=== PATIENT | female | born 1960 | race Caucasian/White ===

== ENCOUNTER → 2018-07-12 09:12 | Outpatient (CLI) | payer MEDICAID, SELFPAY ==
--- NOTE | 2018-07-12 10:06 | MM_ITS ---
MM Dig screening mamm BI w/CAD CAD Screening COMPARISON: Digital mammograms with CAD 07/06/2012 and 08/02/2013 INDICATION: There is no personal or family history of breast cancer TECHNIQUE: Standard CC and MLO images were obtained. R2 CAD reviewed. FINDINGS: Scattered fibroglandular densities are seen throughout both breasts. There is a stable nodular density with smooth borders 6:00 position right breast which has been shown to be cystic on previous ultrasound exam. There is no new or suspicious lesion in either breast. There is a benign-appearing calcification right breast. There are no suspicious microcalcifications. IMPRESSION: Stable exam no suspicious lesion seen BI-RADS Category: 2 Benign Finding(s) RECOMMENDED FOLLOW-UP: 1YR - 1 YEAR FOLLOW-UP (A letter has been sent to the patient regarding results of the study.)
== END ==
PROVIDERS: PCP Internal Medicine Adolescent Medicine; Visit Provider Nurse Practitioner Family
DX: Z12.31 Encounter for screening mammogram for malignant neoplasm of breast (principal)
CPT/HCPCS: 77067

== ENCOUNTER → 2019-02-21 12:32 | Outpatient (CLI) | payer MEDICAID, SELFPAY ==
--- NOTE | 2019-02-21 12:36 | XR_ITS ---
PROCEDURE: XR CHEST 2V CLINICAL HISTORY: COPD COPD, smoker COMPARISON: CXR CHEST(2 VIEWS-NOT PORTABLE) from 06/21/2012 CXR CHEST(2 VIEWS-NOT PORTABLE) from 10/27/2014 CXR CHEST(2 VIEWS-NOT PORTABLE) from 02/25/2015 FINDINGS: The cardiomediastinal silhouette and pulmonary vascularity are within normal limits. The lungs are clear without infiltrates, suspicious nodules, or pleural effusions. No acute bony abnormalities. IMPRESSION: No acute findings. Dictated by: Bryce Rodríguez MD 02/21/2019 17:12 Electronically signed by Bryce Rodríguez MD in [place] 02/21/2019 17:12
== END ==
PROVIDERS: PCP Internal Medicine Adolescent Medicine; Visit Provider Nurse Practitioner
DX: J44.9 Chronic obstructive pulmonary disease, unspecified (principal)
CPT/HCPCS: 71046

== ENCOUNTER 2019-02-25 16:25 | Observation (INO) ==
--- NOTE | 2019-02-25 17:03 | Emergency Department Note ---
ED Disposition Clinical Impression: Abdominal pain Disposition: Still a Patient Condition on Discharge: Table stool patient Instructions: DI for Acute Abdomen Referrals: Jluis Marie MD [Primary Care Provider] - - Critical Care Critical Care Time: No Attestation: On 02/25/19, the high probability of a clinically significant, sudden or life threatening deterioration of the following system(s) required my full and direct attention, intervention and personal management. The time I documented below is in addition to time spent performing reported procedures but includes the following listed in this critical care notation. Comment: Care patient turned over to Dr. Curiel. Medical Decision Making - Medical Records Medical records reviewed: Yes: I reviewed the patient's medical records. - Rubio Inquiry Pt receiving controlled substance: No Vital Signs: 02/25/19 16:44 Temperature 97.8 F Temperature Source Oral Pulse Rate [Radial] 84 Respiratory Rate 16 Blood Pressure [Right Arm] 172/93 H Blood Pressure Mean [Right Arm] 119 Blood Pressure Source [Right Arm] Automatic Cuff Blood Pressure Position [Right Arm] Sitting 02 Sat by Pulse Oximetry 98 Oxygen Delivery Method Room Air Orders (Tests/Meds): ED MEDICATIONS Discontinued Medications Generic Name Dose Route Start Last Admin Trade Name Freq PRN Reason Stop Dose Admin Diatrizoate Meglum/Diatrizoate Sod 30 ml 02/25/19 17:07 02/25/19 17:12 Gastrografin 66%-10% 30ml PO 02/25/19 17:08 30 ml ONCE ONE Administration ORDERS Category Date Time Status CT abdomen pelvis w con Stat Cat Scan 02/25/19 17:02 Ordered CBC [Complete Blood Count Auto Diff] Stat Lab 02/25/19 17:10 Received CMP [Comprehensive Metabolic Panel] Stat Lab 02/25/19 17:10 Received Lipase Stat Lab 02/25/19 17:10 Received PTT [Activated Partial Thrombo Time] Stat Lab 02/25/19 17:10 Received Prothrombin Time INR Stat Lab 02/25/19 17:10 Received Urinalysis and Microscopic Stat Lab 02/25/19 17:10 Received Abdominal Pain HPI - General Chief Complaint: Abdominal Pain Stated Complaint: Back,Right side.l Should, black stools Time Seen by Provider: 02/25/19 16:46 Mode of Arrival: Ambulatory Limitations: No Limitations Description of Symptoms (Recalled from ER Triage Doc. by RN): PATIENT COMPLAINS OF RIGHT SIDED BACK PAIN FOR 3-4 DAYS THAT RADIATES AROUND RIGHT LOWER ABDOMEN AND UP INTO LEFT SHOULDER. PATIENT COMPLAINS OF BLACK STOOLS. - History of Present Illness MD complaint: abdominal pain, flank pain Onset (ago): day(s) (3) Consistency: constant Location: RLQ Severity: severe Quality: aching Radiation: R flank Migration to: no migration Relieving factors: nothing Exacerbating factors: nothing - Related Data Home Medications Medication Instructions Recorded Confirmed atorvastatin 80 mg tablet PO 30 Days #30 tab 08/16/18 08/16/18 citalopram 40 mg tablet PO 30 Days #30 tab 08/16/18 08/16/18 fluticasone furoate 100 INHALATION 30 Days #60 each 08/16/18 08/16/18 mcg-vilanterol 25 mcg/dose inhalation powder lisinopril 20 PO 30 Days #30 tab 08/16/18 08/16/18 mg-hydrochlorothiazide 25 mg tablet metoprolol succinate ER 100 mg PO 30 Days #30 tab 08/16/18 08/16/18 tablet,extended release 24 hr omeprazole 40 mg capsule,delayed PO 30 Days #30 cap 08/16/18 08/16/18 release Previous Rx's Medication Instructions Recorded Benzonatate [Tessalon Perle 100mg 100 mg PO TID PRN #30 cap 10/15/17 Cap] Fluticasone Propionate [Flonase 2 spr NS DAILY #1 bottle 10/15/17 50mcg nasal spray 16gm] Allergies Allergy/AdvReac Type Severity Reaction Status Date / Time No Known Allergies Allergy Verified 08/16/18 08:42 [facility] History - Hepatitis A Screen Drug use history?: No High risk sexual behaviors?: No History of sexually transmitted infection?: No Currently employed?: No Childcare worker?: No Do you have indoor plumbing?: Yes Do you have electricity?: Yes Attestation statement:: This patient has been screened for Hepatitis A risk factors. I have reviewed the patient's past medical history: Yes Medical History: Reports:: Chronic Obstructive Pulmonary Disease (COPD), Hypertension Other Surgeries: Yes: Colonoscopy, Hysterectomy-Total Amputation: No Fractures: No - Social History Educational Level: Completed High School Smoking Status: Current every day smoker Tobacco Type: cigarettes # Packs/Day (cigarettes): 1 Alcohol Intake: never Occupational Status: other Family Hx:: No significant family history ROS Obtained: Yes All systems reviewed & no additional complaints - Constitutional Constitutional: Reports fatigue, Reports malaise - Eyes Eyes: Reports system reviewed and no additional complaints, except as docu - ENT Ears, Nose, Mouth, and Throat: Reports system reviewed and no additional complaints, except as docu - Cardiovascular Cardiovascular: Reports system reviewed and no additional complaints, except as docu - Respiratory Respiratory: Yes system reviewed and no additional complaints, except as docu - Gastrointestinal Gastrointestingal: Reports: abdominal pain, nausea, vomiting - Genitourinary Female Genitourinary: Reports system reviewed and no additional complaints, except as docu - Musculoskeletal Musculoskeletal: Reports system reviewed and no additional complaints, except as docu - Integumentary/Breasts Skin/Breast: Reports system reviewed and no additional complaints, except as docu - Neurologic Neurologic: Reports system reviewed and no additional complaints, except as docu - Endocrine Endocrine: Reports system reviewed and no additional complaints, except as docu - Hematologic/Lymphatic Henatologic/Lymphatic: Reports system reviewed and no additional complaints, except as docu - Allergic/Immunologic Allergic/Immunologic: Reports system reviewed and no additional complaints, except as docu Physical Exam - General General appearance: alert, in no apparent distress - Head Head exam: atraumatic, normocephalic, normal inspection - Eye Eye exam: Present: normal appearance, PERRL, EOMI - ENT ENT exam: Present: normal exam, normal oropharynx, mucous membranes moist, TM's normal bilaterally, normal external ear exam - Neck Neck exam: Present: normal inspection, full ROM, trachea midline. Absent: meningismus, lymphadenopathy - Chest Chest inspection: Present: normal inspection, symmetric chest wall rise. Absent: tenderness - Respiratory Respiratory exam: Present: normal lung sounds bilaterally. Absent: respiratory distress - Cardiovascular Cardiovascular exam: Present: regular rate, normal rhythm, normal heart sounds. Absent: JVD - Abdominal Exam Abdominal exam: Present: soft, tenderness, diminished bowel sounds. Absent: distention, guarding, rebound, rigidity Abdominal tenderness: Present: RUQ, RLQ - Extremities Exam Extremities exam: Present: normal inspection, full ROM, normal capillary refill. Absent: calf tenderness - Back Exam Back exam: Present: normal inspection. Absent: tenderness - Neurological Exam Neurological exam: Present: alert, oriented X3 - Psychiatric Psychiatric exam: Present: normal affect, normal mood - Skin Skin exam: Present: warm, dry, intact, normal color
[2019-02-25 17:15] LABS: Microscopic, Urine URINE MICROSCOPIC (MICROSCOPIC)
[2019-02-25 17:28] LABS: Basophils % 0.4 % (0.1-2.0); Eosinophils # 0.1 K/mm3 (0.0-0.4); Eosinophils % 1.1 % (0.1-12.0); Hematocrit 45.6 % (37.0-47.0); Hemoglobin 14.7 g/dL (12.2-16.2); Lymphocytes # 2.4 K/mm3 (0.7-4.5); Lymphocytes % 33.8 % (10-50); Mean Corpuscular HGB Conc 32.3 g/dL (31.8-35.4); Mean Corpuscular Volume 92.4 fl (81-99); Mean Platelet Volume 8.3 fl (7.4-10.4); Monocytes # 0.5 K/mm3 (0.1-1.0); Monocytes % 7.2 % (1.7-9.3); Neutrophils # 4.1 K/mm3 (1.8-7.8); Neutrophils % 57.4 % (37.0-80.0); Platelet Count 256 K/mm3 (142-424); Red Blood Count 4.93 M/mm3 (4.20-5.40); Red Cell Distribution Width 13.5 % (11.5-17.5); White Blood Count 7.1 K/mm3 (4.8-10.8)
[2019-02-25 17:29] LABS: Appearance,Urine CLEAR (Clear); Bilirubin,Urine Negative (Negative); Blood, Urine TRACE-I (Negative); Color,Urine YELLOW (Yellow); Glucose,Urine (UA) Negative (Negative); Ketones,Urine Negative (Negative); Leukocyte Esterase,Urine Negative (Negative); Protein,Urine Negative (Negative); Urobilinogen,Urine 0.2 EU/dl (0.2)
[2019-02-25 17:33] LABS: Activated Partial Thrombo Time 31.7 seconds (23.6-34.0); INR 1.03 (0.9-1.1); Prothrombin Time 10.7 seconds (9.4-11.8)
[2019-02-25 17:39] LABS: Albumin Level 3.7 gm/dL (3.4-5.0); Albumin/Globulin Ratio 0.9 (1.1-1.8); Bilirubin,Total 0.3 mg/dL (0.2-1.0); Globulin 3.9 gm/dl (1.3-3.2); RBC,Urine Occasional #/hpf (0-3); Total Protein,Serum 7.6 gm/dL (6.4-8.2)
[2019-02-25 17:40] LABS: Bacteria,Urine 1+ /lpf; Mucus,Urine 1+ /lpf; WBC,Urine Occasional #/hpf (0-3)
--- NOTE | 2019-02-25 20:39 | Emergency Department Note ---
ED Disposition Clinical Impression: Abdominal pain, Colitis Disposition: Admitted as Observation Condition on Discharge: Good Instructions: DI for Acute Abdomen Referrals: Jluis Marie MD [Primary Care Provider] - Time of Disposition: 20:40 - Critical Care Critical Care Time: No Attestation: On 02/25/19, the high probability of a clinically significant, sudden or life threatening deterioration of the following system(s) required my full and direct attention, intervention and personal management. The time I documented below is in addition to time spent performing reported procedures but includes the following listed in this critical care notation. Medical Decision Making - Medical Records Medical records reviewed: Yes: I reviewed the patient's medical records. - Rubio Inquiry Pt receiving controlled substance: No Rubio was queried for this patient: No Vital Signs: 02/25/19 16:44 Temperature 97.8 F Temperature Source Oral Pulse Rate [Radial] 84 Respiratory Rate 16 Blood Pressure [Right Arm] 172/93 H Blood Pressure Mean [Right Arm] 119 Blood Pressure Source [Right Arm] Automatic Cuff Blood Pressure Position [Right Arm] Sitting 02 Sat by Pulse Oximetry 98 Oxygen Delivery Method Room Air - Lab Data Lab results reviewed: Yes: I reviewed the patient's lab results. Lab Results 02/25/19 17:10: WBC 7.1, RBC 4.93, Hgb 14.7, Hct 45.6, MCV 92.4, MCH 29.9, MCHC 32.3, RDW 13.5, Plt Count 256, MPV 8.3, Neut % (Auto) 57.4, Lymph % (Auto) 33.8, [place] % (Auto) 7.2, Eos % (Auto) 1.1, Baso % (Auto) 0.4, Neut # (Auto) 4.1, Lymph # (Auto) 2.4, [place] # (Auto) 0.5, Eos # (Auto) 0.1, Baso # (Auto) 0.0 02/25/19 17:10: Sodium 139, Potassium 4.0, Chloride 104, Carbon Dioxide 30, Anion Gap 9.0, BUN 7, Creatinine 0.82, Estimated Creat Clear 79, Estimated GFR 71, Est GFR ( Amer) 86, Glucose 92, Calcium 9.0, Total Bilirubin 0.3, AST 14 L, ALT 19, Alkaline Phosphatase 109, Total Protein 7.6, Albumin 3.7, Globulin 3.9 H, Albumin/Globulin Ratio 0.9 L 02/25/19 17:10: Urine Color Yellow, Urine Appearance Clear, Urine pH 6.0, Ur Specific [place] 1.010, Urine Protein Negative, Urine Glucose (UA) Negative, Urine Ketones Negative, Urine Blood Trace-i, Urine Nitrate Negative, Urine Bilirubin Negative, Urine Urobilinogen 0.2, Ur Leukocyte Esterase Negative, Urine RBC Occasional, Urine WBC Occasional, Ur Squamous Epith Cells 3-5, Urine Bacteria 1+, Urine Mucus 1+ 02/25/19 17:10: PT 10.7, INR 1.03, APTT 31.7 02/25/19 17:10: Lipase 131 Result diagrams: 02/25/19 17:10 02/25/19 17:10 Orders (Tests/Meds): ED MEDICATIONS Generic Name Dose Route Start Last Admin Trade Name Freq PRN Reason Stop Dose Admin Metronidazole 500 mg in 100 mls @ 100 mls/hr 02/25/19 20:15 Flagyl 500mg/100ml Ivpb IV 03/11/19 20:14 Q8H PARISA Protocol Levofloxacin/Dextrose 750 mg in 150 mls @ 100 mls/hr 02/25/19 20:15 02/25/19 20:11 Levofloxacin 750mg/150ml Premix IV 03/11/19 20:14 100 mls/hr Q24H PARISA Administration Protocol Discontinued Medications Generic Name Dose Route Start Last Admin Trade Name Freq PRN Reason Stop Dose Admin Diatrizoate Meglum/Diatrizoate Sod 30 ml 02/25/19 17:07 02/25/19 17:12 Gastrografin 66%-10% 30ml PO 02/25/19 17:08 30 ml ONCE ONE Administration Methylprednisolone Sodium Succinate 125 mg 02/25/19 20:16 Solu-Medrol 125mg/2ml Vial IV 02/25/19 20:17 ONCE ONE ORDERS Category Date Time Status CT abdomen pelvis w con Stat Cat Scan 02/25/19 17:02 Taken Diarrhea 6-11 Panel, Cdiff PCR Stat Lab 02/25/19 19:00 Received - Physician Consults Physician Consulted: guanaco cueva. Reason -: Admission Additional Consult: shannan Time: 20:30 Reason -: Pt condition Abdominal Pain HPI - General Chief Complaint: Abdominal Pain Stated Complaint: Back,Right side.l Should, black stools Time Seen by Provider: 02/25/19 16:46 Mode of Arrival: Ambulatory Limitations: No Limitations Description of Symptoms (Recalled from ER Triage Doc. by RN): PATIENT COMPLAINS OF RIGHT SIDED BACK PAIN FOR 3-4 DAYS THAT RADIATES AROUND RIGHT LOWER ABDOMEN AND UP INTO LEFT SHOULDER. PATIENT COMPLAINS OF BLACK STOOLS. - History of Present Illness MD complaint: abdominal pain, flank pain Location: RLQ Severity: severe Quality: aching Migration to: no migration Relieving factors: nothing Exacerbating factors: nothing - Related Data Home Medications Medication Instructions Recorded Confirmed atorvastatin 80 mg tablet PO 30 Days #30 tab 08/16/18 08/16/18 citalopram 40 mg tablet PO 30 Days #30 tab 08/16/18 08/16/18 fluticasone furoate 100 INHALATION 30 Days #60 each 08/16/18 08/16/18 mcg-vilanterol 25 mcg/dose inhalation powder lisinopril 20 PO 30 Days #30 tab 08/16/18 08/16/18 mg-hydrochlorothiazide 25 mg tablet metoprolol succinate ER 100 mg PO 30 Days #30 tab 08/16/18 08/16/18 tablet,extended release 24 hr omeprazole 40 mg capsule,delayed PO 30 Days #30 cap 08/16/18 08/16/18 release Previous Rx's Medication Instructions Recorded Benzonatate [Tessalon Perle 100mg 100 mg PO TID PRN #30 cap 10/15/17 Cap] Fluticasone Propionate [Flonase 2 spr NS DAILY #1 bottle 10/15/17 50mcg nasal spray 16gm] Allergies Allergy/AdvReac Type Severity Reaction Status Date / Time No Known Allergies Allergy Verified 08/16/18 08:42 [facility] History - Hepatitis A Screen Drug use history?: No High risk sexual behaviors?: No History of sexually transmitted infection?: No Currently employed?: No Childcare worker?: No Do you have indoor plumbing?: Yes Do you have electricity?: Yes Attestation statement:: This patient has been screened for Hepatitis A risk factors. Medical History: Reports:: Chronic Obstructive Pulmonary Disease (COPD), Hypertension Other Surgeries: Yes: Colonoscopy, Hysterectomy-Total Amputation: No Fractures: No - Social History Educational Level: Completed High School Smoking Status: Current every day smoker Tobacco Type: cigarettes # Packs/Day (cigarettes): 1 Alcohol Intake: never Occupational Status: other Family Hx:: No significant family history ROS Obtained: Yes All systems reviewed & no additional complaints - Constitutional Constitutional: Reports system reviewed and no additional complaints, except as docu - Eyes Eyes: Reports system reviewed and no additional complaints, except as docu, Denies change in vision - ENT Ears, Nose, Mouth, and Throat: Reports system reviewed and no additional complaints, except as docu - Cardiovascular Cardiovascular: Reports system reviewed and no additional complaints, except as docu - Respiratory Respiratory: Yes system reviewed and no additional complaints, except as docu - Gastrointestinal Gastrointestingal: Reports: abdominal pain. Denies: belching, bloating - Musculoskeletal Musculoskeletal: Denies joint swelling - Integumentary/Breasts Skin/Breast: Denies rash - Neurologic Neurologic: Denies sensory deficit, Denies syncope, Denies vertigo, Denies weakness - Hematologic/Lymphatic Henatologic/Lymphatic: Denies easy bleeding, Denies easy bruising Physical Exam - General General appearance: alert, in no apparent distress - Head Head exam: atraumatic, normocephalic, normal inspection - Eye Eye exam: Present: normal appearance, PERRL, EOMI - ENT ENT exam: Present: normal exam, normal oropharynx, mucous membranes moist, TM's normal bilaterally, normal external ear exam - Neck Neck exam: Present: normal inspection, full ROM, trachea midline. Absent: meningismus, lymphadenopathy - Chest Chest inspection: Present: normal inspection, symmetric chest wall rise. Absent: tenderness - Respiratory Respiratory exam: Present: normal lung sounds bilaterally. Absent: respiratory distress - Cardiovascular Cardiovascular exam: Present: regular rate, normal rhythm. Absent: JVD - Abdominal Exam Abdominal exam: Present: soft, normal bowel sounds. Absent: distention, tenderness, guarding - Extremities Exam Extremities exam: Present: normal inspection, full ROM, normal capillary refill. Absent: calf tenderness - Back Exam Back exam: Present: normal inspection. Absent: tenderness - Neurological Exam Neurological exam: Present: alert, oriented X3 - Psychiatric Psychiatric exam: Present: normal affect, normal mood - Skin Skin exam: Present: warm, dry, intact, normal color
[2019-02-26 06:48] LABS: Basophils % 0.2 % (0.1-2.0); Eosinophils # 0.1 K/mm3 (0.0-0.4); Eosinophils % 1.7 % (0.1-12.0); Hematocrit 41.6 % (37.0-47.0); Hemoglobin 13.6 g/dL (12.2-16.2); Lymphocytes # 0.6 K/mm3 (0.7-4.5); Lymphocytes % 10.2 % (10-50); Mean Corpuscular HGB Conc 32.6 g/dL (31.8-35.4); Mean Corpuscular Volume 91.1 fl (81-99); Mean Platelet Volume 7.5 fl (7.4-10.4); Monocytes % 0.8 % (1.7-9.3); Neutrophils % 87.1 % (37.0-80.0); Platelet Count 233 K/mm3 (142-424); Red Blood Count 4.56 M/mm3 (4.20-5.40); Red Cell Distribution Width 13.5 % (11.5-17.5); White Blood Count 5.7 K/mm3 (4.8-10.8)
[2019-02-26 06:54] LABS: Anion Gap 13.2 mEq/L (5-15); Calcium 8.8 mg/dL (8.5-10.1)
[2019-02-26 07:00] LABS: Lymphocytes % 5 % (10-50); Neutrophils % 89 % (42-76); Total Cells Counted 100
[2019-02-26 07:01] LABS: RBC Morphology Normal
--- NOTE | 2019-02-26 07:46 | History & Physical Report ---
*Admission Date: 02/25/19 *Chief complaint: Abdominal pain *History of present illness: 58-year-old female presented to the emergency department with 3 days of crampy abdominal pain that was unrelenting and not improving. Patient denies fevers, nausea, vomiting. On the day of admission she had had 3-4 watery black stools. Pain was not made worse by eating or drinking. Patient had been self treating at home with application of ice packs and heating pad to her abdomen without improvement. She has no prior history of similar abdominal pains and is unsure of any family history of gastrointestinal diseases. Work-up in the emergency department was really significant only for abnormal CT scan which showed mild changes in the descending and sigmoid colon consistent with colitis. ER physician spoke with on-call surgeon but it was not felt this was a surgical issue at this time. Decision was made to admit for observation and IV antibiotics. This morning patient reports pain is slightly better. Nursing staff is reported patient made no request for pain medication overnight. [facility] History Medical History: Reports:: Chronic Obstructive Pulmonary Disease (COPD), Hypertension *Have you ever received a pneumonia vaccine?: Yes *Have you received a flu vaccine this season?: No (Wants flu shot) Other Surgeries: Yes: Colonoscopy, Hysterectomy-Total Amputation: No Fractures: No - *Social History Educational Level: Attended Grade School Smoking Status: Current every day smoker Tobacco Type: cigarettes # Packs/Day (cigarettes): 1 Alcohol Intake: never *Occupational Status:: other *Travel in the last 8 weeks: None Family Hx:: No significant family history Review of Systems - Constitutional Denies anorexia, Denies body ache(s), Denies chills, Denies malaise - *Cardiovascular Denies chest pain - *Respiratory Denies change in phlegm color, Denies chest congestion - *Gastrointestinal Reports abdominal pain, Reports bloating, Reports change in bowel habits, Reports change in stools, Reports cramping, Reports loose stools, Denies belching, Denies constipation, Denies heartburn, Denies heartburn, Denies vomiting blood, Denies bright, red blood in stools, Denies nausea, Denies vomiting - *Neurologic Denies sensory deficit, Denies fainting, Denies dizziness, Denies weakness Meds Home Medications Medication Instructions Recorded Confirmed Type atorvastatin 80 mg tablet 80 mg PO DAILY 30 Days #30 tab 08/16/18 02/25/19 History citalopram 40 mg tablet 40 mg pe PO DAILY 30 Days #30 tab 08/16/18 02/25/19 [place] fluticasone furoate 100 100 mcg INHALATION BID PRN 30 Days 08/16/18 02/25/19 History mcg-vilanterol 25 mcg/dose #60 each inhalation powder lisinopril 20 20 - 25 mg PO DAILY 30 Days #30 tab 08/16/18 02/25/19 History mg-hydrochlorothiazide 25 mg tablet metoprolol succinate ER 100 mg 100 mg PO DAILY 30 Days #30 tab 08/16/18 02/25/19 History tablet,extended release 24 hr omeprazole 40 mg capsule,delayed 40 mg PO DAILY 30 Days #30 cap 08/16/18 02/25/19 History release Allergies Allergy/AdvReac Type Severity Reaction Status Date / Time No Known Allergies Allergy Verified 08/16/18 08:42 Exam Vital signs and Labs for Last 24 Hours: Temp Pulse Resp BP Pulse Ox 98.1 F 79 16 158/80 H 93 L 02/26/19 04:00 02/26/19 04:00 02/26/19 04:00 02/26/19 04:00 02/26/19 04:00 Laboratory Results - last 24 hr 02/25/19 17:10: WBC 7.1, RBC 4.93, Hgb 14.7, Hct 45.6, MCV 92.4, MCH 29.9, MCHC 32.3, RDW 13.5, Plt Count 256, MPV 8.3, Neut % (Auto) 57.4, Lymph % (Auto) 33.8, [place] % (Auto) 7.2, Eos % (Auto) 1.1, Baso % (Auto) 0.4, Neut # (Auto) 4.1, Lymph # (Auto) 2.4, [place] # (Auto) 0.5, Eos # (Auto) 0.1, Baso # (Auto) 0.0 02/25/19 17:10: Sodium 139, Potassium 4.0, Chloride 104, Carbon Dioxide 30, Anion Gap 9.0, BUN 7, Creatinine 0.82, Estimated Creat Clear 79, Estimated GFR 71, Est GFR ( Amer) 86, Glucose 92, Calcium 9.0, Total Bilirubin 0.3, AST 14 L, ALT 19, Alkaline Phosphatase 109, Total Protein 7.6, Albumin 3.7, Globulin 3.9 H, Albumin/Globulin Ratio 0.9 L 02/25/19 17:10: Urine Color Yellow, Urine Appearance Clear, Urine pH 6.0, Ur Specific [place] 1.010, Urine Protein Negative, Urine Glucose (UA) Negative, Urine Ketones Negative, Urine Blood Trace-i, Urine Nitrate Negative, Urine Bilirubin Negative, Urine Urobilinogen 0.2, Ur Leukocyte Esterase Negative, Urine RBC Occasional, Urine WBC Occasional, Ur Squamous Epith Cells 3-5, Urine Bacteria 1+, Urine Mucus 1+ 02/25/19 17:10: PT 10.7, INR 1.03, APTT 31.7 02/25/19 17:10: Lipase 131 02/25/19 19:00: Stl Aeromonas (PCR) Not detected, Stl C. cayetanensis PCR Not detected, Stool Rotavirus (PCR) Not detected, Stl Adenov F 40/41 PCR Not detected, Stool Astrovirus (PCR) Not detected, Stool Campylobacter PCR Not detected, Stl C.difficile Tox PCR Not detected, Stool Cryptosporidium PCR Not detected, Stl E.coli Shiga Tox PCR Not detected, Stool E coli O157 PCR Not detected, Stl Enterotoxigenic E PCR Not detected, Stool EPEC (PCR) Not detected, Stool EAEC (PCR) Not detected, Stl E. histolytica PCR Not detected, Stool Giardia Lamblia PCR Not detected, Stool Salmonella PCR Not detected, Stool Sapovirus (PCR) Not detected, Stl P. shigelloides PCR Not detected, Stl Shigella/EIEC PCR Not detected, St Y.enterocolitica PCR Not detected, Stool Vibrio (PCR) Not detected, Stl Vibrio cholerae PCR Not detected, Stl Norovirus GI/GII PCR Not detected 02/25/19 20:37: Stool Occult Blood Negative 02/26/19 06:23: WBC 5.7, RBC 4.56, Hgb 13.6, Hct 41.6, MCV 91.1, MCH 29.7, MCHC 32.6, RDW 13.5, Plt Count 233, MPV 7.5, Neut % (Auto) 87.1 H, Lymph % (Auto) 10.2, [place] % (Auto) 0.8 L, Eos % (Auto) 1.7, Baso % (Auto) 0.2, Neut # (Auto) 5.0, Lymph # (Auto) 0.6 L, [place] # (Auto) 0.0 L, Eos # (Auto) 0.1, Baso # (Auto) 0.0, Total Counted 100, Neutrophils % (Manual) 89 H, Band Neutrophils % 6.0, Lymphocytes % (Manual) 5 L, Platelet Estimate Normal, RBC Morphology Normal 02/26/19 06:23: Sodium 139, Potassium 4.2, Chloride 106, Carbon Dioxide 24, Anion Gap 13.2, BUN 10 D, Creatinine 0.76, Estimated Creat Clear 86, Estimated GFR 78, Est GFR ( Amer) 94, Glucose 149 H D, Calcium 8.8 I & O for Last 24 hours: Intake & Output 02/23/19 02/24/19 02/25/19 02/26/19 11:59 11:59 11:59 11:59 Intake Total 806 / 806 Output Total 150 / 150 Balance 656 / 656 Weight 150 lb 4 oz Narrative: Patient awakens easily this morning. During interview and exam she does appear uncomfortable. Oropharynx is clear. Neck has no lymphadenopathy. Lungs are distant but overall clear without rales, rhonchi, wheezes. Heart has a regular rate and rhythm. Abdomen is soft and mildly distended with minimal tenderness along the left upper and lower quadrant. Bowel sounds are present. Patient has active range of motion in all extremities. No neurologic deficit. Assessment and Plan (1) Colitis Current visit: Yes Status: Acute Category: Medical Code(s): K52.9 - Noninfective gastroenteritis and colitis, unspecified Patient will continue on Levaquin and Flagyl. Advance diet to clear liquids. I have discussed with patient the possibility of going home this afternoon if she is feeling better and is not requiring any significant interventions for pain control.
--- NOTE | 2019-02-26 11:02 | Pharmacy Consult Notes ---
[facility] VTE Monitoring - Patient Demographics Admission date: 02/25/19 Report Date: 02/26/19 Time: 11:02 Allergies/Adverse Reactions: Patient Allergies No Known Allergies Allergy (Verified 08/16/18 08:42) Height: 1.63 m Weight: 68.152 kg Patient Problems: Current Active Problems Abdominal pain (Acute) Colitis (Acute) - VTE Risk Labs: VTE Related Lab Results Hgb 13.6 g/dL (12.2-16.2) 02/26/19 06:23 Hct 41.6 % (37.0-47.0) 02/26/19 06:23 Plt Count 233 K/mm3 (142-424) 02/26/19 06:23 PT 10.7 seconds (9.4-11.8) 02/25/19 17:10 INR 1.03 (0.9-1.1) 02/25/19 17:10 APTT 31.7 seconds (23.6-34.0) 02/25/19 17:10 BUN 10 mg/dL (7-18) D 02/26/19 06:23 Creatinine 0.76 mg/dL (0.55-1.02) 02/26/19 06:23 Estimated Creat Clear 86 mL/min (50-200) 02/26/19 06:23 VTE Score: 1 - Prophylaxis VTE Prophylaxis Ordered?: Yes Types of VTE Prophylaxis: TEDS Knee High Location of Applied Device: Bilateral Lower Extremeties
--- NOTE | 2019-02-26 14:40 | Discharge Summary ---
General - General Admission date:: 02/25/19 Discharge date: 02/26/19 HPI HPI: 58-year-old female presented to the emergency department with 3 days of crampy abdominal pain that was unrelenting and not improving. Patient denies fevers, nausea, vomiting. On the day of admission she had had 3-4 watery black stools. Pain was not made worse by eating or drinking. Patient had been self treating at home with application of ice packs and heating pad to her abdomen without improvement. She has no prior history of similar abdominal pains and is unsure of any family history of gastrointestinal diseases. Work-up in the emergency department was really significant only for abnormal CT scan which showed mild changes in the descending and sigmoid colon consistent with colitis. ER physician spoke with on-call surgeon but it was not felt this was a surgical issue at this time. Decision was made to admit for observation and IV antibiotics. This morning patient reports pain is slightly better. Nursing staff is reported patient made no request for pain medication overnight. Hospital Course Hospital Course: Patient was admitted and observed. Her abdominal pain improved and she did not require additional pain medication for abdominal pain.Her WBC remained normal. Her diet was advanced to full liquids which she tolerated. She did have some loose stools. As she was tolerating her diet and not requiring pain medication she was discharged to home and will follow up with as an outpatient. She was discharged home on oral metronidazole and cipro. Objective Vital signs: Temp Pulse Resp BP Pulse Ox 97.8 F 74 18 158/83 H 94 L 02/26/19 07:43 02/26/19 07:43 02/26/19 07:43 02/26/19 07:43 02/26/19 08:00 Results Labs on day of discharge: Labs from last 24 hours 02/26/19 02/26/19 02/26/19 11:40 06:23 06:23 WBC 5.7 RBC 4.56 Hgb 13.6 Hct 41.6 MCV 91.1 MCH 29.7 MCHC 32.6 RDW 13.5 Plt Count 233 MPV 7.5 Neut % (Auto) 87.1 H Lymph % (Auto) 10.2 [place] % (Auto) 0.8 L Eos % (Auto) 1.7 Baso % (Auto) 0.2 Neut # (Auto) 5.0 Lymph # (Auto) 0.6 L [place] # (Auto) 0.0 L Eos # (Auto) 0.1 Baso # (Auto) 0.0 Total Counted 100 Neutrophils % (Manual) 89 H Band Neutrophils % 6.0 Lymphocytes % (Manual) 5 L Platelet Estimate Normal RBC Morphology Normal PT INR APTT Sodium 139 Potassium 4.2 Chloride 106 Carbon Dioxide 24 Anion Gap 13.2 BUN 10 D Creatinine 0.76 Estimated Creat Clear 86 Estimated GFR 78 Est GFR ( Amer) 94 Glucose 149 H D Calcium 8.8 Total Bilirubin AST ALT Alkaline Phosphatase Total Protein Albumin Globulin Albumin/Globulin Ratio Lipase Urine Color Urine Appearance Urine pH Ur Specific [place] Urine Protein Urine Glucose (UA) Urine Ketones Urine Blood Urine Nitrate Urine Bilirubin Urine Urobilinogen Ur Leukocyte Esterase Urine RBC Urine WBC Ur Squamous Epith Cells Urine Bacteria Urine Mucus Stool Occult Blood Negative Stl Aeromonas (PCR) Stl C. cayetanensis PCR Stool Rotavirus (PCR) Stl Adenov F 40/41 PCR Stool Astrovirus (PCR) Stool Campylobacter PCR Stl C.difficile Tox PCR Stool Cryptosporidium PCR Stl E.coli Shiga Tox PCR Stool E coli O157 PCR Stl Enterotoxigenic E PCR Stool EPEC (PCR) Stool EAEC (PCR) Stl E. histolytica PCR Stool Giardia Lamblia PCR Stool Salmonella PCR Stool Sapovirus (PCR) Stl P. shigelloides PCR Stl Shigella/EIEC PCR St Y.enterocolitica PCR Stool Vibrio (PCR) Stl Vibrio cholerae PCR Stl Norovirus GI/GII PCR 02/25/19 02/25/19 02/25/19 20:37 19:00 17:10 WBC RBC Hgb Hct MCV MCH MCHC RDW Plt Count MPV Neut % (Auto) Lymph % (Auto) [place] % (Auto) Eos % (Auto) Baso % (Auto) Neut # (Auto) Lymph # (Auto) [place] # (Auto) Eos # (Auto) Baso # (Auto) Total Counted Neutrophils % (Manual) Band Neutrophils % Lymphocytes % (Manual) Platelet Estimate RBC Morphology PT INR APTT Sodium Potassium Chloride Carbon Dioxide Anion Gap BUN Creatinine Estimated Creat Clear Estimated GFR Est GFR ( Amer) Glucose Calcium Total Bilirubin AST ALT Alkaline Phosphatase Total Protein Albumin Globulin Albumin/Globulin Ratio Lipase 131 Urine Color Urine Appearance Urine pH Ur Specific [place] Urine Protein Urine Glucose (UA) Urine Ketones Urine Blood Urine Nitrate Urine Bilirubin Urine Urobilinogen Ur Leukocyte Esterase Urine RBC Urine WBC Ur Squamous Epith Cells Urine Bacteria Urine Mucus Stool Occult Blood Negative Stl Aeromonas (PCR) Not detected Stl C. cayetanensis PCR Not detected Stool Rotavirus (PCR) Not detected Stl Adenov F 40/41 PCR Not detected Stool Astrovirus (PCR) Not detected Stool Campylobacter PCR Not detected Stl C.difficile Tox PCR Not detected Stool Cryptosporidium PCR Not detected Stl E.coli Shiga Tox PCR Not detected Stool E coli O157 PCR Not detected Stl Enterotoxigenic E PCR Not detected Stool EPEC (PCR) Not detected Stool EAEC (PCR) Not detected Stl E. histolytica PCR Not detected Stool Giardia Lamblia PCR Not detected Stool Salmonella PCR Not detected Stool Sapovirus (PCR) Not detected Stl P. shigelloides PCR Not detected Stl Shigella/EIEC PCR Not detected St Y.enterocolitica PCR Not detected Stool Vibrio (PCR) Not detected Stl Vibrio cholerae PCR Not detected Stl Norovirus GI/GII PCR Not detected 02/25/19 02/25/19 02/25/19 17:10 17:10 17:10 WBC RBC Hgb Hct MCV MCH MCHC RDW Plt Count MPV Neut % (Auto) Lymph % (Auto) [place] % (Auto) Eos % (Auto) Baso % (Auto) Neut # (Auto) Lymph # (Auto) [place] # (Auto) Eos # (Auto) Baso # (Auto) Total Counted Neutrophils % (Manual) Band Neutrophils % Lymphocytes % (Manual) Platelet Estimate RBC Morphology PT 10.7 INR 1.03 APTT 31.7 Sodium 139 Potassium 4.0 Chloride 104 Carbon Dioxide 30 Anion Gap 9.0 BUN 7 Creatinine 0.82 Estimated Creat Clear 79 Estimated GFR 71 Est GFR ( Amer) 86 Glucose 92 Calcium 9.0 Total Bilirubin 0.3 AST 14 L ALT 19 Alkaline Phosphatase 109 Total Protein 7.6 Albumin 3.7 Globulin 3.9 H Albumin/Globulin Ratio 0.9 L Lipase Urine Color Yellow Urine Appearance Clear Urine pH 6.0 Ur Specific [place] 1.010 Urine Protein Negative Urine Glucose (UA) Negative Urine Ketones Negative Urine Blood Trace-i Urine Nitrate Negative Urine Bilirubin Negative Urine Urobilinogen 0.2 Ur Leukocyte Esterase Negative Urine RBC Occasional Urine WBC Occasional Ur Squamous Epith Cells 3-5 Urine Bacteria 1+ Urine Mucus 1+ Stool Occult Blood Stl Aeromonas (PCR) Stl C. cayetanensis PCR Stool Rotavirus (PCR) Stl Adenov F PCR Stool Astrovirus (PCR) Stool Campylobacter PCR Stl C.difficile Tox PCR Stool Cryptosporidium PCR Stl E.coli Shiga Tox PCR Stool E coli O157 PCR Stl Enterotoxigenic E PCR Stool EPEC (PCR) Stool EAEC (PCR) Stl E. histolytica PCR Stool Giardia Lamblia PCR Stool Salmonella PCR Stool Sapovirus (PCR) Stl P. shigelloides PCR Stl Shigella/EIEC PCR St Y.enterocolitica PCR Stool Vibrio (PCR) Stl Vibrio cholerae PCR Stl Norovirus GI/GII PCR 02/25/19 17:10 WBC 7.1 RBC 4.93 Hgb 14.7 Hct 45.6 MCV 92.4 MCH 29.9 MCHC 32.3 RDW 13.5 Plt Count 256 MPV 8.3 Neut % (Auto) 57.4 Lymph % (Auto) 33.8 [place] % (Auto) 7.2 Eos % (Auto) 1.1 Baso % (Auto) 0.4 Neut # (Auto) 4.1 Lymph # (Auto) 2.4 [place] # (Auto) 0.5 Eos # (Auto) 0.1 Baso # (Auto) 0.0 Total Counted Neutrophils % (Manual) Band Neutrophils % Lymphocytes % (Manual) Platelet Estimate RBC Morphology PT INR APTT Sodium Potassium Chloride Carbon Dioxide Anion Gap BUN Creatinine Estimated Creat Clear Estimated GFR Est GFR ( Amer) Glucose Calcium Total Bilirubin AST ALT Alkaline Phosphatase Total Protein Albumin Globulin Albumin/Globulin Ratio Lipase Urine Color Urine Appearance Urine pH Ur Specific [place] Urine Protein Urine Glucose (UA) Urine Ketones Urine Blood Urine Nitrate Urine Bilirubin Urine Urobilinogen Ur Leukocyte Esterase Urine RBC Urine WBC Ur Squamous Epith Cells Urine Bacteria Urine Mucus Stool Occult Blood Stl Aeromonas (PCR) Stl C. cayetanensis PCR Stool Rotavirus (PCR) Stl Adenov F PCR Stool Astrovirus (PCR) Stool Campylobacter PCR Stl C.difficile Tox PCR Stool Cryptosporidium PCR Stl E.coli Shiga Tox PCR Stool E coli O157 PCR Stl Enterotoxigenic E PCR Stool EPEC (PCR) Stool EAEC (PCR) Stl E. histolytica PCR Stool Giardia Lamblia PCR Stool Salmonella PCR Stool Sapovirus (PCR) Stl P. shigelloides PCR Stl Shigella/EIEC PCR St Y.enterocolitica PCR Stool Vibrio (PCR) Stl Vibrio cholerae PCR Stl Norovirus GI/GII PCR DS: Diagnosis - Discharge Diagnosis (1) Colitis Status: Acute Discharge Plan - Patient Discharge Instructions ACTIVITY: Continue current activity DIET: continue same diet Patient Instructions: DI for Abdominal Pain-Adult, DI for Colitis - Follow up Plan Follow up with: Jluis Marie MD [Primary Care Provider] - 2 days Home Medications: Home Medications Medication Instructions Recorded Confirmed Type atorvastatin 80 mg tablet 80 mg PO HS 30 Days #30 tab 08/16/18 02/26/19 History citalopram 40 mg tablet 40 mg PO HS 30 Days #30 tab 08/16/18 02/26/19 History fluticasone furoate 100 1 puff INHALATION BID PRN 30 Days 08/16/18 02/26/19 History mcg-vilanterol 25 mcg/dose #60 each inhalation powder lisinopril 20 20 - 25 mg PO HS 30 Days #30 tab 08/16/18 02/26/19 History mg-hydrochlorothiazide 25 mg tablet metoprolol succinate ER 100 mg 100 mg PO HS 30 Days #30 tab 08/16/18 02/26/19 History tablet,extended release 24 hr omeprazole 40 mg capsule,delayed 40 mg PO HS 30 Days #30 cap 08/16/18 02/26/19 History release Albuterol Sulfate [Albuterol HFA 2 puffs IH Q4HP PRN 02/26/19 02/26/19 History Inhaler] Cetirizine HCl 10 mg PO HS PRN 02/26/19 02/26/19 History Ciprofloxacin HCl [Cipro 500mg 500 mg PO BID #20 tab 02/26/19 Rx Tab] Fluticasone Propionate 2 spry NOSTRIL-B DAILY PRN 02/26/19 02/26/19 History Levocetirizine Dihydrochloride 5 mg PO HS PRN 02/26/19 02/26/19 History Montelukast Sodium [Montelukast 10 mg PO HS PRN 02/26/19 02/26/19 History 10mg Tab] Sennosides [Vicki-Benita] 2 tab PO HS PRN 02/26/19 02/26/19 History Triamcinolone Acetonide 1 applicatio TP BID 10/27/19 10/27/19 History diphenhydrAMINE HCl [Benadryl 25 mg PO NEEDED PRN 02/26/19 02/26/19 History Allergy] metroNIDAZOLE [metroNIDAZOLE 500mg 500 mg PO TID #30 tab 02/26/19 Rx Tablet] raNITIdine HCl [Ranitidine HCl] 150 mg PO DAILY 02/26/19 02/26/19 History Prescriptions/Medication Reconciliation: New Ciprofloxacin HCl [Cipro 500mg Tab] 500 mg PO BID #20 tab metroNIDAZOLE [metroNIDAZOLE 500mg Tablet] 500 mg PO TID #30 tab Continued lisinopril 20 mg-hydrochlorothiazide 25 mg tablet 20 - 25 mg PO HS 30 Days #30 tab omeprazole 40 mg capsule,delayed release 40 mg PO HS 30 Days #30 cap metoprolol succinate ER 100 mg tablet,extended release 24 hr 100 mg PO HS 30 Days #30 tab atorvastatin 80 mg tablet 80 mg PO HS 30 Days #30 tab fluticasone furoate 100 mcg-vilanterol 25 mcg/dose inhalation powder 1 puff INHALATION BID PRN 30 Days #60 each PRN Reason: BREATHING citalopram 40 mg tablet 40 mg PO HS 30 Days #30 tab Triamcinolone Acetonide 1 applicatio TP BID Levocetirizine Dihydrochloride 5 mg PO HS PRN PRN Reason: ALLERGIES Sennosides [Vicki-Benita] 2 tab PO HS PRN PRN Reason: BOWELS Fluticasone Propionate 2 spry NOSTRIL-B DAILY PRN PRN Reason: ALLERGIES Cetirizine HCl 10 mg PO HS PRN PRN Reason: ALLERGIES Albuterol Sulfate [Albuterol HFA Inhaler] 2 puffs IH Q4HP PRN PRN Reason: Shortness Of Breath Or Wheezing diphenhydrAMINE HCl [Benadryl Allergy] 25 mg PO NEEDED PRN PRN Reason: ALLERGIES raNITIdine HCl [Ranitidine HCl] 150 mg PO DAILY Montelukast Sodium [Montelukast 10mg Tab] 10 mg PO HS PRN PRN Reason: ALLERGIES - Problem Reconciliation Problems Reviewed?: Yes
== END 2019-02-26 16:00 | disposition home or self-care (01) ==
LOC: 2ND 16:25 → ER 16:25 → 2ND 21:01
PROVIDERS: ADMIT Family Medicine; ATTEND Internal Medicine Adolescent Medicine
CPT/HCPCS: 36415; 74177; 80048; 80053; 81001; 82272; 83690; 85007; 85025; 85610; 85730; 87506; 90686; 96365; 99284; G0328; G0378; J1956

== ENCOUNTER → 2019-05-15 14:25 | Outpatient (POV) | payer MEDICAID, SELFPAY | PROVIDERS: Visit Provider Nurse Practitioner Family | DX: Z00.00 Encounter for general adult medical examination without abnormal findings (principal) ==

== ENCOUNTER → 2019-05-23 10:17 | Outpatient (CLI) | payer OTHER, SELFPAY ==
[2019-05-23 10:37] LABS: Basophils % 0.4 % (0.1-2.0); Eosinophils # 0.1 K/mm3 (0.0-0.4); Eosinophils % 2.1 % (0.1-12.0); Hematocrit 43.5 % (37.0-47.0); Hemoglobin 13.8 g/dL (12.2-16.2); Lymphocytes # 2.1 K/mm3 (0.7-4.5); Mean Corpuscular HGB Conc 31.6 g/dL (31.8-35.4); Mean Corpuscular Volume 91.8 fl (81-99); Mean Platelet Volume 7.3 fl (7.4-10.4); Monocytes # 0.4 K/mm3 (0.1-1.0); Monocytes % 5.7 % (1.7-9.3); Neutrophils # 4.3 K/mm3 (1.8-7.8); Neutrophils % 61.8 % (37.0-80.0); Platelet Count 317 K/mm3 (142-424); Red Blood Count 4.74 M/mm3 (4.20-5.40); Red Cell Distribution Width 13.3 % (11.5-17.5); White Blood Count 6.9 K/mm3 (4.8-10.8)
[2019-05-23 11:24] LABS: Alanine Aminotransferase 12 U/L (12-78); Albumin Level 3.4 gm/dL (3.4-5.0); Alkaline Phosphatase 128 U/L (46-116); Anion Gap 16.2 mEq/L (5-15); Aspartate Amino Transferase 9 U/L (15-37); Bilirubin,Total 0.4 mg/dL (0.2-1.0); Blood Urea Nitrogen 9 mg/dL (7-18); Calcium 9.2 mg/dL (8.5-10.1); Carbon Dioxide 28 mmol/L (21.0-32.0); Chloride 102 mmol/L (98-107); Creatinine,Serum 0.85 mg/dL (0.55-1.02); Estimated Glomerular Filt Rate 68 ml/min (>60); GFR (African American) 83 ML/MIN (>60); Globulin 3.4 gm/dl (1.3-3.2); Glucose 88 mg/dL (74-106); Potassium 4.2 mmoL/L (3.5-5.1); Sodium 142 mmol/L (136-145); Total Protein,Serum 6.8 gm/dL (6.4-8.2)
--- NOTE | 2019-05-23 11:30 | CT_ITS ---
PROCEDURE: CT ABDOMEN PELVIS W CON CLINICAL INDICATION: BLOATING,ALTERED BOWEL FUNCTION,CONSTIPATION,ABD PAIN,GERD COMPARISON: CT ABDOMEN PELVIS W CON from 02/25/2019 TECHNIQUE: IV Contrast: 75ML OPTIRAY 350 Oral Contrast 20ml Gastroview Axial images obtained with sagittal and coronal reformats. All CT scans at the facility use one or more dose reduction, viz: automated exposure control, ma/kV adjustment per patient size (including targeted exams where dose is matched to indication, i.e. head), or iterative reconstruction technique. FINDINGS: LOWER THORAX: There is a small hiatal hernia. ABDOMEN & PELVIS: There is mild fatty infiltration of the liver without a focal lesion. The liver, spleen, pancreas, adrenal glands, and kidneys show no acute finding. No intestinal obstruction or free air. No evidence of appendicitis or diverticulitis. No pelvic mass, abnormal fluid collection, or focal inflammatory change of the pelvis. No acute bony anomalies. IMPRESSION: No acute findings. Dictated by: Joselito Vidal 05/23/2019 14:36 Electronically signed by Joselito Vidal in [facility] 05/23/2019 14:36
== END ==
PROVIDERS: Referring Provider Nurse Practitioner Family; Visit Provider Nurse Practitioner Family
DX: R14.0 Abdominal distension (gaseous) (principal); R19.4 Change in bowel habit; K59.00 Constipation, unspecified; R10.32 Left lower quadrant pain; K21.9 Gastro-esophageal reflux disease without esophagitis
CPT/HCPCS: 36415; 74177; 80053; 85025; Q9967

== ENCOUNTER → 2019-09-26 09:16 | Outpatient (CLI) | payer OTHER, SELFPAY ==
--- NOTE | 2019-09-26 09:25 | MM_ITS ---
PROCEDURE: MM DIG SCREENING MAMM BI W/CAD Digital Breast Tomosynthesis Included CLINICAL INDICATION: SCREENING There is no personal or family history of breast cancer. COMPARISON: [id number] DIG MAMM-DX UNIL ADD VIEWS-RT from 07/15/2012 [facility] DIG MAMM-SCREEN ROD from 08/02/2013 [facility] MM Dig screening mamm BI w/CAD from 07/12/2018 TECHNIQUE: Standard CC and MLO images and 3D Tomosynthesis was obtained. R2 CAD reviewed. FINDINGS: The breasts are composed primarily of fat with minimal scattered fibroglandular densities in each breast. There is a stable round benign-appearing nodular density lower right breast 6 o'clock position which has been shown to be cystic on previous ultrasound exams. It is stable and unchanged from previous exams. There are additional tiny benign-appearing nodular densities right breast which are stable. There is no suspicious lesion and no suspicious microcalcifications. IMPRESSION: Fatty type breast parenchyma with no suspicious lesions seen BI-RAD Category: 2 Benign Finding(s) FOLLOW-UP: 1YR 1 Year Follow-up (A letter has been sent to the patient regarding results of the study.) Dictated by: Dr. Rojas Moore MD 09/27/2019 17:[address] Rojas Moore MD in [facility] 09/27/2019 17:15
== END ==
PROVIDERS: PCP Internal Medicine Adolescent Medicine; Visit Provider Internal Medicine Adolescent Medicine
DX: Z12.31 Encounter for screening mammogram for malignant neoplasm of breast (principal)
CPT/HCPCS: 77063; 77067

== ENCOUNTER → 2020-08-14 09:38 | Outpatient (CLI) | payer OTHER, SELFPAY ==
[2020-08-14 10:35] VITALS: PULSE 89; PULSE 92
--- NOTE | 2020-08-14 13:48 | CT_ITS ---
PROCEDURE: CT LUNG SCREENING CLINICAL INDICATION: LDCT Current smoker 90 pack year smoking history Copd, emphysema No prior COMPARISON: MG MM DIG SCREENING MAMM BI W/CAD from 09/26/2019 TECHNIQUE: The exam was performed on a GE Shoot Extreme Speed [address] scanner using 2.90 mGy CTDI. A low dose helical CT CHEST was performed on a multi-detector scanner. All CT scans at the facility use one or more dose reduction, viz: automated exposure control, ma/kV adjustment per patient size (including targeted exams where dose is matched to indication, i.e. head), or iterative reconstruction technique. The LDCT was performed in a facility that meets the criteria for the screening program. Data regarding this exam was submitted to ACR which is an approved registry. The order for this exam indicates that it came as a result of a lung cancer screening counseling shard decision-making visit that included all the elements required of such a visit including smoking cessation. The radiologist interpreting this exam meets the CMS criteria for the LDCT lung cancer screening program. The exam is reported using the Lung-RADS classification scale and reported to the ACR registry. NOTE: This study was performed for the specific purposes of lung cancer screening and is not an alternative to diagnostic chest CT. RADIATION DOSE: CTDI vol(CT dose Index-volume) = 2.90mG DLP (Dose Length Product) = 94.03 mGcm FINDINGS: COPD changes. Mild bronchial thickening. No suspicious nodules identified.. There is minimal focal area protrusion along the aortic arch on the left series 3, image 20-22. Small hiatal hernia.. There is a 8 mm nodule along the inferior aspect of the right breast. This has been described on previous mammogram of 09/26/2019 and had a benign appearance.. Minimal wedge contour of T10 and T6 age indeterminate. IMPRESSION: Lung-RADS Category 1 Negative Follow-up: Continue annual screening with LDCT in 12 months Consider six-month CTA chest to confirm stability of the minimal protrusion of the thoracic aorta Dictated by: Bryce Rodríguez MD 08/26/2020 10:15 Bryce Rodríguez MD in [facility] 08/26/2020 10:15
== END ==
PROVIDERS: PCP Internal Medicine Adolescent Medicine; Visit Provider Internal Medicine Pulmonary Disease
DX: Z87.891 Personal history of nicotine dependence (principal); Z12.2 Encounter for screening for malignant neoplasm of respiratory organs; J44.9 Chronic obstructive pulmonary disease, unspecified
CPT/HCPCS: 71271; 94060; 94618; 94640; 94727; 94729

== ENCOUNTER → 2022-02-19 09:05 | Outpatient (CLI) | payer OTHER, SELFPAY ==
--- NOTE | 2022-02-19 09:13 | MM_ITS ---
PROCEDURE INFORMATION: Exam: MG Bilateral Screening 3D Mammography Exam date and time: 02/19/2022 9:49 AM Age: 61 years old Clinical indication: Screening examination TECHNIQUE: Imaging protocol: Bilateral Screening tomosynthesis and 2D mammography including computer-aided detection (CAD) when performed. COMPARISON: 1. MG MM DIG SCREENING MAMM BI W/CAD 09/26/2019 10:20 AM 2. MG [facility] MM Dig screening mamm BI w/CAD 07/12/2018 11:07 AM FINDINGS: MAMMOGRAPHY: Breast composition: There are scattered areas of fibroglandular density. Mass: 0.6 cm mass in the middle third of the right upper outer quadrant. The finding may represent a benign lymph node Architectural distortion: None. Calcifications: No suspicious calcifications. Asymmetric density: None. Skin thickening: None. Axillary adenopathy: None. IMPRESSION: Patient to be recalled for right breast ultrasound for further evaluation of a right breast mass. ASSESSMENT: BI-RADS Category 0: Incomplete- Need Additional Imaging Evaluation and/or Prior Mammograms for Comparison
== END ==
PROVIDERS: PCP Internal Medicine Adolescent Medicine; Visit Provider Nurse Practitioner Family
DX: Z12.31 Encounter for screening mammogram for malignant neoplasm of breast (principal)
CPT/HCPCS: 77063; 77067

== ENCOUNTER → 2022-03-13 14:33 | Outpatient (CLI) | payer OTHER, SELFPAY ==
--- NOTE | 2022-03-13 14:40 | US_ITS ---
PROCEDURE INFORMATION: Exam: US Right Breast, Complete Exam date and time: 03/13/2022 3:09 PM Age: 61 years old Clinical indication: Recall on the basis of screening mammogram 02/19/2022 for sonographic evaluation of 0.6 cm mass in the middle 3rd of the right upper outer quadrant. TECHNIQUE: Imaging protocol: Complete ultrasound of all four quadrants of the Right breast and the retroareolar regions, including ultrasound of the axilla when performed. COMPARISON: MG MM DIG SCREENING MAMM BI W/CAD 02/19/2022 9:49 AM FINDINGS: Breast: Right sonography, all 4 quadrants, retroareolar and axilla. In the upper outer quadrant, at 10 o'clock 7 cm from the nipple, simple cyst measuring 0.6 x 0.4 x 0.4 cm and at 11 o'clock 5 cm from the nipple, two clusters of cysts measuring 0.4 x 0.3 by 0.4 cm and 0.6 x 0.3 cm - 1 of these likely corresponds to the mammographic mass. At 7 o'clock 3 cm from the nipple, cluster of cysts measuring 0.4 x 0.5 x 0.3 cm. At 6 o'clock 2 cm from the nipple, probable complicated cyst with low-level echoes measuring 0 0.6 x 0.6 x 0.5 cm. Mildly ectatic retroareolar ducts. Sonographically unremarkable right axillary lymph node. IMPRESSION: Probably benign cystic changes, suggest six-month follow-up right diagnostic mammogram and targeted right sonography at 11, 7, and 6 o'clock, unless otherwise clinically indicated. Assessment: BI-RADS Category 3: Probably benign
== END ==
PROVIDERS: PCP Internal Medicine Adolescent Medicine; Visit Provider Nurse Practitioner Family
DX: R92.8 Other abnormal and inconclusive findings on diagnostic imaging of breast (principal)
CPT/HCPCS: 76641

== ENCOUNTER → 2022-07-29 12:59 | Outpatient (CLI) | payer OTHER, SELFPAY ==
--- NOTE | 2022-07-29 13:59 | CT_ITS ---
FINAL REPORT CLINICAL HISTORY: lung cancer screening, smoker for 45 years, smoker 2 packs per day up until 1 year ago and now smokes 1 cig a day COMPARISON: 08/14/2020 FINDINGS: Low-Dose Chest CT Axial images were obtained from the lung apex to the mid abdomen by computed tomography. Low-dose protocol was utilized. CTDI vol (mGy): 2.90 DLP (mGy-cm): 96.30 a There is no axillary adenopathy. There is no hilar or mediastinal adenopathy. The heart is proper size. There is no pericardial or pleural effusion. Lung window images demonstrate granulomatous disease. The lungs are otherwise clear. A small right breast nodule is unchanged. Limited images of the upper abdomen are unremarkable. IMPRESSION: Lung RADS category 1. Recommend 12 month follow-up low-dose chest CT. Reviewed, Interpreted and Dictated by Tiara Francois MD Transcribed by Vida Curtis Authenticated and [facility]
== END ==
PROVIDERS: PCP Internal Medicine Adolescent Medicine; Visit Provider Internal Medicine Pulmonary Disease
DX: Z87.891 Personal history of nicotine dependence (principal); Z12.2 Encounter for screening for malignant neoplasm of respiratory organs; R06.09 Other forms of dyspnea
CPT/HCPCS: 71271; 94060; 94618

== ENCOUNTER → 2022-08-26 14:07 | Outpatient (CLI) | payer OTHER, SELFPAY ==
--- NOTE | 2022-08-26 14:18 | MM_ITS ---
PROCEDURE INFORMATION: Exam: US Right Breast, Complete MG Right Diagnostic Breast Tomosynthesis Exam date and time: 08/26/2022 2:06 PM Age: 62 years old Clinical indication: Short-term radiographic followup; Right breast; probable cystic change TECHNIQUE: Imaging protocol: Complete ultrasound of all four quadrants of the right breast and the retroareolar regions, including ultrasound of the axilla when performed. Right Diagnostic tomosynthesis and 2D mammography including computer-aided detection (CAD) when performed. Unilateral or bilateral exam. COMPARISON: 1. MG MM DIG SCREENING MAMM BI W/CAD 02/19/2022 9:49 AM 2. MG MM DIG SCREENING MAMM BI W/CAD 09/26/2019 10:20 AM FINDINGS: MAMMOGRAPHY: The breast tissue is composed of scattered areas of fibroglandular density. There is no stellate mass, architectural distortion or suspicious microcalcifications to suggest malignancy. No skin thickening or axillary adenopathy. ULTRASOUND: Sonographic images of the right breast demonstrate few scattered subcentimeter benign cysts. No solid masses. No architectural distortion or acoustical shadowing. Specifically, the 0.6 cm mass in the right upper outer quadrant corresponds to benign cystic change sonographically. No axillary adenopathy IMPRESSION: No mammographic or sonographic evidence of malignancy. Annual bilateral mammographic screening is recommended in March 2023 unless otherwise clinically indicated. ASSESSMENT: BI-RADS Category 2: Benign
== END ==
PROVIDERS: PCP Internal Medicine Adolescent Medicine; Visit Provider Nurse Practitioner Family
DX: R92.8 Other abnormal and inconclusive findings on diagnostic imaging of breast (principal)
CPT/HCPCS: 76641; 77061; 77065; G0279

== ENCOUNTER → 2023-03-08 12:30 | Outpatient (CLI) | payer OTHER, SELFPAY ==
--- NOTE | 2023-03-08 12:38 | MM_ITS ---
PROCEDURE INFORMATION: Exam: MG Bilateral Screening 3D Mammography Exam date and time: 03/08/2023 12:51 PM Age: 62 years old Clinical indication: Screening mammogram. No personal or family history of breast cancer TECHNIQUE: Imaging protocol: Bilateral Screening tomosynthesis and 2D mammography including computer-aided detection (CAD) when performed. COMPARISON: 1. MG MM DIG MAMM DX UNILAT RT CAD 08/26/2022 2:06 PM 2. MG MM DIG SCREENING MAMM BI W/CAD 02/19/2022 9:49 AM 3. MG MM DIG SCREENING MAMM BI W/CAD 09/26/2019 10:20 AM 4. MG [facility] MM Dig screening mamm BI w/CAD 07/12/2018 11:07 AM FINDINGS: MAMMOGRAPHY: Breast composition: There are scattered areas of fibroglandular density. Mass: Stable benign-appearing subcentimeter nodules are present in the right breast. No new or morphologically suspicious nodule has developed to suggest malignancy. Architectural distortion: No new or suspicious architectural distortion. Calcifications: No new or suspicious calcifications are present Asymmetric density: No new or suspicious asymmetric density is present Skin thickening: None. Axillary adenopathy: None. IMPRESSION: No mammographic evidence of malignancy. Recommend annual screening mammography unless otherwise clinically indicated. ASSESSMENT: BI-RADS category 2: Benign
== END ==
PROVIDERS: PCP Internal Medicine Adolescent Medicine; Visit Provider Internal Medicine Adolescent Medicine
DX: Z12.31 Encounter for screening mammogram for malignant neoplasm of breast (principal)
CPT/HCPCS: 77063; 77067

== ENCOUNTER 2023-06-14 14:09 | Emergency (ER) | payer OTHER, SELFPAY ==
[2023-06-14 15:20] VITALS: BP 180/92; PULSE 109; RESP 25; TEMP 36.6; O2SAT 94; BMI 20.2
--- NOTE | 2023-06-14 16:06 | ED_ITS ---
Discharge Plan Disposition Patient Disposition: Home, Self-Care Condition: Good Prescriptions Prescriptions: New azithromycin [Zithromax Z-Brian] 250 mg tablet See Rx Instructions .ROUTE .COMPLEX 5 Days Qty: 6 0RF Rx Instructions: For 250 mg dose pack: take 500 mg today (day 1), then 250 mg for 4 days (days 2-5) prednisone [prednisone] 20 mg tablet 20 mg PO BID 5 Days Qty: 10 0RF guaifenesin [Mucinex] 600 mg tablet extended release 12hr 600 mg PO BID PRN (Reason: cough) Qty: 20 0RF No Action lisinopril-hydrochlorothiazide 20-25 mg tablet 20 - 25 mg PO HS 30 Days Qty: 30 citalopram 40 mg tablet 40 mg PO HS 30 Days Qty: 30 metoprolol succinate 100 mg tablet extended release 24 hr 100 mg PO HS 30 Days Qty: 30 atorvastatin 80 mg tablet 80 mg PO HS 30 Days Qty: 30 umeclidinium 62.5 mcg/actuation blister with device INHALATION pantoprazole 40 mg tablet,delayed release (DR/EC) PO albuterol sulfate 90 mcg/actuation HFA aerosol inhaler 1 inh INHALATION QID PRN (Reason: shortness of breath or wheezing) Qty: 8.5 12RF Spiriva with HandiHaler 18 mcg capsule, w/inhalation device 1 cap inhalation DAILY 90 Days Qty: 90 3RF Rx Instructions: puncture 1 cap using device; one dose = 2 inhalations albuterol sulfate 90 mcg/actuation HFA aerosol inhaler See Rx Instructions .ROUTE .COMPLEX Qty: 8.5 0RF Dose Instruction: INHALE 2 PUFFS BY MOUTH FOUR TIMES A DAY NEEDED FOR SHORTNESS OF BREATH OR WHEEZING Rx Instructions: INHALE 2 PUFFS BY MOUTH FOUR TIMES A DAY NEEDED FOR SHORTNESS OF BREATH OR WHEEZING fluticasone furoate-vilanterol [Breo Ellipta] 100-25 mcg/dose blister with device See Rx Instructions .ROUTE .COMPLEX Qty: 60 0RF Dose Instruction: INHALE 1 PUFF BY MOUTH ONCE ADAY Rx Instructions: INHALE 1 PUFF BY MOUTH ONCE ADAY diphenhydramine HCl 25 MG tablet 25 mg PO NEEDED PRN (Reason: ALLERGIES) montelukast 10 MG tablet 10 mg PO HS PRN (Reason: ALLERGIES) fluticasone propionate 50 spray,suspension 2 spry NOSTRIL-B DAILY PRN (Reason: ALLERGIES) levocetirizine 5 MG tablet 5 mg PO HS PRN (Reason: ALLERGIES) Referrals Follow up/Referrals: Jluis Marie MD [Primary Care Provider] - See instructions Activity Restrictions/Add. Instructions Additional Instructions/Restrictions: * Start antibiotic today. Be sure to complete entire prescription even if feeling better * Monitor temp. Tylenol every 4 hours as needed and / or ibuprofen every 6 hours as needed ( As long as your primary care physician has told you that it ok to take both. For fever/aches/pains ER if no less than 101 despite Tylenol or Motrin * Humidifier/vaporizer or hot steamy shower * Inhaler every 4-6 hours as needed like we discussed. If unsure how to use it, ask pharmacist to demonstrate how. Should help open airways and improve cough, wheezing, and shortness of breath * Mucinex for your cough Be sure to drink lots of water. *Start steroid today. Helps with inflammation therefore, cough and wheezing. Follow directions on the package. Reviewed side effects. Patient reports taking them before. Follow up IMMEDIATELY for new or worsening of symptoms OR no noticeable improvement over the next 48-72 hours. 911 immediately for any life threatening symptoms such as chest pain or difficulty breathing Clinical Impressions Clinical Impression: Bronchitis Sinusitis Qualifiers: Sinusitis location: unspecified location Chronicity: unspecified Qualified Code(s): J32.9 - Chronic sinusitis, unspecified Instructions Patient Instructions: DI for Sinusitis, Sinusitis, Acute Bronchitis Discharge ED Provider: Vero Shoemaker [facility] General Stated complaint: cough congestion Mode of Arrival: Ambulatory Source of Information: Patient Limitations: No Limitations Time Seen by Provider: 06/14/23 16:06 Description of Symptoms (Recalled from Triage Doc. by RN): PATIENT C/O COUGH, CONGESTION, AND VOMITING THAT STARTED A WEEK AGO HEENT Symptoms (Recalled from RN notes): No Resp Symptoms (Recalled from RN notes): Yes Skin Symptoms (Recalled from RN notes): No MS Symptoms (Recalled from RN notes): No Functional Status (Recalled from RN notes): WNL History of Present Illness Provider Complaint: Patient states that for over a week she has been having sinu s congestion, pressure and drainage along with cough and at times she will cough so hard she vomits States that today she was not feeling any better and blew some bloody mucous from her nose so she came in to get checked States that she has a hx of COPD Related Data Home Medications Medication Instructions Recorded Confirmed atorvastatin 80 mg tablet 80 mg PO HS Cholesterol 30 days 08/16/18 03/10/23 #30 tabs citalopram 40 mg tablet 40 mg PO HS Anxiety 30 days #30 08/16/18 03/10/23 tabs lisinopril 20 20 - 25 mg PO HS High blood 08/16/18 03/10/23 mg-hydrochlorothiazide 25 mg tablet pressure 30 days #30 tabs metoprolol succinate 100 mg 100 mg PO HS High blood pressure 08/16/18 03/10/23 tablet,extended release 24 hr 30 days #30 tabs diphenhydramine HCl 25 mg tablet 25 mg PO NEEDED PRN ALLERGIES 02/26/19 03/10/23 fluticasone propionate 50 2 spry NOSTRIL-B DAILY PRN 02/26/19 03/10/23 mcg/actuation nasal ALLERGIES spray,suspension levocetirizine 5 mg tablet 5 mg PO HS PRN ALLERGIES 02/26/19 03/10/23 montelukast 10 mg tablet 10 mg PO HS PRN ALLERGIES 02/26/19 03/10/23 pantoprazole 40 mg tablet,delayed mg PO 06/26/20 03/10/23 release umeclidinium 62.5 mcg/actuation inhalation 06/26/20 03/10/23 blister powder for inhalation Previous Rx's Medication Instructions Recorded albuterol sulfate 90 mcg/actuation 1 inh inhalation QID PRN shortness 08/26/20 aerosol inhaler of breath or wheezing #8.5 grams tiotropium bromide 18 mcg capsule 1 cap inhalation DAILY 90 days #90 09/03/22 with inhalation device (Spiriva puffs with HandiHaler) albuterol sulfate 90 mcg/actuation See Rx Instructions .Route 04/29/23 aerosol inhaler .COMPLEX #8.5 grams fluticasone furoate 100 See Rx Instructions .Route 05/31/23 mcg-vilanterol 25 mcg/dose .COMPLEX #60 blisters inhalation powder (Breo Ellipta) azithromycin 250 mg tablet See Rx Instructions PO .COMPLEX 5 06/14/23 (Zithromax Z-Brian) days #6 tabs guaifenesin 600 mg tablet, 600 mg PO BID PRN cough #20 tabs 06/14/23 extended release 12 hr (Mucinex) prednisone 20 mg tablet 20 mg PO BID 5 days #10 tabs 06/14/23 Allergies Allergy/AdvReac Type Severity Reaction Status Date / Time No Known Allergies Allergy Verified 03/10/23 14:45 Worker's Comp Is this a Worker's Comp case?: No [facility] Disclaimer: The information contained in this section may have been updated after the patient was seen, as this information can be updated by other users. Medical History (Updated 06/14/23 @ 16:17 by Vero Shoemaker APRN) COPD (chronic obstructive pulmonary disease) Dyspnea on exertion Dyspnea on exertion Screening for lung cancer Smoking greater than 30 pack years Tobacco abuse counseling Tobacco abuse disorder Surgical History History of colonoscopy History of total hysterectomy Family History Other No significant family history Social History Smoking Status: Current every day smoker tobacco type: cigarettes packs per day: 1 alcohol intake: never current occupational status: other Travel in the last 8 weeks: None ROS Obtained: Yes All systems reviewed & no additional complaints except as documented and Yes Systems reviewed as appropriate & no additional complaints except as documented Constitutional Constitutional: Reports system reviewed and no additional complaints, except as documented and Reports as per HPI ENT Ears, Nose, Mouth, and Throat: Reports system reviewed and no additional complaints, except as documented, Reports as per HPI, Reports sinus pain and Reports sinus pressure Cardiovascular Cardiovascular: Reports system reviewed and no additional complaints, except as documented and Reports as per HPI Respiratory Respiratory: Reports system reviewed and no additional complaints, except as documented, Reports as per HPI, Denies shortness of breath and Reports cough Gastrointestinal Gastrointestingal: Reports system reviewed and no additional complaints, except as documented, as per HPI, nausea and vomiting Genitourinary Female Genitourinary: Reports system reviewed and no additional complaints, except as documented and Reports as per HPI Physical Exam General General appearance: alert and in no apparent distress ENT ENT exam: Present mucous membranes moist Expanded ENT Exam Nose exam: Present sinus tenderness Throat exam: Present other (Pharyngeal erythema noted with PND) Respiratory Respiratory exam: Present normal lung sounds bilaterally; Absent respiratory distress or wheezes Cardiovascular Cardiovascular exam: Present regular rate, normal rhythm and tachycardia Neurological Exam Neurological exam: Present alert, oriented X3 and normal gait Medical Decision Making Rubio Inquiry Pt receiving controlled substance: No Rubio was queried for this patient: No Vital Signs: 06/14/23 15:20 Temperature 97.8 F Temperature Source Temporal Artery Scan Pulse Rate [Right Brachial] 109 H Respiratory Rate 25 H Blood Pressure [Right Arm] 180/92 H Blood Pressure Mean [Right Arm] 121 Blood Pressure Source [Right Arm] Automatic Cuff Blood Pressure Position [Right Arm] Sitting 02 Sat by Pulse Oximetry 94 L Oxygen Delivery Method Room Air Lab Data Lab results reviewed: Yes I reviewed the patient's lab results. Medical Decision Narrative: Spoke with patient about CXR and transfer to the ED and she declined willing to try azithromycin and prednisone since she has taken it in the past without complications or reactions Medication discussed with pharmacy
[2023-06-14 16:10] LABS: UTC Influenza A Antigen Negative (Negative); UTC Influenza B Antigen Negative (Negative)
[2023-06-14 16:18] VITALS: BP 180/92; PULSE 109; RESP 20; TEMP 36.6; O2SAT 94
== END 2023-06-14 16:30 | disposition home or self-care (01) ==
PROVIDERS: Emergency Provider Nurse Practitioner; PCP Internal Medicine Adolescent Medicine
DX: J20.9 Acute bronchitis, unspecified (principal); J01.90 Acute sinusitis, unspecified; R05.8 Other specified cough; R09.81 Nasal congestion; R09.82 Postnasal drip; F17.210 Nicotine dependence, cigarettes, uncomplicated; J44.9 Chronic obstructive pulmonary disease, unspecified
CPT/HCPCS: 87804; 99204; 99212; G0463

== ENCOUNTER 2023-06-20 11:48 | Emergency (ER) | payer OTHER, SELFPAY ==
[2023-06-20 11:49] VITALS: BP 165/108; PULSE 116; RESP 15; TEMP 36.7; O2SAT 97; BMI 21.4
[2023-06-20 12:08] LABS: Coronavirus 19, PCR Not Detected (NotDetected); Influenza A, PCR Not Detected (NotDetected); Influenza B, PCR Not Detected (NotDetected)
--- NOTE | 2023-06-20 12:10 | ED_ITS ---
Discharge Plan Disposition Patient Disposition: Home, Self-Care Prescriptions Prescriptions: New ondansetron 4 mg tablet,disintegrating 4 mg PO Q8H PRN (Reason: nausea and vomiting) 4 Days Qty: 12 0RF nystatin 100,000 unit/mL suspension 5 ml PO QID 10 Days Qty: 200 0RF Rx Instructions: swish and swallow No Action lisinopril-hydrochlorothiazide 20-25 mg tablet 20 - 25 mg PO HS 30 Days Qty: 30 citalopram 40 mg tablet 40 mg PO HS 30 Days Qty: 30 metoprolol succinate 100 mg tablet extended release 24 hr 100 mg PO HS 30 Days Qty: 30 atorvastatin 80 mg tablet 80 mg PO HS 30 Days Qty: 30 umeclidinium 62.5 mcg/actuation blister with device INHALATION pantoprazole 40 mg tablet,delayed release (DR/EC) PO albuterol sulfate 90 mcg/actuation HFA aerosol inhaler 1 inh INHALATION QID PRN (Reason: shortness of breath or wheezing) Qty: 8.5 12RF Spiriva with HandiHaler 18 mcg capsule, w/inhalation device 1 cap inhalation DAILY 90 Days Qty: 90 3RF Rx Instructions: puncture 1 cap using device; one dose = 2 inhalations albuterol sulfate 90 mcg/actuation HFA aerosol inhaler See Rx Instructions .ROUTE .COMPLEX Qty: 8.5 0RF Dose Instruction: INHALE 2 PUFFS BY MOUTH FOUR TIMES A DAY NEEDED FOR SHORTNESS OF BREATH OR WHEEZING Rx Instructions: INHALE 2 PUFFS BY MOUTH FOUR TIMES A DAY NEEDED FOR SHORTNESS OF BREATH OR WHEEZING fluticasone furoate-vilanterol [Breo Ellipta] 100-25 mcg/dose blister with device See Rx Instructions .ROUTE .COMPLEX Qty: 60 0RF Dose Instruction: INHALE 1 PUFF BY MOUTH ONCE ADAY Rx Instructions: INHALE 1 PUFF BY MOUTH ONCE ADAY diphenhydramine HCl 25 MG tablet 25 mg PO NEEDED PRN (Reason: ALLERGIES) montelukast 10 MG tablet 10 mg PO HS PRN (Reason: ALLERGIES) fluticasone propionate 50 spray,suspension 2 spry NOSTRIL-B DAILY PRN (Reason: ALLERGIES) levocetirizine 5 MG tablet 5 mg PO HS PRN (Reason: ALLERGIES) azithromycin [Zithromax Z-Brian] 250 mg tablet See Rx Instructions .ROUTE .COMPLEX 5 Days Qty: 6 0RF Rx Instructions: For 250 mg dose pack: take 500 mg today (day 1), then 250 mg for 4 days (days 2-5) prednisone [prednisone] 20 mg tablet 20 mg PO BID 5 Days Qty: 10 0RF guaifenesin [Mucinex] 600 mg tablet extended release 12hr 600 mg PO BID PRN (Reason: cough) Qty: 20 0RF Referrals Follow up/Referrals: Jlius Marie MD [Primary Care Provider] - See instructions Activity Restrictions/Add. Instructions Additional Instructions/Restrictions: At this time it was felt you are safe to be discharged home. If new or worsening symptoms please do not hesitate to return the emergency department. If symptoms persist please follow-up with your family doctor as you are able. Please take your medications as prescribed and try and drink is much as you are able. For pain please take Tylenol and ibuprofen every 6 hours over the next week as needed. When you use your steroid inhaler please brush your teeth and tongue after this resolves. Clinical Impressions Clinical Impression: Oral pharyngeal candidiasis Discharge ED Provider: Seth Honeycutt General Adult HPI General Chief complaint: PAIN Stated complaint: blisters in mouth, sore throat Time Seen by Provider: 06/20/23 11:50 Mode of Arrival: Ambulatory Source of Information: Patient Limitations: No Limitations Description of Symptoms (Recalled from ER Triage Doc. by RN): pt presents to ED with c/o sore throat and blisters on tongue. symptoms ongoing for 1 week. pt reports she was seen in [facility] and given medications, pt was unable to take them due to nauesa. History of Present Illness HPI narrative: Patient is a 63-year-old female with past medical history of COPD on inhaled corticosteroids who presents emergency department for evaluation of sore throat. Patient was seen in [facility] recently for evaluation of sore throat and was given azithromycin. She has had decreased p.o. intake secondary to pain with swallowing and painful lesions on her tongue causing her to present here for continued evaluation. No other acute complaints at this time. Related Data Home Medications Medication Instructions Recorded Confirmed atorvastatin 80 mg tablet 80 mg PO HS Cholesterol 30 days 08/16/18 03/10/23 #30 tabs citalopram 40 mg tablet 40 mg PO HS Anxiety 30 days #30 08/16/18 03/10/23 tabs lisinopril 20 20 - 25 mg PO HS High blood 08/16/18 03/10/23 mg-hydrochlorothiazide 25 mg tablet pressure 30 days #30 tabs metoprolol succinate 100 mg 100 mg PO HS High blood pressure 08/16/18 03/10/23 tablet,extended release 24 hr 30 days #30 tabs diphenhydramine HCl 25 mg tablet 25 mg PO NEEDED PRN ALLERGIES 02/26/19 03/10/23 fluticasone propionate 50 2 spry NOSTRIL-B DAILY PRN 02/26/19 03/10/23 mcg/actuation nasal ALLERGIES spray,suspension levocetirizine 5 mg tablet 5 mg PO HS PRN ALLERGIES 02/26/19 03/10/23 montelukast 10 mg tablet 10 mg PO HS PRN ALLERGIES 02/26/19 03/10/23 pantoprazole 40 mg tablet,delayed mg PO 06/26/20 03/10/23 release umeclidinium 62.5 mcg/actuation inhalation 06/26/20 03/10/23 blister powder for inhalation Previous Rx's Medication Instructions Recorded albuterol sulfate 90 mcg/actuation 1 inh inhalation QID PRN shortness 08/26/20 aerosol inhaler of breath or wheezing #8.5 grams tiotropium bromide 18 mcg capsule 1 cap inhalation DAILY 90 days #90 09/03/22 with inhalation device (Spiriva puffs with HandiHaler) albuterol sulfate 90 mcg/actuation See Rx Instructions .Route 04/29/23 aerosol inhaler .COMPLEX #8.5 grams fluticasone furoate 100 See Rx Instructions .Route 05/31/23 mcg-vilanterol 25 mcg/dose .COMPLEX #60 blisters inhalation powder (Breo Ellipta) azithromycin 250 mg tablet See Rx Instructions PO .COMPLEX 5 06/14/23 (Zithromax Z-Brian) days #6 tabs guaifenesin 600 mg tablet, 600 mg PO BID PRN cough #20 tabs 06/14/23 extended release 12 hr (Mucinex) prednisone 20 mg tablet 20 mg PO BID 5 days #10 tabs 06/14/23 nystatin 100,000 unit/mL oral 5 ml PO QID Thrush 10 days #200 mL 06/20/23 suspension ondansetron 4 mg disintegrating 4 mg PO Q8H PRN nausea and 06/20/23 tablet vomiting 4 days #12 tabs Allergies Allergy/AdvReac Type Severity Reaction Status Date / Time No Known Allergies Allergy Verified 03/10/23 14:45 [facility] Disclaimer: The information contained in this section may have been updated after the patient was seen, as this information can be updated by other users. Medical History (Updated 06/20/23 @ 13:05 by Seth Honeycutt MD) COPD (chronic obstructive pulmonary disease) Dyspnea on exertion Dyspnea on exertion Screening for lung cancer Smoking greater than 30 pack years Tobacco abuse counseling Tobacco abuse disorder Surgical History History of colonoscopy History of total hysterectomy Family History Other No significant family history Social History Smoking Status: Current every day smoker tobacco type: cigarettes packs per day: 1 alcohol intake: never current occupational status: other Travel in the last 8 weeks: None ROS Obtained: Yes Systems reviewed as appropriate & no additional complaints except as documented Physical Exam General General appearance: alert and in no apparent distress Head Head exam: atraumatic and normocephalic Eye Eye exam: Present PERRL ENT ENT exam: Present other (Scattered white lesions across the tongue that coalesce into plaques, are able to be scraped off. Erythematous posterior oropharynx, uvula midline) Neck Neck exam: Present normal inspection Chest Chest inspection: Present normal inspection and symmetric chest wall rise Respiratory Respiratory exam: Absent respiratory distress Cardiovascular Cardiovascular exam: Present regular rate and normal rhythm Abdominal Exam Abdominal exam: Present soft Extremities Exam Extremities exam: Present normal inspection Neurological Exam Neurological exam: Present alert Psychiatric Psychiatric exam: Present normal affect Skin Skin exam: Present warm and dry Medical Decision Making Rubio Inquiry Pt receiving controlled substance: No Vital Signs: 06/20/23 11:49 Temperature 98.0 F Temperature Source Oral Pulse Rate [Left Radial] 116 H Respiratory Rate 15 Blood Pressure [Right Arm] 165/108 H Blood Pressure Mean [Right Arm] 127 02 Sat by Pulse Oximetry 97 Oxygen Delivery Method Room Air Lab Data Lab Results 06/20/23 11:53: Group A Strep Rapid Negative 06/20/23 11:58: SARS-CoV-2 (PCR) Not detected, Influenza A Untype (PCR) Not detected, Influenza Type B (PCR) Not detected 06/20/23 12:15: WBC 7.8, RBC 4.79, Hgb 13.5, Hct 40.8, MCV 85.1, MCH 28.2, MCHC 33.1, RDW 14.3, Plt Count 284, MPV 7.0 L, Neut % (Auto) 70.4, Lymph % (Auto) 22.8, [place] % (Auto) 4.9, Eos % (Auto) 1.5, Baso % (Auto) 0.4, Neut # (Auto) 5.5, Lymph # (Auto) 1.8, [place] # (Auto) 0.4, Eos # (Auto) 0.1, Baso # (Auto) 0.0, Sodium 136, Potassium 3.4 L, Chloride 98, Carbon Dioxide 33 H, Anion Gap 8.4, BUN 7, Creatinine 0.80, Estimated Creat Clear 51, Estimated GFR 72, Est GFR ( Amer) 87, Glucose 108 H, Calcium 9.3, Total Bilirubin 0.5, AST 33, ALT 22, Alkaline Phosphatase 115, Total Protein 7.1, Albumin 3.8, Globulin 3.3 H, Albumin/Globulin Ratio 1.2 06/20/23 12:15 06/20/23 12:15 Orders (Tests/Meds): ED MEDICATIONS Generic Name Dose Route Start Last Admin Trade Name Freq PRN Reason Stop Dose Admin Lactated Ringer's 1,000 mls @ 999 mls/hr 06/20/23 12:09 06/20/23 12:27 Lactated Ringer's 1000 Ml Bag IV 06/20/23 13:09 999 mls/hr .Q1H1M ONE Administration Discontinued Medications Generic Name Dose Route Start Last Admin Trade Name Freq PRN Reason Stop Dose Admin Belladonna Alkaloids 60 ml 06/20/23 12:09 06/20/23 12:27 Belladonna Alkaloids 60 Ml Ml PO 06/20/23 12:10 60 ml ONCE ONE Administration Nystatin 500,000 unit 06/20/23 12:13 06/20/23 12:27 Nystatin Susp 500,000 Units/5ml Udc PO 06/20/23 12:14 500,000 unit ONCE ONE Administration ORDERS Category Date Time Status CBC w/Auto Diff [Complete Blood Count Auto Diff] Stat Lab 06/20/23 12:15 Completed CMP [Comprehensive Metabolic Panel] Stat Lab 06/20/23 12:15 Completed Rapid PCR Covid and Flu A/B Stat Lab 06/20/23 11:58 Completed Rapid Strep Scrn Group A [Strep Scrn Group A (Rapid)] Lab 06/20/23 11:53 Completed Stat Strep Screen Confirmation Stat Micro 06/20/23 11:53 Received Medical Decision Narrative: In summary patient is a 63-year-old female with past medical history described above who presents emergency department for evaluation of sore throat and odynophagia. Patient is hemodynamically stable nontoxic-appearing upon arrival, tachycardic heart rate 116. History and physical exam consistent with steroid- induced oropharyngeal candidiasis. Screening for COVID and strep pharyngitis will be conducted. Workup will be conducted with hematologic labs given over 1 week of decreased p.o. intake. Initial inventions include GI cocktail, oral nystatin suspension. Workup reviewed by me, hematologic labs are nonactionable. Upon repeat evaluation patient had partial resolution of symptoms, was tolerating p.o. at bedside. Given this patient is appropriate for discharge at this time was given return precautions and will follow-up with her family doctor on outpatient basis. Critical Care Critical Care Time Critical Care Time: No
[2023-06-20 12:15] LABS: Strep Scrn Group A (Rapid) Negative (Negative)
[2023-06-20] MEDS: BELLADONNA ALKALOIDS 60 ML ML PO (12:27)
[2023-06-20] MEDS: NYSTATIN SUSP 500,000 UNITS/5ML UDC 500000 UNIT PO (12:27)
[2023-06-20] MEDS: LACTATED RINGERS 1000ML 1,000 ML 999 ML IV (12:27)
[2023-06-20 12:28] LABS: Basophils % 0.4 % (0.1-2.0); Eosinophils # 0.1 K/mm3 (0.0-0.4); Eosinophils % 1.5 % (0.1-12.0); Hematocrit 40.8 % (37.0-47.0); Hemoglobin 13.5 g/dL (12.2-16.2); Lymphocytes # 1.8 K/mm3 (0.7-4.5); Lymphocytes % 22.8 % (10-50); Mean Corpuscular HGB Conc 33.1 g/dL (31.8-35.4); Mean Corpuscular Hemoglobin 28.2 pg (27.0-31.2); Mean Corpuscular Volume 85.1 fl (81-99); Monocytes # 0.4 K/mm3 (0.1-1.0); Monocytes % 4.9 % (1.7-9.3); Neutrophils # 5.5 K/mm3 (1.8-7.8); Neutrophils % 70.4 % (37.0-80.0); Platelet Count 284 K/mm3 (142-424); Red Blood Count 4.79 M/mm3 (4.20-5.40); Red Cell Distribution Width 14.3 % (11.5-17.5); White Blood Count 7.8 K/mm3 (4.8-10.8)
[2023-06-20 12:30] VITALS: BP 161/82; PULSE 92; O2SAT 96
[2023-06-20 12:43] LABS: Chloride 98 mmol/L (98-107)
[2023-06-20 12:44] LABS: Potassium 3.4 mmoL/L (3.5-5.1); Sodium 136 mmol/L (136-145)
[2023-06-20 12:46] LABS: Alanine Aminotransferase 22 U/L (12-78); Alkaline Phosphatase 115 U/L (38-126); Anion Gap 8.4 mEq/L (5-15); Aspartate Amino Transferase 33 U/L (14-36); Bilirubin,Total 0.5 mg/dl (0.2-1.3); Blood Urea Nitrogen 7 mg/dl (7-17); Carbon Dioxide 33 mmol/L (22.0-30.0); Creatinine Clearance Estimated 51 mL/min (50-200); Estimated Glomerular Filt Rate 72 ml/min (>60); GFR (African American) 87 ML/MIN (>60)
[2023-06-20 12:47] LABS: Albumin Level 3.8 g/dl (3.5-5.0); Albumin/Globulin Ratio 1.2 (1.1-1.8); Calcium 9.3 mg/dl (8.4-10.2); Globulin 3.3 g/dL (1.3-3.2); Glucose 108 mg/dl (74-100); Total Protein,Serum 7.1 g/dl (6.3-8.2)
[2023-06-20 13:00] VITALS: BP 157/72; PULSE 91; O2SAT 94
[2023-06-20 13:16] VITALS: BP 157/82; PULSE 92; RESP 18; TEMP 36.9
== END 2023-06-20 13:21 | disposition home or self-care (01) ==
PROVIDERS: Emergency Provider Emergency Medicine; PCP Internal Medicine Adolescent Medicine
DX: B37.0 Candidal stomatitis (principal); J44.9 Chronic obstructive pulmonary disease, unspecified; F17.210 Nicotine dependence, cigarettes, uncomplicated
CPT/HCPCS: 80053; 85025; 87430; 87636; 96360; 99284

== ENCOUNTER 2023-08-02 10:16 | Outpatient (CLI) | payer OTHER, SELFPAY ==
--- NOTE | 2023-08-02 10:16 | CT_ITS ---
FINAL REPORT TECHNIQUE: Axial CT images of the chest were obtained without contrast. Low-dose protocol was utilized. This study was performed with techniques to keep radiation doses as low as reasonably achievable (ALARA). Individualized dose reduction techniques using automated exposure control or adjustment of mA and/or kV according to the patient's size were employed. CLINICAL HISTORY: lung cancer screening current smoker 1ppd x40 years COMPARISON: 07/29/2022 FINDINGS: CT CHEST WITHOUT, LOW DOSE SCREENING CT Di Vol: 2.90 mGy DLP: 96.38 mGy*cm There is no axillary, mediastinal, or hilar adenopathy. The heart size is normal. There are mild coronary artery calcifications. There is no pleural or pericardial effusion. The lung windows show no suspicious mass or nodule. There is a right middle lobe calcified granuloma. Limited images of the upper abdomen demonstrate no acute findings. IMPRESSION: LR Category 1: 12 month follow-up low-dose chest CT is recommended. Reviewed, Interpreted and Dictated by Dalton Perez III, MD Transcribed by Sue Bates Authenticated and [facility]
== END 2023-08-02 23:59 ==
LOC: RAD 10:16
PROVIDERS: PCP Internal Medicine Adolescent Medicine; Visit Provider Internal Medicine Pulmonary Disease
DX: F17.210 Nicotine dependence, cigarettes, uncomplicated (principal); Z12.2 Encounter for screening for malignant neoplasm of respiratory organs
CPT/HCPCS: 71271

== ENCOUNTER 2023-08-19 12:02 | Emergency (ER) | payer OTHER, SELFPAY ==
[2023-08-19] VITALS (21 sets, daily range): BP systolic 176–253; BP diastolic 82–113; PULSE 76–91; RESP 15–16; TEMP 36.5–36.6; O2SAT 94–98; BMI 22.1
--- NOTE | 2023-08-19 12:21 | ECG_ITS ---
APPROVED REPORT Exam: Resting ECG HR:74 bpm ECG Measurements Heart Rate [address] 179 P 77 QRSd 84 QRS 62 QT 404 T 75 QTc 431 Conclusion SINUS RHYTHM NORMAL ECG Electronically signed by : KELLEN IGLESIAS, 08/19/2023 13:48:01
[2023-08-19 12:23] LABS: Basophils # 0.1 K/mm3 (0-0.2); Basophils % 0.9 % (0.1-2.0); Eosinophils # 0.1 K/mm3 (0.0-0.4); Eosinophils % 1.8 % (0.1-12.0); Hematocrit 41.7 % (37.0-47.0); Hemoglobin 12.7 g/dL (12.2-16.2); Lymphocytes % 28.6 % (10-50); Mean Corpuscular HGB Conc 30.5 g/dL (31.8-35.4); Mean Corpuscular Hemoglobin 27.7 pg (27.0-31.2); Mean Platelet Volume 7.5 fl (7.4-10.4); Monocytes # 0.4 K/mm3 (0.1-1.0); Monocytes % 5.8 % (1.7-9.3); Neutrophils # 4.5 K/mm3 (1.8-7.8); Neutrophils % 62.8 % (37.0-80.0); Platelet Count 255 K/mm3 (142-424); Red Blood Count 4.58 M/mm3 (4.20-5.40); White Blood Count 7.1 K/mm3 (4.8-10.8)
[2023-08-19 12:32] LABS: Alanine Aminotransferase 12 U/L (12-78); Albumin Level 4.2 g/dl (3.5-5.0); Albumin/Globulin Ratio 1.4 (1.1-1.8); Alkaline Phosphatase 116 U/L (38-126); Anion Gap 10.9 mEq/L (5-15); Aspartate Amino Transferase 27 U/L (14-36); Bilirubin,Total 0.4 mg/dl (0.2-1.3); Blood Urea Nitrogen 4 mg/dl (7-17); Calcium 9.3 mg/dl (8.4-10.2); Carbon Dioxide 29 mmol/L (22.0-30.0); Chloride 105 mmol/L (98-107); Creatinine Clearance Estimated 52 mL/min (50-200); Estimated Glomerular Filt Rate 84 ml/min (>60); GFR (African American) 102 ML/MIN (>60); Glucose 96 mg/dl (74-100); Potassium 3.9 mmoL/L (3.5-5.1); Sodium 141 mmol/L (136-145); Total Protein,Serum 7.2 g/dl (6.3-8.2)
--- NOTE | 2023-08-19 12:32 | PC.NURSE ---
Dr Tello asked for a manual BP and it was 220/130 ay approx 1229.
[2023-08-19] MEDS: NITROGLYCERIN 0.4MG SL TABLET 0.400000000000000022 MG SL (12:33)
[2023-08-19 12:44] LABS: Troponin I < 0.01 ng/ml (0.00-0.034)
[2023-08-19 12:47] LABS: Microscopic, Urine URINE MICROSCOPIC (MICROSCOPIC)
[2023-08-19 12:49] LABS: Appearance,Urine CLEAR (Clear); Bilirubin,Urine Negative (Negative); Blood, Urine TRACE-I (Negative); Color,Urine YELLOW (Yellow); Glucose,Urine (UA) Negative (Negative); Ketones,Urine Negative (Negative); Leukocyte Esterase,Urine 1+ (Negative); Nitrate,Urine Negative (Negative); Protein,Urine Negative (Negative); Urobilinogen,Urine 0.2 EU/dl (0.2)
[2023-08-19 12:49] LABS: T4 (Thyroxine) 10.8 ug/dl (5.53-11.0)
[2023-08-19 13:03] LABS: Thyroid Stimulating Hormone 4.42 uIU/mL (0.465-4.68)
--- NOTE | 2023-08-19 13:10 | ED_ITS ---
Discharge Plan Disposition Patient Disposition: Home, Self-Care Condition: Good Prescriptions Prescriptions: No Action metoprolol succinate 100 mg tablet extended release 24 hr 100 mg PO HS 30 Days Qty: 30 atorvastatin 40 mg tablet 40 mg PO HS citalopram 20 mg tablet 20 mg PO DAILY famotidine 20 mg tablet 20 mg PO DAILY amlodipine [Norvasc] 10 mg tablet 10 mg PO DAILY Qty: 30 2RF lisinopril-hydrochlorothiazide 20-25 mg tablet 2 tab PO DAILY Qty: 60 5RF pantoprazole 40 mg tablet,delayed release (DR/EC) PO albuterol sulfate 90 mcg/actuation HFA aerosol inhaler 1 inh INHALATION QID PRN (Reason: shortness of breath or wheezing) Qty: 8.5 12RF Spiriva with HandiHaler 18 mcg capsule, w/inhalation device 1 cap inhalation DAILY 90 Days Qty: 90 3RF Rx Instructions: puncture 1 cap using device; one dose = 2 inhalations albuterol sulfate 90 mcg/actuation HFA aerosol inhaler See Rx Instructions .ROUTE .COMPLEX Qty: 8.5 0RF Dose Instruction: INHALE 2 PUFFS BY MOUTH FOUR TIMES A DAY NEEDED FOR SHORTNESS OF BREATH OR WHEEZING Rx Instructions: INHALE 2 PUFFS BY MOUTH FOUR TIMES A DAY NEEDED FOR SHORTNESS OF BREATH OR WHEEZING fluticasone furoate-vilanterol [Breo Ellipta] 100-25 mcg/dose blister with device See Rx Instructions .ROUTE .COMPLEX Qty: 60 0RF Dose Instruction: INHALE 1 PUFF BY MOUTH ONCE A DAY Rx Instructions: INHALE 1 PUFF BY MOUTH ONCE A DAY azelastine 137 mcg (0.1 %) aerosol,spray 2 spray intranasal .COMPLEX Qty: 30 3RF Rx Instructions: 2 sprays intranasally at bedtime for 90days; administer into each nostril diphenhydramine HCl 25 MG tablet 25 mg PO NEEDED PRN (Reason: ALLERGIES) montelukast 10 MG tablet 10 mg PO HS PRN (Reason: ALLERGIES) fluticasone propionate 50 spray,suspension 2 spry NOSTRIL-B DAILY PRN (Reason: ALLERGIES) levocetirizine 5 MG tablet 5 mg PO HS PRN (Reason: ALLERGIES) prednisone [prednisone] 20 mg tablet 20 mg PO BID 5 Days Qty: 10 0RF ondansetron 4 mg tablet,disintegrating 4 mg PO Q8H PRN (Reason: nausea and vomiting) 4 Days Qty: 12 0RF nystatin 100,000 unit/mL suspension 5 ml PO QID 10 Days Qty: 200 0RF Rx Instructions: swish and swallow Referrals Follow up/Referrals: Jluis Marie MD [Primary Care Provider] - See instructions Activity Restrictions/Add. Instructions Additional Instructions/Restrictions: You were evaluated in the emergency department today. Please corn picker the prescriptions cardiology provided to you. Follow-up with them as instructed. Take your medications at home as prescribed. Do not miss any doses. I recommend taking your blood pressure at least twice a day and keeping a log of blood pressures to see if any medication needs to be adjusted by cardiology. Return to the emergency department for new symptoms, such as headache, vision changes, chest pain, or blood pressure greater than 200 on top despite taking your medications. Clinical Impressions Clinical Impression: Asymptomatic hypertensive urgency Instructions Patient Instructions: DI for High Blood Pressure Discharge ED Provider: Katty Tello General Adult HPI General Chief complaint: Recheck/Abnormal Lab/Rx Stated complaint: hbp, sent by press bucker Time Seen by Provider: 08/19/23 12:13 Mode of Arrival: Ambulatory Source of Information: Patient Limitations: No Limitations Description of Symptoms (Recalled from ER Triage Doc. by RN): Patient sent from cardiology related to high blood pressure. Denies headache, nausea or vomiting. States she has no symptoms. History of Present Illness HPI narrative: This patient is a 63-year-old female with a history of tobacco use disorder, COPD, malignant hypertension, and hyperlipidemia presenting to the emergency department for evaluation with concern for high blood pressure. According to the patient, she was sent over from cardiology clinic with concern that her blood pressure was too high. She denies any concerns or complaints and states that she is feeling fine. She reports compliance with her home blood pressure medications and states that she took all of her medications this morning as prescribed. On medical record review, she takes lisinopril/HCTZ and metoprolol. According to our cardiology clinic note, patient was seen there today with blood pressure noted to be in the 230s over 100s. They plan to start her on Norvasc 10 mg daily as well as increase her lisinopril/HCTZ to 20/25 milligram tablets, 2 tablets daily. They would like for her blood pressure to be improved prior to discharge home. Patient denies any headache, vision changes, chest pain, shortness of breath, abdominal pain, back pain, urinary symptoms, or other concerns. Related Data Home Medications Medication Instructions Recorded Confirmed metoprolol succinate 100 mg 100 mg PO HS High blood pressure 08/16/18 08/19/23 tablet,extended release 24 hr 30 days #30 tabs diphenhydramine HCl 25 mg tablet 25 mg PO NEEDED PRN ALLERGIES 02/26/19 08/19/23 fluticasone propionate 50 2 spry NOSTRIL-B DAILY PRN 02/26/19 08/19/23 mcg/actuation nasal ALLERGIES spray,suspension levocetirizine 5 mg tablet 5 mg PO HS PRN ALLERGIES 02/26/19 08/19/23 montelukast 10 mg tablet 10 mg PO HS PRN ALLERGIES 02/26/19 08/19/23 pantoprazole 40 mg tablet,delayed mg PO 06/26/20 08/19/23 release atorvastatin 40 mg tablet 40 mg PO HS 08/19/23 08/19/23 citalopram 20 mg tablet 20 mg PO DAILY 08/19/23 08/19/23 famotidine 20 mg tablet 20 mg PO DAILY 08/19/23 08/19/23 Previous Rx's Medication Instructions Recorded albuterol sulfate 90 mcg/actuation 1 inh inhalation QID PRN shortness 08/26/20 aerosol inhaler of breath or wheezing #8.5 grams tiotropium bromide 18 mcg capsule 1 cap inhalation DAILY 90 days #90 09/03/22 with inhalation device (Spiriva puffs with HandiHaler) albuterol sulfate 90 mcg/actuation See Rx Instructions .Route 04/29/23 aerosol inhaler .COMPLEX #8.5 grams prednisone 20 mg tablet 20 mg PO BID 5 days #10 tabs 06/14/23 nystatin 100,000 unit/mL oral 5 ml PO QID Thrush 10 days #200 mL 06/20/23 suspension ondansetron 4 mg disintegrating 4 mg PO Q8H PRN nausea and 06/20/23 tablet vomiting 4 days #12 tabs fluticasone furoate 100 See Rx Instructions .Route 07/28/23 mcg-vilanterol 25 mcg/dose .COMPLEX #60 blisters inhalation powder (Breo Ellipta) azelastine 137 mcg (0.1 %) nasal 2 spray intranasal .COMPLEX 08/10/23 spray aerosol Allergic Rhinitis #30 mL amlodipine 10 mg tablet (Norvasc) 10 mg PO DAILY #30 tabs 08/19/23 lisinopril 20 2 tab PO DAILY High blood pressure 08/19/23 mg-hydrochlorothiazide 25 mg tablet #60 tabs Allergies Allergy/AdvReac Type Severity Reaction Status Date / Time No Known Allergies Allergy Verified 08/19/23 11:23 [facility] Disclaimer: The information contained in this section may have been updated after the patient was seen, as this information can be updated by other users. Medical History Hyperlipidemia Hypertension Screening for lung cancer Smoking greater than 30 pack years Dyspnea on exertion Tobacco abuse disorder Tobacco abuse counseling COPD (chronic obstructive pulmonary disease) Dyspnea on exertion Surgical History History of total hysterectomy History of colonoscopy Family History Other No significant family history Social History Smoking Status: Unknown if ever smoked alcohol intake: never substance use type: denies use current occupational status: other Travel in the last 8 weeks: None ROS Obtained: Yes All systems reviewed & no additional complaints except as documented Physical Exam General General appearance: alert and in no apparent distress Head Head exam: atraumatic and normocephalic Eye Eye exam: Present normal appearance, PERRL and EOMI ENT ENT exam: Present normal exam, normal oropharynx, mucous membranes moist and normal external ear exam Neck Neck exam: Present normal inspection, full ROM and trachea midline; Absent tenderness Chest Chest inspection: Present normal inspection and symmetric chest wall rise; Absent tenderness Respiratory Respiratory exam: Present normal lung sounds bilaterally; Absent respiratory distress, wheezes, stridor or accessory muscle use Cardiovascular Cardiovascular exam: Present regular rate and normal rhythm Abdominal Exam Abdominal exam: Present soft; Absent distention, tenderness or guarding Extremities Exam Extremities exam: Present normal inspection, full ROM and normal capillary refill; Absent tenderness or edema Back Exam Back exam: Present normal inspection and full ROM; Absent tenderness Neurological Exam Neurological exam: Present alert, oriented X3, CN II-XII intact and normal gait; Absent motor sensory deficit Psychiatric Psychiatric exam: Present normal affect and normal mood Skin Skin exam: Present warm and dry Medical Decision Making Medical Records Medical records reviewed: Yes I reviewed the patient's medical records. Rubio Inquiry Pt receiving controlled substance: No Vital Signs: 08/19/23 12:04 08/19/23 12:08 08/19/23 12:23 Temperature 97.7 F Temperature Source Oral Pulse Rate 84 91 H Pulse Rate [Radial] 86 Respiratory Rate 16 Blood Pressure 232/98 H 204/113 H Blood Pressure [Right Arm] 253/111 H Blood Pressure Mean Blood Pressure Mean [Right Arm] 158 Blood Pressure Source [Right Arm] Automatic Cuff Blood Pressure Position [Right Arm] Sitting 02 Sat by Pulse Oximetry 96 97 94 L Oxygen Delivery Method Room Air 08/19/23 12:34 08/19/23 12:35 08/19/23 12:45 Temperature Temperature Source Pulse Rate 81 Pulse Rate [Radial] Respiratory Rate Blood Pressure 222/102 H 204/109 H 207/102 H Blood Pressure [Right Arm] Blood Pressure Mean 129 128 127 Blood Pressure Mean [Right Arm] Blood Pressure Source [Right Arm] Blood Pressure Position [Right Arm] 02 Sat by Pulse Oximetry 97 96 97 Oxygen Delivery Method 08/19/23 12:50 08/19/23 12:55 08/19/23 13:00 Temperature Temperature Source Pulse Rate 81 81 81 Pulse Rate [Radial] Respiratory Rate Blood Pressure 203/98 H 217/99 H 193/94 H Blood Pressure [Right Arm] Blood Pressure Mean 119 120 127 Blood Pressure Mean [Right Arm] Blood Pressure Source [Right Arm] Blood Pressure Position [Right Arm] 02 Sat by Pulse Oximetry 97 97 97 Oxygen Delivery Method 08/19/23 13:03 08/19/23 13:05 08/19/23 13:10 Temperature Temperature Source Pulse Rate 80 79 81 Pulse Rate [Radial] Respiratory Rate Blood Pressure 184/88 H 201/93 H 199/93 H Blood Pressure [Right Arm] Blood Pressure Mean 120 129 128 Blood Pressure Mean [Right Arm] Blood Pressure Source [Right Arm] Blood Pressure Position [Right Arm] 02 Sat by Pulse Oximetry 98 97 96 Oxygen Delivery Method Room Air Room Air Room Air 08/19/23 13:15 08/19/23 13:20 08/19/23 13:25 Temperature Temperature Source Pulse Rate 81 82 80 Pulse Rate [Radial] Respiratory Rate Blood Pressure 186/94 H 205/90 H 203/100 H Blood Pressure [Right Arm] Blood Pressure Mean 124 128 120 Blood Pressure Mean [Right Arm] Blood Pressure Source [Right Arm] Blood Pressure Position [Right Arm] 02 Sat by Pulse Oximetry 97 98 96 Oxygen Delivery Method Room Air Room Air Room Air 08/19/23 13:30 08/19/23 13:35 08/19/23 13:40 Temperature Temperature Source Pulse Rate 81 80 Pulse Rate [Radial] Respiratory Rate Blood Pressure 178/95 H 186/92 H 182/92 H Blood Pressure [Right Arm] Blood Pressure Mean 113 109 116 Blood Pressure Mean [Right Arm] Blood Pressure Source [Right Arm] Blood Pressure Position [Right Arm] 02 Sat by Pulse Oximetry 97 96 Oxygen Delivery Method Room Air Room Air 08/19/23 13:45 08/19/23 13:50 Temperature Temperature Source Pulse Rate Pulse Rate [Radial] Respiratory Rate Blood Pressure 182/89 H 179/94 H Blood Pressure [Right Arm] Blood Pressure Mean 120 119 Blood Pressure Mean [Right Arm] Blood Pressure Source [Right Arm] Blood Pressure Position [Right Arm] 02 Sat by Pulse Oximetry Oxygen Delivery Method Lab Data Lab results reviewed: Yes I reviewed the patient's lab results. Lab Results 08/19/23 12:14: WBC 7.1, RBC 4.58, Hgb 12.7, Hct 41.7, MCV 91.0, MCH 27.7, MCHC 30.5 L, RDW 16.0, Plt Count 255, MPV 7.5, Neut % (Auto) 62.8, Lymph % (Auto) 28.6, Wilson % (Auto) 5.8, Eos % (Auto) 1.8, Baso % (Auto) 0.9, Neut # (Auto) 4.5, Lymph # (Auto) 2.0, Wilson # (Auto) 0.4, Eos # (Auto) 0.1, Baso # (Auto) 0.1, Sodium 141, Potassium 3.9, Chloride 105, Carbon Dioxide 29, Anion Gap 10.9, BUN 4 L, Creatinine 0.70, Estimated Creat Clear 52, Estimated GFR 84, Est GFR ( Amer) 102, Glucose 96, Calcium 9.3, Total Bilirubin 0.4, AST 27, ALT 12, Alkaline Phosphatase 116, Troponin I < 0.01, Total Protein 7.2, Albumin 4.2, Globulin 3.0, Albumin/Globulin Ratio 1.4, TSH 4.42, Thyroxine (T4) 10.8 08/19/23 12:40: Urine Color Yellow, Urine Appearance Clear, Urine pH 6.0, Ur Specific [place] 1.010, Urine Protein Negative, Urine Glucose (UA) Negative, Urine Ketones Negative, Urine Blood Trace-i, Urine Nitrate Negative, Urine Bilirubin Negative, Urine Urobilinogen 0.2, Ur Leukocyte Esterase 1+ A, Urine RBC Occasional, Urine WBC 3-5, Ur Squamous Epith Cells 3-5, Urine Bacteria Trace 08/19/23 12:14 08/19/23 12:14 Orders (Tests/Meds): ED MEDICATIONS Generic Name Dose Route Start Last Admin Trade Name Freq PRN Reason Stop Dose Admin Sodium Chloride 10 ml 08/19/23 12:17 Sodium Chloride 0.9% 10ml Flush Syringe IV 09/18/23 12:16 NEEDED PRN Maintain IV Site Discontinued Medications Generic Name Dose Route Start Last Admin Trade Name Freq PRN Reason Stop Dose Admin Amlodipine Besylate 10 mg 08/19/23 13:04 08/19/23 13:17 Amlodipine 10mg Tablet PO 08/19/23 13:05 10 mg ONCE ONE Administration Lisinopril/HCTZ 2 each 08/19/23 13:05 08/19/23 13:17 Lisinopril/Hctz 10-12.5mg Tablet PO 08/19/23 13:06 2 each ONCE ONE Administration Nitroglycerin 0.4 mg 08/19/23 12:28 08/19/23 12:33 Nitroglycerin 0.4mg Sl Tablet SL 08/19/23 12:29 0.4 mg ONCE ONE Administration ORDERS Category Date Time Status Complete Blood Count Auto Diff Stat Lab 08/19/23 12:14 Completed Comprehensive Metabolic Panel Stat Lab 08/19/23 12:14 Completed T4 (Thyroxine) Stat Lab 08/19/23 12:14 Completed Thyroid Stimulating Hormone Stat Lab 08/19/23 12:14 Completed Troponin I Q3H Lab 08/19/23 15:30 Ordered Troponin I Q3H Lab 08/19/23 18:30 Ordered Troponin I Stat Lab 08/19/23 12:14 Completed Urinalysis and Microscopic Stat Lab 08/19/23 12:40 Completed Urine Culture Stat Micro 08/19/23 12:40 Received ECG Data Tracing #1: Normal sinus rhythm with a ventricular rate of 74 bpm. Normal axis and intervals. No acute ST changes concerning for ischemia. ECG initial impression date: 08/19/23 ECG initial impression time: 12:22 Medical Decision Narrative: In summary, this patient is a 63-year-old female presenting to the Emergency Department for evaluation of extremely high blood pressures in cardiology clinic. Differential diagnoses considered include but are not limited to hypertensive urgency, hypertensive emergency, asymptomatic hypertension, ACS. Ruling out the most morbid conditions drove assessment. On exam, the patient is very well-appearing and denies any symptoms or complaints. Cardiopulmonary exam is reassuring. She is entirely asymptomatic. Blood pressure upon arrival was 250s over 110s. After left sitting in the room, on her own she had decreased to the low 200s over 100s. Workup included CBC, CMP, troponin, TSH, T4, and EKG. EKG obtained is reassuring. Given the patient is asymptomatic and exam is otherwise reassuring, doubt urgent pathology, such as stroke or aortic dissection. Patient was given oral sublingual nitroglycerin to assess for improvement. On subsequent reassessment, patient did have improvement in her blood pressure with systolics in the 180s and diastolics in the 90s. She continues to be asymptomatic. Workup is reassuring with normal creatinine, negative troponin, normal thyroid studies, and no other acutely concerning abnormalities. At this time, I considered administering IV medications for hypertension control, however she has already been decreased significantly. Will assess her response to the medications that she is supposed to be started on as an outpatient, including Norvasc and increasing her lisinopril/HCTZ. At 1300, patient was placed in ED observation status pending continued blood pressure monitoring to determine whether or not the patient would be appropriate for discharge versus admission. The patient was provided serial reevaluations and cardiac monitoring while awaiting ultimate disposition. On multiple subsequent reassessments, patient continued to have improvement in her blood pressure with systolics ranging in the 170s to 180s. She remains asymptomatic. I called and had an interactive discussion with cardiology clinic who advised that since patient has had improvement in blood pressure, they do feel that it is okay to discharge her with instructions to take the medications that they prescribed. Strict return precautions were given, and I advised the patient to keep an eye on her blood pressure at home. The patient was discharged after all questions were answered. Total ED observation time was 1 hour. Critical Care Critical Care Time Critical Care Time: No
[2023-08-19] MEDS: LISINOPRIL/HCTZ 10-12.5MG TABLET 2 EACH PO (13:17)
[2023-08-19] MEDS: AMLODIPINE 10MG TABLET 10 MG PO (13:17)
[2023-08-19 13:24] LABS: Bacteria,Urine Trace /lpf; RBC,Urine Occasional #/hpf (0-3)
--- NOTE | 2023-08-19 13:53 | PC.NURSE ---
called cardiology to discuss further pt care. Shira Asher will return call after she is finished with her pt
== END 2023-08-19 14:13 | disposition home or self-care (01) ==
PROVIDERS: Emergency Provider Emergency Medicine; PCP Internal Medicine Adolescent Medicine
DX: I16.0 Hypertensive urgency (principal); B96.89 Other specified bacterial agents as the cause of diseases classified elsewhere; J44.9 Chronic obstructive pulmonary disease, unspecified; I10 Essential (primary) hypertension; E78.5 Hyperlipidemia, unspecified; Z87.891 Personal history of nicotine dependence
CPT/HCPCS: 80053; 81001; 84436; 84443; 84484; 85025; 87086; 93005; 99284

== ENCOUNTER 2023-09-06 06:48 | Outpatient (CLI) | payer OTHER, SELFPAY ==
--- NOTE | 2023-09-06 06:48 | CA_ITS ---
FINAL REPORT TECHNIQUE: Grayscale, color Doppler and duplex Doppler ultrasound of the kidneys, aorta and renal arteries was performed. Multiple velocities were measured. CLINICAL HISTORY: HTN,SMOKER,HLD COMPARISON: None FINDINGS: Aorta velocity: 114 cm/sec Right kidney: 9.8 cm. No evidence of hydronephrosis or mass. Right intrarenal RI: 0.59-0.65 Right renal artery velocity: 206 cm/sec. Right RAR (Renal artery-Aortic Ratio): 1.81 Left Kidney: 9.5 cm. No evidence of hydronephrosis or mass. Left intrarenal RI: 0.58-0.76 Left renal artery velocity: 196 cm/sec. Left RAR (Renal Artery-Aortic Ratio): 1.73 IMPRESSION: Less than 60% stenosis bilateral renal arteries. Recommend correlation with CTA or catheter angiogram Reviewed, Interpreted and Dictated by Dalton Perez III, MD Transcribed by Sue Bates Authenticated and [facility]
--- NOTE | 2023-09-06 06:53 | US_ITS ---
FINAL REPORT CLINICAL HISTORY: R94.31 - Abnormal electrocardiogram ECG EKG hypertension COMPARISON: None FINDINGS: RENAL ULTRASOUND Ultrasound images of the kidneys were obtained. Limited images of the liver parenchyma demonstrates normal echogenicity. The right kidney measures 9.4 cm in length. There is a lobular contour with mild scarring. The left kidney measures 9.3 cm in length. Mild renal cortical thinning. No hydronephrosis bilaterally. IMPRESSION: Lobular contour of the right kidney with mild scarring. Mild renal cortical thinning of the left kidney. No hydronephrosis bilaterally. Reviewed, Interpreted and Dictated by Dalton Perez III, MD Transcribed by Sue Bates Authenticated and [facility]
== END 2023-09-06 23:59 | disposition home or self-care (01) ==
PROVIDERS: PCP Internal Medicine Adolescent Medicine; Visit Provider Nurse Practitioner Family
DX: R94.31 Abnormal electrocardiogram [ECG] [EKG] (principal); I10 Essential (primary) hypertension; R06.09 Other forms of dyspnea; J43.2 Centrilobular emphysema; F17.210 Nicotine dependence, cigarettes, uncomplicated
CPT/HCPCS: 76770; 93976

== ENCOUNTER 2023-09-13 11:12 | Outpatient (CLI) | payer OTHER, SELFPAY ==
--- NOTE | 2023-09-13 | CA_ITS ---
APPROVED REPORT Exam: Pharmacologic Technologist: Mariela Olsen, Ht: 5 ft 4 in Wt: 129 lbs BSA: 1.62 m2 HR: 79 bpm BP: 141/77 mmHg Rhythm: SR, OCCASIONAL PAC Medical History Medical History: HTN, Hyperlipidemia, Smoking Medications: Amlodipine,,,,, Spiriva,,,,, Pantoprazole,,,,, Atorvastatin,,,,, Flonase,,,,, Citalopram,,,,, Albuterol,,,,, Montelukast,,,,, Famotidine,,,,, Prednisone,,,,, Levocetirizine,,,,, AZelastine,,,,, Allergies: No known drug allergies Cardiac Risk Factors: HTN, Hyperlipidemia, Smoking Stress Test Details Test: LEXISCAN HR Resting HR: 80 bpm Max Heart Rate (APMHR): 156 bpm Max HR Achieved: 125 bpm Target HR (85% APMHR): 133 bpm % of APMHR: 80 Recovery HR: 87 bpm BP Resting BP: 141/77 mmHg Max BP: 203/90 mmHg Recovery BP: 150.0/77.0 mmHg ECG Resting ECG: SR, OCCASIONAL PAC Stress ECG: No significant ST changes Arrhythmia: PACs Clinical Exercise duration: 04:01 min Highest Stage Achieved: Stress ECG Conclusion The patient had dyspnea and nausea after Lexiscan administration, resolved shortly thereafter. Ectopy: PACs ST changes: None Conclusion: Markedly elevated BP at baseline in the setting of not taking the morning medications. Unremarkable Lexiscan ECG portion of stress test. Myoview images reported separately. Test Summary REST 02:20 . . 80 . 141/ 77 . . Stage 1 01:00 . . 103 . . . . Stage 2 01:00 . . 113 . 179/ 77 . . Stage 3 01:00 . . 101 . 176/ 75 . . Stage 4 01:00 . . 98 . 195/ 89 . . Stage 4 01:01 . . 100 . 195/ 89 . Stop exercise at 04:01 RECOVERY 01:00 . . 102 . 196/101 . . RECOVERY 02:00 . . 100 . 196/101 . . RECOVERY 03:00 . . 93 . 203/ 90 . . RECOVERY 04:00 . . 92 . 203/ 90 . . RECOVERY 04:50 . . 90 . 150/ 77 . . Electronically signed by : Laura Napier MD 09/14/2023 13:55:58
--- NOTE | 2023-09-13 11:13 | NM_ITS ---
APPROVED REPORT Exam: Nuclear Stress Test Indication: HTN, HYPERLIPIDEMIA, TOB USE, SOB Patient Location: Outpatient Stress Tech: Mariela Olsen NM Tech:Joy Mcdaniel ARRT, RT (R)(N) Ht: 5 ft 4 in Wt: 126 lbs Bra Size: 36C HR: 80 bpm BP: 141/77 mmHg BSA: 1.61 m2 TID: 1.08 BMI: 21.6 History: HTN, HYPERLIPIDEMIA, TOB USE, SOB Procedure: Patient received 0.4 mg of intravenous Lexiscan, resting heart rate 80 bpm, resting blood pressure 141/77 mmHg, with Lexiscan maximum heart rate achieved was 125 bpm which is % of the maximum predicted heart rate and blood pressure was 203/90 mmHg. With Lexiscan, patient denied any complaint of chest pain. Cardiac Stress and Resting SPECT Images: Cardiac Stress and Resting SPECT images were obtained using technetium 99m Myoview 31.2 mCi stress and 10.14 mCi at rest. Resting and stress imaging in supine and prone positions demonstrate a medium sized, moderate, fixed perfusion defect in the basal to mid inferior and inferoseptal LV dunbar. Gated imaging demonstrates mild reduction global LV systolic function. There is moderate hypokinesis of the basal inferior aind inferoseptal LV dunbar. LVEF is calculated at 43%. Conclusion: Medium sized, moderate, fixed perfusion defect in the basal to mid inferior and inferoseptal LV dunbar. Gated imaging demonstrates mild reduction global LV systolic function. There is moderate hypokinesis of the basal inferior aind inferoseptal LV dunbar. LVEF is calculated at 43%. Of note, the patient blood pressure was markedly elevated at baseline on arrival in the setting of not taking her home blood pressure medications in the morning. Electronically signed by : Laura Napier MD 09/14/2023 13:58:22
--- NOTE | 2023-09-13 11:19 | CA_ITS ---
APPROVED REPORT EXAM: Comprehensive 2D, Doppler, and color-flow Echocardiogram Senior Information Security Consultant: Marianne Hughes CRT Ht: 5 ft 4 in Wt: 129lbs BSA: 1.62 BP: 230/102 mmHg Indications: Abnormal ECG, COPD, Hyperlipidemia 2D Dimensions LA Volume 46.60 mL LA Volume Index 28.10 mL/m2 (M/F) 16-34 M-Mode Dimensions RVDd 3.22 cm (0.9-2.6) LA Diam 3.40 cm (1.9-4.0) LVDd 3.75 cm (3.5-5.7) LVDs 2.68 cm (3.5-5.7) IVSd 1.36 cm (0.6-1.1) PWd 0.61 cm (0.6-1.1) EF (Teich) 55.80% FS 28.50% EDV (Teich) 60.00 mL TAPSE 1.64 (<1.7) ESV (Teich) 26.50 mL LV Diastology MED A' 7.10 cm/s LAT A' 7.80 cm/s Aortic Valve AI PHT 493.00 ms AO Peak GR. 4.90 mmHg Pulmonary Valve PV Peak Velocity 103.0 (50-150 cm/s) Tricuspid Valve TR P. Velocity 154.00 cm/s RAP Estimate 10.00 mmHg RVSP 19.50 mmHg Left Ventricle The left ventricle is normal size. The left ventricular systolic function is normal. The left ventricular ejection fraction is within the normal range. There is increased LV wall thickness. There is normal LV segmental wall motion. Transmitral Doppler flow pattern suggests impaired LV relaxation. LVEF is 60%. Right Ventricle The right ventricle is normal size. The right ventricular systolic function is normal. Atria The left atrium size is normal. The right atrium size is normal. There is no Doppler evidence of interatrial shunt. Aortic Valve The aortic valve is mildly thickened. Mild aortic regurgitation. There is no aortic valvular stenosis. Mitral Valve The mitral valve is normal in structure. No evidence of mitral valve stenosis. There is no mitral valve regurgitation noted. Tricuspid Valve The tricuspid valve leaflets are thin and pliable. Trace tricuspid regurgitation. There is insufficient TR jet to estimate RVSP. Pulmonic Valve The pulmonary valve is normal in structure. Trace pulmonic regurgitation. Great Vessels The aortic root is normal in size. The ascending aorta is normal in size. IVC is normal in size and collapses >50% with inspiration. Pericardium There is no pericardial effusion. Other Information Study Quality: Fair Conclusion Normal biventricular systolic function. Mild AI. Electronically signed by : Laura Napier MD 09/15/2023 10:33:21
[2023-09-13] MEDS: ISOTOPE MYOVIEW (PER STUDY) 1 DOSE IV (13:23)
[2023-09-13] MEDS: SODIUM CHLORIDE 0.9% 10ML SYR (RAD ONLY) 10 ML IV ×2 (13:23)
[2023-09-13] MEDS: REGADENOSON 0.4MG/5ML SYRINGE 0.400000000000000022 MG IV (13:23)
== END 2023-09-13 23:59 | disposition home or self-care (01) ==
LOC: RAD 11:13
PROVIDERS: PCP Internal Medicine Adolescent Medicine; Visit Provider Nurse Practitioner Family
DX: R06.09 Other forms of dyspnea (principal); R94.31 Abnormal electrocardiogram [ECG] [EKG]; I10 Essential (primary) hypertension; J43.2 Centrilobular emphysema; F17.210 Nicotine dependence, cigarettes, uncomplicated
CPT/HCPCS: 78452; 93017; 93018; 93306; A9502; J2785

== ENCOUNTER 2023-09-29 07:32 | Outpatient (CLI) | payer OTHER, SELFPAY ==
--- NOTE | 2023-09-29 07:32 | CT_ITS ---
APPROVED REPORT Manager Pricing: CLINICAL INDICATION Chest Pain TECHNIQUE Image Acquisition: A 128 slice MDCT scanner (Deja View Concept[employer] View) was used for data acquisition. A noncontrast coronary calcium scan was performed. A CT attenuation threshold of 130 Hounsfield units (HU) was used for the detection of calcium in contiguous voxels of 1 sq mm in area to be counted as individual lesions. Bolus tracking in the ascending aorta with a threshold of 180 HU was performed. Immediately afterwards, ECG synchronized cardiac CT was then performed from the cardiac base to apex using retrospective gating with ECG tube current modulation. A total of 85 mL of Isovue 370 mg/mL contrast medium was administered at 5 mL/sec followed by a saline flush using a biphasic injection protocol. A tube voltage of 120 KVp was used. The patient received the following medications prior to the cardiac CT. 75 mg of oral metoprolol 15 mg of oral ivabradine 0.8 mg of sublingual nitroglycerin The average heart rate at the time of acquisition was 48 bpm and regular. Image Reconstruction Transaxial images were reconstructed at 0.67 mm slide thickness. Data was reviewed interactively on an advanced workstation capable of 2 and 3-dimensional displays in all conventional reconstruction formats, including multiplanar reformations, maximum intensity projections, curved multiplanar reformations, and volume rendered reconstructions. When applicable, selected routine images describing the relevant coronary anatomy and pathology were saved and sent to PACS. Complications None Technical Quality Overall image quality was good. Coronary artery opacification was adequate. Total DLP (Dose-Length Product) is 1511.7 mGy-cm. The reported value represents the total of one or more individual components during the CT acquisition of this date and at this time, and as such, the same value may appear in more than one CT report depending on the interpreting/reporting physicians. COMPARISON None FINDINGS CT Coronary Calcium Scoring LMA (Left Main Artery) = 9 LAD (Left Anterior Descending) = 72 LCX (Left Coronary Circumflex) = 143 RCA (Right Coronary Artery) = 3 Total Calcium Score = 226 using the AJ-130 method. The observed calcium score of 226 is at 91st percentile for subjects of the same age, sex, and race/ethnicity. The interpretation of the calcium heart score is based on the following continuum*: 0 = no calcified plaque detected (risk of coronary artery disease is very low ??? less than 5%) 1-10 = calcium detected in extremely minimal levels (risk of coronary diseases is still low ??? less than 10%) 11-100 = mild levels of plaque detected with certainty (mild or minimal narrowing of heart arteries is likely) 101-400 = definite,at least moderate levels of plaque detected (relatively high risk of a heart attack within 3-5 years) >401-999 = extensive levels of plaque detected (high risk of heart attack, high levels of vascular disease are present, high likelihood of at least one significant coronary narrowing) *The calcium heart score quantifies the burden of coronary calcification/plaque in the coronary arteries. The calcium heart score is not able to evaluate the presence or burden of non-calcified (i.e. soft) plaque. There is also identifiable calcification in the ascending and descending thoracic aorta, as well as the mitral annulus. Coronary CT Angiography The coronary arterial system is right dominant. Quantitative Stenosis Grading: Left Main (LM): The left main originates normally from the left sinus of Valsalva. The LM trifurcates into the left anterior descending artery, ramus intermedius, and left circumflex artery. There is calcified plaque present in the LM, but with no luminal stenosis. Left Anterior Descending (LAD) and Diagonal Branches: The LAD gives off 2 diagonal branch(es). There is mixed calcified/noncalcified plaque in the proximal and mid LAD segments, as well as the first diagonal branch, with up to 50-70% luminal stenosis. There is no evidence of LAD-myocardial bridge. Ramus-intermedius (RI): The RI is patent. Left Circumflex (LCX) and Obtuse Marginals (OM): The LCX gives off 2 Obtuse Marginal (OM) branch(es). There is mixed calcified/noncalcified plaque in the proximal LCx, with up to 50-70% luminal stenosis. Right Coronary Artery (RCA): The RCA originates normally from the right sinus of Valsalva. The RCA gives off a posterior descending artery (PDA) and posterolateral (PL) branches. There is lack of opacification present in the proximal RCA, concerning for total/subtotal occlusion. Non-Coronary Cardiac Findings: Analysis of the left ventricular (LV) structure and function was performed after 3-D reconstruction of the LV from axial images, with user-corrected automatic contouring for assessment of LV volumes and user-defined reconstruction from oblique planes for measurement of 3-D cardiac structure and function. -The left ventricle systolic function is normal. -There is no left atrial appendage filling defect. Two right pulmonary veins and two left pulmonary veins drain normally into the left atrium. -No pericardial thickening or calcification. -Central and branch pulmonary arteries in the [id number] are unremarkable. -Thoracic aorta within the visualized thoracic aortic-branches in the [id number] is unremarkable. Extracardiac Structures No significant extra-cardiac findings. Note, however, that this study is focused on the cardiac findings. IMPRESSION -Presence of coronary calcification with an Agatston score = 226 using the AJ-130 method. -The observed calcium score of 226 is at 91st percentile for subjects of the same age, sex, and race/ethnicity. -Possible evidence of significant flow-limiting atherosclerosis of the proximal/mid-LAD segments, the proximal LCX, and near-complete absence of opacification distally after the proximal RCA segments, suggestive of possible total/subtotal occlusion of the RCA. -CAD-RADS 5. Management recommendations per ACC/AHA guidelines*, as clinically appropriate. *Recommendations: CAD RADS 0: Reassurance. Consider non-atherosclerotic causes of chest pain. CAD RADS 1: Consider non-atherosclerotic causes of chest pain. Consider preventive therapy and risk factor modification. CAD RADS 2: Consider non-atherosclerotic causes of chest pain. Consider preventive therapy and risk factor modification, particularly for patients with nonobstructive plaque in multiple segments. CAD RADS 3: Consider further functional testing. Consider symptom-guided anti-ischemic and preventive pharmacotherapy as well as risk factor modification per published guideline statements. CAD RADS 4A: Consider further functional testing or invasive coronary angiography with revascularization per published guideline statements. Consider symptom-guided anti-ischemic and preventive pharmacotherapy as well as risk factor modification per published guideline statements. CAD RADS 4B: Invasive coronary angiography recommended with revascularization per published guideline statements. Consider symptom-guided anti-ischemic and preventive pharmacotherapy as well as risk factor modification per published guideline statements. CAD RADS 5: Consider invasive angiography and/or viability assessment with revascularization per published guideline statements. Consider symptom-guided anti-ischemic and preventive pharmacotherapy as well as risk factor modification per published guideline statements. CRITICAL RESULT None COMMUNICATION Per this written report The coronary and cardiac findings of this CCTA were reviewed, reported, and signed by Yan Napier MD (Switch Repairer) Conclusion Electronically signed by : Laura Napier MD 09/30/2023 12:38:45
[2023-09-29 07:44] VITALS: BMI 21.9
[2023-09-29 07:58] VITALS: BP 142/72; PULSE 81; RESP 18; TEMP 36.2; O2SAT 96; BMI 21.8
[2023-09-29] MEDS: METOPROLOL TARTRATE 25MG TABLET 25 MG (08:02)
[2023-09-29] MEDS: IVABRADINE HCL 7.5MG TABLET PO (08:02)
[2023-09-29] MEDS: METOPROLOL TARTRATE 50MG TABLET PO (08:02)
[2023-09-29 08:25] LABS: Anion Gap 12.6 mEq/L (5-15); Blood Urea Nitrogen 7 mg/dl (7-17); Calcium 9.5 mg/dl (8.4-10.2); Carbon Dioxide 31 mmol/L (22.0-30.0); Chloride 100 mmol/L (98-107); Creatinine Clearance Estimated 52 mL/min (50-200); Estimated Glomerular Filt Rate 72 ml/min (>60); GFR (African American) 87 ML/MIN (>60); Glucose 98 mg/dl (74-100); Potassium 3.6 mmoL/L (3.5-5.1); Sodium 140 mmol/L (136-145)
[2023-09-29 08:43] VITALS: BP 149/62; PULSE 63; RESP 16; O2SAT 98
[2023-09-29] MEDS: NITROGLYCERIN 0.4MG SL TABLET SL (08:43)
[2023-09-29 08:48] VITALS: BP 146/72; PULSE 58; RESP 16; O2SAT 98
[2023-09-29 08:52] VITALS: BP 92/48; PULSE 59; RESP 16; O2SAT 96
[2023-09-29] MEDS: SODIUM CHLORIDE 0.9% 10ML SYR (RAD ONLY) 10 ML IV (08:55)
[2023-09-29] MEDS: IOPAMIDOL-370 (76%);100ML BOTTLE 85 ML IV (08:55)
[2023-09-29] MEDS: 0.9 % SODIUM CHLORIDE 50 ML VIAL IV (08:55)
[2023-09-29 09:03] VITALS: BP 138/66; PULSE 64; RESP 16; O2SAT 96
== END 2023-09-29 09:05 | disposition home or self-care (01) ==
PROVIDERS: PCP Internal Medicine Adolescent Medicine; Visit Provider Nurse Practitioner Family
DX: R93.1 Abnormal findings on diagnostic imaging of heart and coronary circulation (principal); R06.09 Other forms of dyspnea
CPT/HCPCS: 75574; 80048; Q9967

== ENCOUNTER 2023-10-12 08:58 | Day surgery (SDC) | payer OTHER, SELFPAY ==
[2023-10-12] VITALS (13 sets, daily range): BP systolic 143–195; BP diastolic 74–119; PULSE 67–90; RESP 16–20; TEMP 36.9; O2SAT 93–100; BMI 22.1
--- NOTE | 2023-10-12 07:09 | IR_ITS ---
APPROVED REPORT Patient Location: Outpatient PROCEDURES Left heart catheterization Left ventriculogram Selective coronary angiogram Bilateral selective renal angiogram Drug-eluting stent deployment to the proximal circumflex artery with additional stenting extending into the first obtuse marginal artery INDICATION Coronary artery disease, Angina pectoris, Abnormal noninvasive cardiac testing, Hypertension suspect renovascular hypertension, Informed consent was obtained prior to the procedure. COMPLICATIONS NONE Estimated Blood Loss: LESS THAN 10 ML TECHNIQUE One percent lidocaine used to anesthetize the right anterior aspect of the wrist. The right radial artery was accessed via the Seldinger technique. A 6 Hungarian sheath was placed in the right radial artery. 2.5 mg of Verapamil, 800 mcg of nitroglycerin, 1mg Lidocaine and 5000 U Heparin were given through the arterial sheath. The papa catheter was also used to perform left heart catheterization, left ventriculogram and selective coronary angiogram. At the end the diagnostic angiogram therapeutic heparin was administered giving a therapeutic ACT and the guide catheter was placed in left main artery followed by Choice PT extra-support wire placed down the circumflex artery. 3.5 x 18 mm [place] frontier stent was deployed at 16 wil reducing the stenosis. There was a residual calcification which required additional reduction therefore 3.5 x 8 mm noncompliant balloon was deployed at 24 wil to further post dilate. Additional stenoses were identified in the first obtuse marginal artery therefore 3 mm x 26 mm [place] frontier stent was placed distal to the for stent yet still overlapping and deployed at 14 wil. The balloon was brought back and deployed at 24 wil to mesh the 2 stents. JACKSON-3 flow was present before and after the procedure. At the end the procedure the apparatus was removed from the coronary arteries and bilateral selective renal angiography was performed. Following this the apparatus was removed the sheath was removed and hemostasis was achieved using TR banding patient was transferred to the postop putting in stable condition ANGIOGRAPHIC RESULTS The left main artery Normal The left anterior descending artery Has proximal 30% stenosis with additional 30 to 40% stenoses The circumflex artery Large with a proximal concentric calcified stenosis with additional 30 and 40% stenoses in the first obtuse marginal artery The right coronary artery Proximally occluded with the distal vessel filling via [id number] collaterals The RODRIGUES ventriculogram reveals Not performed The left ventricular end-diastolic pressure 15 mmHg Right renal artery singular normal Left renal artery singular normal IMPRESSION Coronary disease as described above Successful stenting of a severely diseased circumflex artery which provides [id number] collaterals to a chronically occluded right coronary. Severe disease reduced to less than 10% with 2 drug-eluting stents with additional stenting extending into the first obtuse marginal artery Normal LVEDP Normal renal arteries bilaterally PLAN 1. Dual antiplatelet therapy 2. Cardiac rehabilitation 3. Tighter control of hypertension 4. LDL less than 55 to be achieved high intensity statin 5. Avoidance of tobacco products Electronically signed by : Silvio Call MD 10/13/2023 13:17:08
[2023-10-12 10:03] LABS: Basophils # 0.1 K/mm3 (0-0.2); Basophils % 1.1 % (0.1-2.0); Eosinophils # 0.1 K/mm3 (0.0-0.4); Eosinophils % 1.2 % (0.1-12.0); Hematocrit 44.5 % (37.0-47.0); Hemoglobin 14.1 g/dL (12.2-16.2); Lymphocytes # 1.9 K/mm3 (0.7-4.5); Lymphocytes % 29.8 % (10-50); Mean Corpuscular HGB Conc 31.7 g/dL (31.8-35.4); Mean Corpuscular Hemoglobin 28.7 pg (27.0-31.2); Mean Corpuscular Volume 90.6 fl (81-99); Mean Platelet Volume 7.3 fl (7.4-10.4); Monocytes # 0.5 K/mm3 (0.1-1.0); Neutrophils # 3.8 K/mm3 (1.8-7.8); Neutrophils % 59.9 % (37.0-80.0); Platelet Count 281 K/mm3 (142-424); Red Blood Count 4.91 M/mm3 (4.20-5.40); Red Cell Distribution Width 14.7 % (11.5-17.5); White Blood Count 6.4 K/mm3 (4.8-10.8)
[2023-10-12 10:05] LABS: Chloride 102 mmol/L (98-107); Potassium 4.3 mmoL/L (3.5-5.1); Sodium 138 mmol/L (136-145)
[2023-10-12 10:08] LABS: Anion Gap 10.3 mEq/L (5-15); Blood Urea Nitrogen 11 mg/dl (7-17); Carbon Dioxide 30 mmol/L (22.0-30.0); Creatinine Clearance Estimated 52 mL/min (50-200); Estimated Glomerular Filt Rate 63 ml/min (>60); GFR (African American) 76 ML/MIN (>60)
[2023-10-12 10:09] LABS: Calcium 9.5 mg/dl (8.4-10.2); Glucose 99 mg/dl (74-100)
[2023-10-12] MEDS: 0.9 % SODIUM CHLORIDE 500 ML 25 ML IV (11:11)
[2023-10-12] MEDS: LIDOCAINE 1% 10ML MDV 20 ML IJ (11:11)
[2023-10-12] MEDS: HEPARIN 1,000 UNITS/ML 10ML VIAL (CATH LAB) 10000 UNIT IV ×2 (11:11→11:42)
[2023-10-12] MEDS: HEPARIN 1,000 UNITS/500ML NS (CATH LAB) 3000 UNIT IV (11:11)
[2023-10-12] MEDS: NITROGLYCERIN 800MCG/8ML SYR (CATH LAB) 800 MCG IA ×2 (11:12→11:52)
[2023-10-12] MEDS: diphenhydrAMINE 50MG/ML VIAL 50 MG IV (11:12)
[2023-10-12] MEDS: VERAPAMIL 2.5MG/ML 2ML VIAL 2.5 MG IV (11:12)
[2023-10-12] MEDS: MIDAZOLAM HCL 1MG/1ML 5ML VIAL 1 MG IV (11:56)
[2023-10-12] MEDS: FENTANYL 100MCG/2ML VIAL 50 MCG IV (11:56)
[2023-10-12] MEDS: CLOPIDOGREL 300MG TABLET 600 MG PO (12:03)
[2023-10-12] MEDS: IOPAMIDOL-370 (76%);100ML BOTTLE 90 ML IV (12:12)
[2023-10-12 12:13] LABS: CATHL Activated Clotting Time 353 SEC (74-125)
== END 2023-10-12 15:25 | disposition home or self-care (01) ==
PROVIDERS: PCP Internal Medicine Adolescent Medicine; Visit Provider Internal Medicine
DX: I25.118 Atherosclerotic heart disease of native coronary artery with other forms of angina pectoris (principal); I70.1 Atherosclerosis of renal artery; R06.02 Shortness of breath; R93.1 Abnormal findings on diagnostic imaging of heart and coronary circulation; R94.31 Abnormal electrocardiogram [ECG] [EKG]; E78.2 Mixed hyperlipidemia; I10 Essential (primary) hypertension; F17.210 Nicotine dependence, cigarettes, uncomplicated; Z79.899 Other long term (current) drug therapy; J44.9 Chronic obstructive pulmonary disease, unspecified
CPT/HCPCS: 36252; 80048; 85025; 85347; 92928; 93458; 99152; C1725; C1769; C1874; C9600; J1644; J2250; J3010; Q9967

== ENCOUNTER 2024-01-28 21:02 | Emergency (ER) | payer OTHER, SELFPAY ==
--- NOTE | 2024-01-28 21:10 | ED_ITS ---
Discharge Plan Disposition Patient Disposition: Xfer Other Prescriptions Prescriptions: No Action atorvastatin 40 mg tablet 80 mg PO DAILY famotidine 20 mg tablet 20 mg PO HS aspirin 81 mg tablet,chewable 1 tab PO DAILY pantoprazole 40 mg tablet,delayed release (DR/EC) 40 mg PO DAILY metoprolol succinate 100 mg tablet extended release 24 hr 150 mg PO HS 90 Days Qty: 135 3RF azelastine 137 mcg (0.1 %) aerosol,spray 2 spray intranasal .COMPLEX Qty: 30 3RF Rx Instructions: 2 sprays intranasally at bedtime for 90days; administer into each nostril tiotropium bromide [Spiriva with HandiHaler] 18 mcg capsule, w/inhalation device 1 cap inhalation DAILY 90 Days Qty: 90 3RF Rx Instructions: puncture 1 cap using device; one dose = 2 inhalations amlodipine [Norvasc] 10 mg tablet 10 mg PO DAILY Qty: 90 2RF fluticasone furoate-vilanterol [Breo Ellipta] 100-25 mcg/dose blister with device See Rx Instructions .ROUTE .COMPLEX Qty: 60 0RF Dose Instruction: INHALE 1 PUFF BY MOUTH ONCE A DAY Rx Instructions: INHALE 1 PUFF BY MOUTH ONCE A DAY albuterol sulfate 90 mcg/actuation HFA aerosol inhaler See Rx Instructions .ROUTE .COMPLEX Qty: 8.5 0RF Dose Instruction: INHALE 2 PUFFS BY MOUTH FOUR TIMES A DAY NEEDED FOR SHORTNESS OF BREATH OR WHEEZING Rx Instructions: INHALE 2 PUFFS BY MOUTH FOUR TIMES A DAY NEEDED FOR SHORTNESS OF BREATH OR WHEEZING clopidogrel [Plavix] 75 mg Tablet 75 mg PO DAILY Qty: 90 4RF diphenhydramine HCl 25 MG tablet 25 mg PO NEEDED PRN (Reason: ALLERGIES) montelukast 10 MG tablet 10 mg PO HS PRN (Reason: ALLERGIES) fluticasone propionate [Flonase Allergy Relief] 50 spray,suspension 2 spry NOSTRIL-B DAILY PRN (Reason: ALLERGIES) levocetirizine 5 MG tablet 5 mg PO HS PRN (Reason: ALLERGIES) ondansetron 4 mg tablet,disintegrating 4 mg PO Q8H PRN (Reason: nausea and vomiting) 4 Days Qty: 12 0RF nystatin 100,000 unit/mL suspension 5 ml PO QID 10 Days Qty: 200 0RF Rx Instructions: swish and swallow citalopram [Celexa] 40 mg Tablet 40 mg PO DAILY cetirizine 10 mg Tablet 10 mg PO DAILY hydroxyzine pamoate [Vistaril] 25 mg Capsule 25 mg PO TID PRN (Reason: ANXIETY ) lisinopril-hydrochlorothiazide 20-25 mg tablet 1 tab PO DAILY Referrals Follow up/Referrals: Jluis Marie MD [Primary Care Provider] - See instructions Clinical Impressions Clinical Impression: Stroke-like symptoms Symptomatic vertebral artery stenosis without infarction Qualifiers: Laterality: bilateral Qualified Code(s): I65.03 - Occlusion and stenosis of bilateral vertebral arteries Stand Alone Forms Stand Alone Forms: Transfer Record - ED Print Language Print Language: Mosotho Discharge ED Provider: Svetlana Martinez General Adult HPI General Chief complaint: Neuro Symptoms/Deficit Stated complaint: high bp, weakness, slurred speech Time Seen by Provider: 01/28/24 21:10 History of Present Illness HPI narrative: Amy Loredo is a 63 y/o female presenting with stroke like symptoms. Patient presents with family secondary to concerns of stroke. Patient is experiencing difficulty speaking as well as right-sided weakness. Per family at bedside, patient's significant other had noted right arm numbness at 4 PM. Family took patient's blood pressure after her right arm became numb and was found to have significant hypertension with systolics in the 200s. Family decided to observe the patient, however patient's symptoms continued to worsen and progressed to include difficulty with speech, facial asymmetry, right upper and lower extremity weakness. Patient has history of CAD with cardiac stents. Patient takes aspirin and statin. Patient denies history of CVA. Related Data Home Medications ?Medication ?Instructions ?Recorded ?Confirmed diphenhydramine HCl 25 mg tablet 25 mg PO NEEDED PRN ALLERGIES 02/26/19 10/26/23 fluticasone propionate 50 2 spry NOSTRIL-B DAILY PRN 02/26/19 10/26/23 mcg/actuation nasal ALLERGIES spray,suspension (Flonase Allergy Relief) levocetirizine 5 mg tablet 5 mg PO HS PRN ALLERGIES 02/26/19 10/26/23 montelukast 10 mg tablet 10 mg PO HS PRN ALLERGIES 02/26/19 10/26/23 pantoprazole 40 mg tablet,delayed 40 mg PO DAILY 06/26/20 10/26/23 release atorvastatin 40 mg tablet 80 mg PO DAILY 08/19/23 10/26/23 famotidine 20 mg tablet 20 mg PO HS 08/19/23 10/26/23 aspirin 81 mg chewable tablet 1 tab PO DAILY 09/21/23 10/26/23 cetirizine 10 mg tablet 10 mg PO DAILY 09/29/23 10/26/23 citalopram 40 mg tablet (Celexa) 40 mg PO DAILY 09/29/23 10/26/23 hydroxyzine pamoate 25 mg capsule 25 mg PO TID PRN ANXIETY 09/29/23 10/26/23 (Vistaril) lisinopril 20 1 tab PO DAILY High blood pressure 09/29/23 10/26/23 mg-hydrochlorothiazide 25 mg tablet Previous Rx's ?Medication ?Instructions ?Recorded nystatin 100,000 unit/mL oral 5 ml PO QID Thrush 10 days #200 mL 06/20/23 suspension ondansetron 4 mg disintegrating 4 mg PO Q8H PRN nausea and 06/20/23 tablet vomiting 4 days #12 tabs azelastine 137 mcg (0.1 %) nasal 2 spray intranasal .COMPLEX 08/10/23 spray Allergic Rhinitis #30 mL tiotropium bromide 18 mcg capsule 1 cap inhalation DAILY 90 days #90 08/26/23 with inhalation device (Spiriva puffs with HandiHaler) clopidogrel 75 mg tablet (Plavix) 75 mg PO DAILY #90 tabs 10/12/23 metoprolol succinate 100 mg 150 mg (1.5 x 100 mg) PO HS High 10/26/23 tablet,extended release 24 hr blood pressure 90 days #135 tabs amlodipine 10 mg tablet (Norvasc) 10 mg PO DAILY #90 tabs 11/17/23 albuterol sulfate 90 mcg/actuation See Rx Instructions .Route 01/20/24 aerosol inhaler .COMPLEX #8.5 grams fluticasone furoate 100 See Rx Instructions .Route 01/20/24 mcg-vilanterol 25 mcg/dose .COMPLEX #60 blisters inhalation powder (Breo Ellipta) Allergies Allergy/AdvReac Type Severity Reaction Status Date / Time No Known Allergies Allergy Verified 10/26/23 08:48 PFSH [facility] Disclaimer: The information contained in this section may have been updated after the patient was seen, as this information can be updated by other users. Medical History (Updated 01/28/24 @ 23:13 by Svetlana Martinez MD) Renal artery stenosis Abnormal findings on diagnostic imaging of heart and coronary circulation Hyperlipidemia Hypertension Screening for lung cancer Smoking greater than 30 pack years Dyspnea on exertion Tobacco abuse disorder Tobacco abuse counseling COPD (chronic obstructive pulmonary disease) Dyspnea on exertion Surgical History (Updated 10/26/23 @ 08:48 by Juana Selby) S/P cardiac cath History of total hysterectomy History of colonoscopy Family History Other No significant family history Social History Smoking Status: Current every day smoker tobacco type: cigarettes packs per day: 1 alcohol intake: never substance use type: denies use current occupational status: disabled Travel in the last 8 weeks: None ROS Obtained: Yes All systems reviewed & no additional complaints except as documented Physical Exam General General appearance: alert and in no apparent distress Head Head exam: atraumatic Eye Eye exam: Present PERRL and EOMI; Absent scleral icterus ENT ENT exam: Present normal exam Respiratory Respiratory exam: Present normal lung sounds bilaterally Cardiovascular Cardiovascular exam: Present regular rate and normal rhythm Abdominal Exam Abdominal exam: Present soft; Absent distention or tenderness Extremities Exam Extremities exam: Present full ROM; Absent tenderness or edema Neurological Exam Neurological exam: Present alert and oriented X3 Expanded Neurological Exam Speech: Present expressive aphasia Cranial nerves: Abnormal Right: facial palsy (VII) Cerebellar function: ataxic gait Motor strength - LUE: 5/5 Motor strength - RUE: 3/5 Motor strength - LLE: 5/5 Motor strength - RLE: 3/5 Skin Skin exam: Present warm and dry Medical Decision Making Medical Records Screening: Per USPSTF and CDC recommendations, given the prevalence of disease in our region, it is our hospital?s policy to screen for HIV and viral Hepatitis for all patients aged 18 and over and those with ongoing risk factors. Rubio Inquiry Pt receiving controlled substance: No Vital Signs: 01/28/24 21:13 01/28/24 21:31 01/28/24 22:01 Temperature 97.6 F Temperature Source Oral Pulse Rate 82 Pulse Rate [Right Radial] 110 H Respiratory Rate 16 22 Blood Pressure 141/64 H 120/88 Blood Pressure [Right Arm] 161/108 H Blood Pressure Mean Blood Pressure Mean [Right Arm] 125 Blood Pressure Source [Right Arm] Automatic Cuff Blood Pressure Position [Right Arm] Supine 02 Sat by Pulse Oximetry 97 96 Oxygen Delivery Method 01/28/24 22:30 01/28/24 23:00 01/28/24 23:30 Temperature Temperature Source Pulse Rate 73 Pulse Rate [Right Radial] Respiratory Rate 17 14 16 Blood Pressure 164/79 H 168/107 H 185/82 H Blood Pressure [Right Arm] Blood Pressure Mean 100 Blood Pressure Mean [Right Arm] Blood Pressure Source [Right Arm] Blood Pressure Position [Right Arm] 02 Sat by Pulse Oximetry 95 Oxygen Delivery Method Room Air Lab Data Lab Results 01/28/24 21:31: WBC 5.9, RBC 4.18 L, Hgb 12.1 L, Hct 38.6, MCV 92.3, MCH 29.0, M CHC 31.4 L, RDW 14.7, Plt Count 239, MPV 6.5 L, Neut % (Auto) 67.0, Lymph % (Auto) 25.7, [place] % (Auto) 5.3, Eos % (Auto) 1.5, Baso % (Auto) 0.4, Neut # (Auto) 4.0, Lymph # (Auto) 1.5, [place] # (Auto) 0.3, Eos # (Auto) 0.1, Baso # (Auto) 0.0, PT 11.3, INR 1.01, APTT 32.9 H, Sodium 133 L, Potassium 3.7, Chloride 104, Carbon Dioxide 26, Anion Gap 6.7, BUN 9, Creatinine 0.70, Estimated Creat Clear 53, Estimated GFR 84, Est GFR ( Amer) 102, Glucose 121 H, Calcium 8.5, Total Bilirubin 0.4, AST 20, ALT 14, Alkaline Phosphatase 83, Troponin I < 0.01, Total Protein 6.3, Albumin 3.6, Globulin 2.7, Albumin/Globulin Ratio 1.3, Triglycerides 129, Cholesterol 227 H, LDL Cholesterol Direct 150.11 H, VLDL Cholesterol 26, HDL Cholesterol 32 L, C holesterol/HDL Ratio 7.1 H, Plasma/Serum Alcohol < 10 01/28/24 21:52: Urine Color Yellow, Urine Appearance Clear, Urine pH 7.5, Ur Specific [place] <= 1.005, Urine Protein Negative, Urine Glucose (UA) Negative, Urine Ketones Negative, Urine Blood Negative, Urine Nitrate Negative, Urine Bilirubin Negative, Urine Urobilinogen 0.2, Ur Leukocyte Esterase Negative, Ur Squamous Epith Cells Occasional, Urine Opiates Screen Negative, Urine Methadone Screen Negative, Ur Barbituates Screen Negative, Ur Phencyclidine Scrn Negative, Ur Amphetamines Screen Negative, U Benzodiazepines Scrn Negative, Urine Cocaine Screen Negative, U Marijuana (THC) Screen Negative 01/28/24 21:31 01/28/24 21:31 Orders (Tests/Meds): ED MEDICATIONS Generic Name Dose Route Start Last Admin Trade Name Freq PRN Reason Stop Dose Admin Sodium Chloride 10 ml 01/28/24 21:11 Sodium Chloride 0.9% 10ml Flush Syringe IV 02/27/24 21:10 NEEDED PRN Maintain IV Site Sodium Chloride 10 ml 01/28/24 21:24 01/28/24 21:25 Sodium Chloride 0.9% 10ml Syr (Rad Only) IV 02/27/24 21:23 10 ml NEEDED PRN Administration Maintain IV Site Discontinued Medications Generic Name Dose Route Start Last Admin Trade Name Freq PRN Reason Stop Dose Admin Clopidogrel Bisulfate 600 mg 01/28/24 23:11 01/28/24 23:16 Clopidogrel 300mg Tablet PO 01/28/24 23:12 600 mg ONCE ONE Administration Iopamidol 80 ml 01/28/24 21:24 01/28/24 21:25 Iopamidol-370 (76%);100ml Bottle IV 01/28/24 21:25 80 ml ONCE ONE Administration Sodium Chloride 50 ml 01/28/24 21:24 01/28/24 21:25 0.9 % Sodium Chloride 50 Ml Vial IV 01/28/24 21:25 50 ml ONCE ONE Administration ORDERS Category Date Time Status CT angio head Stat Cat Scan 01/28/24 21:[address] angio neck Stat Cat Scan 01/28/24 21:[address] head/brain wo con Stat Cat Scan 01/28/24 21:11 Completed Activated Partial Thrombo Time Stat Lab 01/28/24 21:31 Completed Complete Blood Count Auto Diff Stat Lab 01/28/24 21:31 Completed Comprehensive Metabolic Panel Stat Lab 01/28/24 21:31 Completed Drug Screen,Urine Stat Lab 01/28/24 21:52 Completed Ethyl Alcohol Stat Lab 01/28/24 21:31 Completed HIV (1&2) Antibody Rapid Stat Lab 01/28/24 21:31 Received Hep C Ab with Reflex to RNA Stat Lab 01/28/24 21:31 Received Lipid Panel Stat Lab 01/28/24 21:31 Completed Prothrombin Time INR Stat Lab 01/28/24 21:31 Completed Troponin I Q3H Lab 01/29/24 00:15 Ordered Troponin I Q3H Lab 01/29/24 03:15 Ordered Troponin I Stat Lab 01/28/24 21:31 Completed Urinalysis and Microscopic Stat Lab 01/28/24 21:52 Completed ECG Data Tracing #1: Sinus rhythm with a rate of 82. No QTc prolongation, no significant ST elevation/depression or evidence of acute ischemia or arrhythmia. ECG initial impression date: 01/28/24 ECG initial impression time: 21:32 Medical Decision Narrative: Patient is a 63-year-old female presenting with stroke-like symptoms. Differential diagnosis includes but is not limited to ischemic stroke, embolic stroke, intracranial hemorrhage, vascular stenosis, migraine, among others. Labs and imaging performed to adequately assess the differential diagnoses listed above. It should be noted that the patient's comorbidities include COPD not requiring home oxygen, hypertension, as well as CAD with cardiac stents on aspirin and statin without additional blood thinners. These comorbidities increased risk for patient mortality and exacerbate symptoms. As soon as patient was placed in exam room, nursing notified me of patient's presenting complaint and I promptly evaluated her. Given the fact that the patient's symptoms started at 1600 this afternoon, patient presented outside of the TNK window. Patient was still in the thrombectomy window so she was made a stroke alert. IV access was obtained and patient emergently taken to the CT scanner. Initial NIH on my exam was 8. Laboratory evaluation personally reviewed by me and significant for slight anemia with hemoglobin of 12.1, no leukocytosis, no thrombocytopenia. CMP unremarkable. Cholesterol elevated at 227 and LDL elevated at 150. Urinalysis negative for acute cystitis. CT imaging personally reviewed by me and did not demonstrate acute infarct or hemorrhage on the CT head without contrast. I had an interactive discussion with radiology who confirmed severe stenosis of bilateral vertebral arteries as well as significant occlusion in the left ICA. On reevaluation of the patient, her symptoms persisted. Patient and family were given the results of her imaging and advised that transfer to a center that had inpatient neurology was recommended. Patient and family agreeable to transfer. I initially contacted [facility] for transfer, however their service was only excepting interventional candidate at this time. I then contacted for transfer and they remain on divert except for specific procedural and trauma patients. After being denied by [facility] and , I contacted [facility] in [place] and had an interactive discussion with Dr. Liao who agreed to accept the patient to the hospitalist service. He also recommended giving the patient a Plavix load of 600 mg which was ordered and given prior to transfer. I then had an interactive discussion with the hospitalist, Dr. Petit who accepted the patient. BLS transport arranged. Svetlana Martinez MD PGY-3, Emergency Medicine Critical Care Critical Care Time Critical Care Time: No
--- NOTE | 2024-01-28 21:11 | CT_ITS ---
PROCEDURE INFORMATION: Exam: CTA Head With Contrast, Arteriography Exam date and time: 01/28/2024 9:24 PM Age: 63 years old Clinical indication: Stroke-like symptoms; Altered mental status/memory loss and speech disturbance; Additional info: Possible stroke TECHNIQUE: Imaging protocol: Computed tomographic angiography of the head with contrast. Exam focused on the arteries. 3D rendering (Not supervised by radiologist): MIP and/or 3D reconstructed images were created by the technologist. Radiation optimization: All CT scans at this facility use at least one of these dose optimization techniques: automated exposure control; mA and/or kV adjustment per patient size (includes targeted exams where dose is matched to clinical indication); or iterative reconstruction. Contrast material: ISOVUE; Contrast volume: 80 ml; Contrast route: INTRAVENOUS (IV); COMPARISON: CT HEAD/BRAIN WO CON 01/28/2024 9:20 PM FINDINGS: ANTERIOR CIRCULATION: Right internal carotid artery: Mild calcification involving the right carotid siphon without significant stenosis. Right middle cerebral artery: No occlusion or significant stenosis. No aneurysm. Right anterior cerebral artery: No occlusion or significant stenosis. No aneurysm. Left internal carotid artery: Calcification involving the left carotid siphon without significant stenosis. Left middle cerebral artery: No occlusion or significant stenosis. No aneurysm. Left anterior cerebral artery: No occlusion or significant stenosis. No aneurysm. POSTERIOR CIRCULATION: Right vertebral artery: No occlusion or significant stenosis. No aneurysm. Left vertebral artery: No occlusion or significant stenosis. No aneurysm. Basilar artery: No occlusion or significant stenosis. No aneurysm. Right posterior cerebral artery: No occlusion or significant stenosis. No aneurysm. Left posterior cerebral artery: See Left posterior communicating artery finding. Left posterior communicating artery: Patent left posterior communicating artery with hypoplastic left P1 segment. IMPRESSION: No hemodynamically significant stenosis or large vessel occlusion.
--- NOTE | 2024-01-28 21:11 | CT_ITS ---
PROCEDURE INFORMATION: Exam: CTA Neck With Contrast Exam date and time: 01/28/2024 9:24 PM Age: 63 years old Clinical indication: Stroke-like symptoms; Altered mental status/memory loss and speech disturbance; Additional info: Possible stroke TECHNIQUE: Imaging protocol: Computed tomographic angiography of the neck with contrast. Exam focused on the cervical segments of the vasculature. 3D rendering (Not supervised by radiologist): MIP and/or 3D reconstructed images were created by the technologist. Radiation optimization: All CT scans at this facility use at least one of these dose optimization techniques: automated exposure control; mA and/or kV adjustment per patient size (includes targeted exams where dose is matched to clinical indication); or iterative reconstruction. Contrast material: ISOVUE; Contrast volume: 80 ml; Contrast route: INTRAVENOUS (IV); COMPARISON: CT ANGIO NECK 01/28/2024 9:24 PM FINDINGS: Right common carotid artery: Calcification and atheromatous irregularity involving the right common carotid artery. No significant stenosis. Right internal carotid artery: Calcification at the proximal right internal carotid artery. No significant stenosis. Right external carotid artery: No occlusion or stenosis of the origin. Left common carotid artery: Calcification and atheromatous irregularity involving the left common carotid artery. Stenosis measures less than 50%. Left internal carotid artery: Atheromatous plaquing of the proximal left internal carotid artery. Stenosis measures 75%. Left external carotid artery: No occlusion or stenosis of the origin. Right vertebral artery: Severe stenosis of the proximal right vertebral artery. [id number] right vertebral artery V2 stenosis. Left vertebral artery: Left vertebral artery is dominant. Severe stenosis at the origin of the left vertebral artery. Aorta: Aortic calcification. Soft tissues: Normal. No significant soft tissue swelling. Bones/joints: Degenerative change involving the spine. IMPRESSION: 1. 75% stenosis at the origin of the left ICA. 2. Severe stenosis at the origin of the left vertebral artery. 3. Severe stenosis of the proximal right vertebral artery. 4. Additional findings as above. REFERENCES: NASCET CRITERIA. The degree of stenosis in the cervical segment of the internal carotid artery is based on NASCET criteria. Normal is no stenosis. Mild is less than 50% stenosis. Moderate is 50-69% stenosis. Severe is 70% to 99% stenosis. Total occlusion is no detectable patent lumen.
--- NOTE | 2024-01-28 21:11 | CT_ITS ---
PROCEDURE INFORMATION: Exam: CT Head Without Contrast Exam date and time: 01/28/2024 9:20 PM Age: 63 years old Clinical indication: Stroke-like symptoms; Altered mental status/memory loss and speech disturbance; Additional info: Possible stroke TECHNIQUE: Imaging protocol: Computed tomography of the head without contrast. Radiation optimization: All CT scans at this facility use at least one of these dose optimization techniques: automated exposure control; mA and/or kV adjustment per patient size (includes targeted exams where dose is matched to clinical indication); or iterative reconstruction. Other technique: STROKE PROTOCOL was implemented. COMPARISON: No relevant prior studies available. FINDINGS: Brain: Chronic lacunar infarcts at the bilateral basal ganglia. No acute intracranial hemorrhage. No midline shift or significant intracranial mass effect. No cerebral edema. Cerebral ventricles: No hydrocephalus. Paranasal sinuses: Mild sphenoid sinus disease. Mastoid air cells: Visualized mastoid air cells are well aerated. Bones: Unremarkable. No acute fracture. Soft tissues: Unremarkable. IMPRESSION: No acute intracranial abnormality. ASSESSMENT: ASPECTS (Lauren Stroke Program Early CT Score) is 10.
[2024-01-28 21:13] VITALS: BP 161/108; PULSE 110; RESP 16; TEMP 36.4; O2SAT 97; BMI 22.3
[2024-01-28] MEDS: IOPAMIDOL-370 (76%);100ML BOTTLE 80 ML IV (21:25)
[2024-01-28] MEDS: 0.9 % SODIUM CHLORIDE 50 ML VIAL IV (21:25)
[2024-01-28] MEDS: SODIUM CHLORIDE 0.9% 10ML SYR (RAD ONLY) 10 ML IV (21:25)
[2024-01-28 21:31] VITALS: BP 141/64; PULSE 82; O2SAT 96
--- NOTE | 2024-01-28 21:31 | ECG_ITS ---
APPROVED REPORT Exam: Resting ECG HR:82 bpm ECG Measurements Heart Rate 82 AXES LA 190 P 67 QRSd 89 QRS 71 QT 381 T 81 QTc 419 Conclusion SINUS RHYTHM MINIMAL ST DEPRESSION [0.025+ mV ST DEPRESSION] BORDERLINE ECG Electronically signed by : LEONOR PALMER, 01/29/2024 21:11:08
[2024-01-28 21:40] LABS: Basophils % 0.4 % (0.1-2.0); Eosinophils # 0.1 K/mm3 (0.0-0.4); Eosinophils % 1.5 % (0.1-12.0); Hematocrit 38.6 % (37.0-47.0); Hemoglobin 12.1 g/dL (12.2-16.2); Lymphocytes # 1.5 K/mm3 (0.7-4.5); Lymphocytes % 25.7 % (10-50); Mean Corpuscular HGB Conc 31.4 g/dL (31.8-35.4); Mean Corpuscular Volume 92.3 fl (81-99); Mean Platelet Volume 6.5 fl (7.4-10.4); Monocytes # 0.3 K/mm3 (0.1-1.0); Monocytes % 5.3 % (1.7-9.3); Platelet Count 239 K/mm3 (142-424); Red Blood Count 4.18 M/mm3 (4.20-5.40); Red Cell Distribution Width 14.7 % (11.5-17.5); White Blood Count 5.9 K/mm3 (4.8-10.8)
[2024-01-28 21:46] LABS: Albumin Level 3.6 g/dl (3.5-5.0); Chloride 104 mmol/L (98-107); Sodium 133 mmol/L (136-145)
[2024-01-28 21:47] LABS: Potassium 3.7 mmoL/L (3.5-5.1)
[2024-01-28 21:49] LABS: Alanine Aminotransferase 14 U/L (12-78); Albumin/Globulin Ratio 1.3 (1.1-1.8); Anion Gap 6.7 mEq/L (5-15); Aspartate Amino Transferase 20 U/L (14-36); Blood Urea Nitrogen 9 mg/dl (7-17); Carbon Dioxide 26 mmol/L (22.0-30.0); Creatinine Clearance Estimated 53 mL/min (50-200); Estimated Glomerular Filt Rate 84 ml/min (>60); GFR (African American) 102 ML/MIN (>60); Globulin 2.7 g/dL (1.3-3.2); Total Protein,Serum 6.3 g/dl (6.3-8.2)
[2024-01-28 21:50] LABS: Alkaline Phosphatase 83 U/L (38-126); Bilirubin,Total 0.4 mg/dl (0.2-1.3); Calcium 8.5 mg/dl (8.4-10.2); Chol/HDL Ratio 7.1 (1-3.5); Cholesterol 227 mg/dl (140-200); Glucose 121 mg/dl (74-100); HDL Cholesterol 32 mg/dl (40-60); Triglycerides 129 mg/dl (30-150); VLDL Cholesterol 26 mg/dL (0-40)
[2024-01-28 21:52] LABS: Activated Partial Thrombo Time 32.9 seconds (22.8-30.6); INR 1.01 (0.9-1.1); Prothrombin Time 11.3 seconds (10.1-12.5)
[2024-01-28 21:58] LABS: Microscopic, Urine URINE MICROSCOPIC (MICROSCOPIC)
[2024-01-28 22:00] LABS: Appearance,Urine CLEAR (Clear); Bilirubin,Urine Negative (Negative); Blood, Urine Negative (Negative); Color,Urine YELLOW (Yellow); Glucose,Urine (UA) Negative (Negative); Ketones,Urine Negative (Negative); Leukocyte Esterase,Urine Negative (Negative); Nitrate,Urine Negative (Negative); PH,Urine 7.5 (5.0-8.5); Protein,Urine Negative (Negative); Specific Gravity, Urine <= 1.005 (1.005-1.030); Urobilinogen,Urine 0.2 EU/dl (0.2)
[2024-01-28 22:01] VITALS: BP 120/88; RESP 22
[2024-01-28 22:01] LABS: Direct LDL Cholesterol 150.11 mg/dL (100-129)
[2024-01-28 22:03] LABS: Ethyl Alcohol < 10 mg/dl (0-10)
[2024-01-28 22:05] LABS: Troponin I < 0.01 ng/ml (0.00-0.034)
[2024-01-28 22:05] LABS: Squamous Epithelial Cell,Urine Occasional #/hpf (0-5)
[2024-01-28 22:14] LABS: Barbiturates Screen,Urine Negative ng/ml (<200)
[2024-01-28 22:15] LABS: Amphetamine/Metha Screen,Urine Negative ng/ml (<1000); Benzodiazepines Screen,Urine Negative ng/ml (<200)
[2024-01-28 22:16] LABS: Cannabinoid Screen,Urine Negative ng/ml (<50)
[2024-01-28 22:17] LABS: Cocaine Screen,Urine Negative ng/ml (<300); Methadone Screen,Urine Negative ng/ml (<300)
[2024-01-28 22:18] LABS: Opiate Screen,Urine Negative ng/ml (<300)
[2024-01-28 22:19] LABS: Phencyclidine Screen,Urine Negative ng/ml (<25)
[2024-01-28 22:30] VITALS: BP 164/79; PULSE 73; RESP 17; O2SAT 95
--- NOTE | 2024-01-28 22:32 | PC.NURSE ---
[facility] unable to accept. Dr Martinez speaking to [facility] at this time
--- NOTE | 2024-01-28 22:37 | PC.NURSE ---
[facility] declined. Calling [facility] now
--- NOTE | 2024-01-28 22:47 | PC.NURSE ---
Radhaheet sent to [facility] and awaiting their call back
[2024-01-28 23:00] VITALS: BP 168/107; RESP 14
--- NOTE | 2024-01-28 23:02 | PC.NURSE ---
[facility] called back requesting the face sheet. I refaxed again with another confirmation. They stated they will need the facesheet before the providers can speak
[2024-01-28] MEDS: CLOPIDOGREL 300MG TABLET 600 MG PO (23:16)
--- NOTE | 2024-01-28 23:16 | PC.NURSE ---
verified meds with [facility]
--- NOTE | 2024-01-28 23:22 | PC.NURSE ---
Provider speaking to Dr. Marshall at [facility]
--- NOTE | 2024-01-28 23:25 | PC.NURSE ---
Accepted by Dr. Petit at [facility]
[2024-01-28 23:30] VITALS: BP 185/82; RESP 16
--- NOTE | 2024-01-28 23:39 | PC.NURSE ---
Report given to Kenzie on 5A at [facility]
[2024-01-29] VITALS: BP 183/84; RESP 20
[2024-01-29 00:31] VITALS: BP 161/112; RESP 22
[2024-01-29 01:00] VITALS: BP 154/63; RESP 21
[2024-01-29 01:30] VITALS: BP 172/84; PULSE 74; RESP 16; TEMP 36.6; O2SAT 98
[2024-01-29 08:06] LABS: HIV (1&2) Antibody Rapid NONREACTIVE (NONREACTIVE)
[2024-01-30 08:11] LABS: HCV Ab Non Reactive (Non Reactive)
== END 2024-01-29 01:30 | disposition other institution (70) ==
PROVIDERS: Emergency Provider Student in an Organized Health Care Education/Training Program; PCP Internal Medicine Adolescent Medicine
DX: R47.89 Other speech disturbances (principal); R29.810 Facial weakness; R29.818 Other symptoms and signs involving the nervous system; I65.03 Occlusion and stenosis of bilateral vertebral arteries; I10 Essential (primary) hypertension; E78.5 Hyperlipidemia, unspecified; Z95.5 Presence of coronary angioplasty implant and graft; F17.210 Nicotine dependence, cigarettes, uncomplicated; J44.9 Chronic obstructive pulmonary disease, unspecified
CPT/HCPCS: 70450; 70496; 70498; 80053; 80061; 80307; 80320; 81001; 84484; 85025; 85610; 85730; 86803; 87389; 93005; 99285; G0480; Q9967

== ENCOUNTER 2024-04-13 15:00 | Outpatient (RCR) | payer OTHER, SELFPAY ==
--- NOTE | 2024-02-24 06:55 | HMH.PTOPEV ---
PT Outpatient Evaluation Rehab PT Outpatient Evaluation Start: 02/23/24 09:59 Freq: Status: Active Protocol: Document 02/23/24 09:59 RIVER (Rec: 02/23/24 13:47 RIVER [id number]) E-signed By Joy Reeder, PT Outpatient Therapy Subjective History Subjective History This is an initial PT evaluation for 63 y/o, Amy Loredo, who presents with referral for weakness from CVA on 01/29. Pt reports she has R -sided weakness. Pt was sitting and watching TV when pt noticed tingling and numbness in her R arm. Pt went to [facility] ER and was transferred to [place]. Pt was in [facility] for 6 days and d/c'd home. Pt reports since d/c she has noticed improvements in her sensation and strength but still notes some R-sided weakness. Denies any falls in past 30 days. R arm weakness > R LE weakness per pt report. Pt denies performing any specific exercises since CVA but does report she has been trying to walk more. Pt's goal for PT is to gain her strength back. PMH: hypertension, high cholesterol Onset date: 01/30/24 New diagnosis of cancer in past 12 No months? Chief Complaint Weakness Prior Functional Limitations None Current Functional Limitations Housework,Recreation Activity, Walking Shoulder/Elbow Eval Shoulder Objective Measurements Shoulder MMT Right Shoulder Abduction Strength Grade 4 Good Shoulder Extension Strength Grade 4 Good Shoulder Flexion Strength Grade 4- Good- Shoulder Horizontal Abduction Strength 4 Good Grade Shoulder Horizontal Adduction Strength 4 Good Grade Shoulder External Rotation Strength 4 Good Grade Shoulder Internal Rotation Strength 4- Good- Grade Left Shoulder Abduction Strength Grade 4 Good Shoulder Flexion Strength Grade 4 Good Shoulder Horizontal Abduction Strength 4 Good Grade Shoulder Horizontal Adduction Strength 4 Good Grade Shoulder External Rotation Strength 4 Good Grade Shoulder Internal Rotation Strength 4 Good Grade Elbow Objective Measurements Hip/Knee Eval Gait Observation General Gait Pattern Observation No Deviations/Normal Assistive Device Assistive Devices None / NA MMT right Hip Flexion Strength Grade 4- Good- Hip Abduction Strength Grade 4- Good- Hip Adduction Strength Grade 4 Good Hip Extension Strength Grade 4 Good left Hip Flexion Strength Grade 4- Good- Hip Abduction Strength Grade 4 Good Hip Adduction Strength Grade 4 Good Hip Extension Strength Grade 4 Good Dynamic Gait Index Test Protocol Gait Level Surface Mild Impairment Query Text: Instructions: Walk at your normal speed from here to the next lucas (20'). Grading: Lucas the lowest category that applies. Change in Gait Speed Mild Impairment Query Text: Instructions: Begin walking at your normal pace (for 5'), when I tell you go , walk as fast as you can (for 5'). When I tell you slow , walk as slowly as you can (for 5'). Grading: Lucas the lowest category that applies. Gait with Horizontal Head Turns Mild Impairment Query Text: Instructions: Begin walking at your normal pace. When I tell you to look right , keep walking straight, but turn you head to the right. Keep looking to the right unit I tell you look left , then keep walking straight and turn your head to the left. Keep your head to the left until I tell you look straight , then keep walking straight, but return you head to the center. Grading: Lucas the lowest category that applies. Gait with Vertical Head Turns Mild Impairment Query Text: Instructions: Begin walking at your normal pace. When I tell you to look up , keep walking staight, but tip your head up. Keep looking up until I tell you to look down , then keep walking straight and tip your head down. Keep your head down until I tell you look straight , then keep walking straight, but return your head to the center. Grading: Lucas the lowest category that applies. Gait and Pivot Turn Normal Query Text: Instructions: Begin walking at your normal pace. When I tell you turn and stop , turn as quickly as you can to face the opposite direction and stop. Grading: Lucas the lowest category that applies. Step Over Obstacle Mild Impairment Query Text: Instructions: Begin walking at your normal speed. When you come to the shoebox, step over it, not around it and keep walking. Grading: Lucas the lowest category that applies. Step Around Obstacles Normal Query Text: Instructions: Begin walking at normal speed. When you come to the first cone (about 6' away), walk around the right side of it. When you come to the second cone (6' past first cone), walk around it to the left. Grading: Lucas the lowest category that applies. Steps Mild Impairment Query Text: Instructions: Walk up these stairs as you would at home. At the top, turn around and walk down. Grading: Lucas the lowest category that applies. Scoring Dynamic Gait Index Score 18 Miscellaneous Dx PT Eval Objective Objective 5 x STS test: 20 with UE use TUG test: 13 seconds without AD Rhomberg: PASS all sections. DGI: Human Resources Operations Manager strength (pt is right- handed): L = 20kg, R = 18kg Miscellaneous Goals Short Term Goals In 4 weeks, pt will: 1) Improve R sided marine engine mechanic strength to 20 pounds. 2) Improve B hip strength to 4 /5 3) Improve TUG test score to 11 seconds 4) Verbalize IND with HEP [facility] Goals In 8 weeks, pt will: 1) Improve BUE and BLE strength to 5/5 to return to PLOF 2) Improve DGI score to 3) Improve 5xSTS score to 12 seconds 4) Verbalize IND with HEP to improve strength Outpatient Therapy Assessment Impairments Problems/Impairmments Impaired Strength,Impaired Endurance,Impaired Transfers, Impaired Gait Pattern,Impaired Walking,Impaired Household Care,Impaired Stair Climbing, Impaired Stepping on Uneven Surface,Impaired Recreational Activities,Impaired Balance, Impaired TUG Time Prognosis Rehab Potential Good Comment Pt presents with generalized weakness (R UE/LE slightly weaker than L in some areas) and mildly impaired gait/ balance (per DGI). Pt would benefit from skilled OP PT to address deficits. Clinical Impression Consistent with Diagnosis Yes Consistent with Weakness from CVA Outpatient Therapy Plan of Care Treatment Plan May Include Therapeutic Exercise Including Home Yes Exercise Program Manual Therapy Techniques Yes Neuromuscular Re-education Yes Therapeutic Activities to Return to Yes Previous Functional/Work Level Gait Training Yes ADL/Self Care Education Yes Eval/Re-Eval Yes Frequency Times per week 2-3 times Duration Number of Weeks 6-8 weeks Addendums This patient is a candidate for social No or vocational rehab? Patient/Guardian verbally acknowledges Yes understanding of treatment program and consents to further treatment? Patient/Guardian verbally acknowledges Yes understanding of diagnosis, prognosis and goals for treatment? Eval Complexity PT Charges 29217 - Moderate Complexity PHYSICIAN CERTIFICATION: I certify the specified therapy services for Amy Loredo are required, authorized, and reviewed every 30 days.
--- NOTE | 2024-03-23 15:48 | HMH.RHREAS ---
Rehab Reassessment Rehab OP Re-assessment Start: 02/23/24 09:59 Freq: Status: Active Protocol: Document 03/23/24 14:45 RIVER (Rec: 03/23/24 15:47 RIVER [id number]) E-signed By Joy Reeder PT Dynamic Gait Index Test Protocol Gait Level Surface Normal Query Text: Instructions: Walk at your normal speed from here to the next lucas (20'). Grading: Lucas the lowest category that applies. Change in Gait Speed Mild Impairment Query Text: Instructions: Begin walking at your normal pace (for 5'), when I tell you go , walk as fast as you can (for 5'). When I tell you slow , walk as slowly as you can (for 5'). Grading: Lucas the lowest category that applies. Gait with Horizontal Head Turns Mild Impairment Query Text: Instructions: Begin walking at your normal pace. When I tell you to look right , keep walking straight, but turn you head to the right. Keep looking to the right unit I tell you look left , then keep walking straight and turn your head to the left. Keep your head to the left until I tell you look straight , then keep walking straight, but return you head to the center. Grading: Lucas the lowest category that applies. Gait with Vertical Head Turns Mild Impairment Query Text: Instructions: Begin walking at your normal pace. When I tell you to look up , keep walking staight, but tip your head up. Keep looking up until I tell you to look down , then keep walking straight and tip your head down. Keep your head down until I tell you look straight , then keep walking straight, but return your head to the center. Grading: Lucas the lowest category that applies. Gait and Pivot Turn Normal Query Text: Instructions: Begin walking at your normal pace. When I tell you turn and stop , turn as quickly as you can to face the opposite direction and stop. Grading: Lucas the lowest category that applies. Step Over Obstacle Mild Impairment Query Text: Instructions: Begin walking at your normal speed. When you come to the shoebox, step over it, not around it and keep walking. Grading: Lucas the lowest category that applies. Step Around Obstacles Normal Query Text: Instructions: Begin walking at normal speed. When you come to the first cone (about 6' away), walk around the right side of it. When you come to the second cone (6' past first cone), walk around it to the left. Grading: Lucas the lowest category that applies. Steps Mild Impairment Query Text: Instructions: Walk up these stairs as you would at home. At the top, turn around and walk down. Grading: Lucas the lowest category that applies. Scoring Dynamic Gait Index Score 19 Rehab Re-assessment Subjective Subjective Pt reports she is doing well. Pt agreeable to continue PT if some goals have not been met. Objective Objective Notes 5 x STS test: 17 with UE use TUG test: 11 seconds without AD DGI: Unbundler strength (pt is right- handed): L = 28kg, R = 24kg BLE MMTs: - Hip FLEX = 5/5 - Hip ABD = 4/5 - Hip ADD = 4/5 - Knee FLEX = 4+/5 - Knee EXT = 5/5 RUE strength: - Shoulder ABD: 4/5 - Shoulder flexion: 4/5 - BUE elbow flexion: 4/5 Assessment Progress Assessment Progressing as Expected Assessment Notes This is a reassessment for Amy Loredo who presents to PT for c/o weakness. Since IE, pt has been seen for 9 treatment visits that have consisted of education, theract, and therapeutic exercises focusing on strength . Pt with good attendance to scheduled PT visits and reports adherence to HEP. Since IE, pt with improvements in BLE and BUE strength, balance, well shooter strength, endurance, and gait. Pt still presents with impaired generalized endurance, minor gait deviations, and decreased UE strength. Pt would continue to benefit from skilled outpatient physical therapy to address remaining deficits and achieve LTGs. Patient goals met In 4 weeks, pt will: 1) Improve R sided well shooter strength to 20 pounds: MET 2) Improve B hip strength to 4 /5: MET 3) Improve TUG test score to 11 seconds: MET 4) Verbalize IND with HEP: MET In 8 weeks, pt will: 1) Improve BUE and BLE strength to 5/5 to return to PLOF: Not Met 2) Improve DGI score to 20/24: Not Met 3) Improve 5xSTS score to 12 seconds: Not Met 4) Verbalize IND with HEP to improve strength: MET Plan Plan Continue POC Frequency of Therapy 2-3 times weekly Duration of therapy 2-3 weeks Time and Billing Re-Eval Time 10 Re-Eval Billing Units 0 Charge for PT reassessment? No PHYSICIAN CERTIFICATION: I certify the specified therapy services for Amy Mondragon Glass are required, authorized, and reviewed every 30 days.
== END 2024-04-13 23:59 | disposition home or self-care (01) ==
LOC: PT 15:00
PROVIDERS: Visit Provider Nurse Practitioner Family
DX: R53.1 Weakness (principal); Z86.73 Personal history of transient ischemic attack (TIA), and cerebral infarction without residual deficits
CPT/HCPCS: 97110; 97163; 97530

== ENCOUNTER 2025-02-06 09:27 | Outpatient (CLI) | payer OTHER, SELFPAY ==
--- OUTSIDE RECORDS SUMMARY | 2025-02-06 09:29 | XMS_ITS | Clinical Summary ---
Author Organization [employer] ([place], [place], [place], [place]) Address [address] [place] [address] Care Team Providers Care Sky Diver Name Role Phone Sjh, Provider Not In The System MD Primary Care Provider Unavailable Allergies No known active allergies Medications azelastine (ASTELIN) 137 mcg (0.1 %) nasal spray 1 spray by each nostril route 2 (two) times daily as needed for rhinitis. Active citalopram (CeleXA) 20 MG tablet Take 1 tablet (20 mg total) by mouth daily. Active famotidine (PEPCID) 20 MG tablet Take 1 tablet (20 mg total) by mouth nightly. Active fluticasone furoate-vilante roL (Breo Ellipta) 100-25 mcg/dose dsdv Inhale 1 puff by mouth via inhaler daily. Active lisinopril-hydr oCHLOROthiazide (PRINZIDE,ZESTO RETIC) 20-25 mg per tablet Take 1 tablet by mouth 2 (two) times daily. Active pantoprazole (PROTONIX) 40 MG tablet Take 1 tablet (40 mg total) by mouth daily. Active tiotropium (SPIRIVA) 18 mcg inhalation capsule Inhale 1 capsule (18 mcg total) by mouth via inhaler daily. Active lisinopriL (ZESTRIL) 20 MG tablet Take 1 tablet (20 mg total) by mouth daily. 30 tablet 02/07/2024 02/07/20 25 Active hydroCHLOROthia zide (HYDRODIURIL) 25 MG tablet Take 1 tablet (25 mg total) by mouth daily. 30 tablet 02/07/2024 02/07/20 25 Active atorvastatin (LIPITOR) 80 MG tablet Take 1 tablet (80 mg total) by mouth daily. 30 tablet 02/06/2024 02/06/20 25 Active Problems Problem Noted Date Diagnosed Date Smoker 02/01/2024 Chronic obstructive pulmonary disease 02/01/2024 HTN (hypertension) 02/01/2024 CAD (coronary artery disease) 02/01/2024 Stented coronary artery 02/01/2024 Ischemic stroke 01/29/2024 Immunizations Immunization Administration Dates Next Due INFLUENZA(FLULAVAL,FLUZONE,F LUARIX)_0.5mL(6MOS+)TRI(IMM 129) 01/31/2024 Social History Tobacco Use Types Packs/Day Years Used Date Smoking Tobacco: Never Smokeless Tobacco: Never Tobacco Cessation:Counseling Given: Not Answered Alcohol Use Standard Drinks/Week Comments Never 0 (1 standard drink = 0.6 oz pur e alcohol) Utilities Answer Date Recorded In the past 12 months, has t he electric, gas, oil, or water company threatened to shut off services in your home? No 01/29/2024 Interpersonal Safety Answer Date Record ed How often does anyone, arturo cruz family and friends, physically hurt you? Never 01/29/2024 How often does anyone, arturo cruz family and friends, insult or talk down to you? Never 01/29/2024 How often does anyone, arturo cruz family and friends, threaten you with harm? Never 01/29/2024 How often does anyone, arturo cruz family and friends, scream or curse at you? Never 01/29/2024 Housing Stability Answer Date Recorded What is your living situation today? I have a [facility] place to live 01/29/[address] you li ve. Do you have problems with any of the following? None of the above 01/29/2024 Food Insecurity Answer Date Recorded Within the past 12 months, y ou worried that your food would run out before you got money to buy more. Never true 01/29/2024 Within the past 12 months, t he food you bought just didn't last and you didn't have money to get more. Never true 01/29/2024 Transportation Needs Answer Date Record ed In the past 12 months, has l ack of reliable transportation kept you from medical appointments, meetings, work or from getting things needed for daily living? No 01/29/2024 Financial Resource Strain Answer Date R ecorded How hard is it for you to pa y for the very basics like food, housing, medical care, and heating? Would you say it is: Not hard at all 01/29/2024 Employment Answer Date Recorded Do you want help finding or keeping work or a job? I do not need or want help 01/29/2024 Family and Community Support Answer Bi e Recorded If for any reason you need h elp with day-to-day activities such as bathing, preparing meals, shopping, managing finances, etc., do you get the help you need? I get all the help I need 01/29/2024 Feeling Lonely or Isolated 0 01/28 Educational Attainment Answer Date Serge rded Do you speak a language other than [place] at [facility]? No 01/29/2024 Do you want help with school or training? For example, starting or completing job training or getting a high school diploma, GED or equivalent. No 01/29/2024 Physical Activity Answer Date Recorded Number of minutes of exercise per week 0 01/29/2024 Self Management Answer Date Recorded Because of a physical, menta l, or emotional condition, do you have serious difficulty concentrating, remembering, or making decisions? (5 years or older) No 01/29/2024 Because of a physical, menta l, or emotional condition, do you have difficulty doing errands alone such as visiting a doctor's office or shopping? (15 years or older) No 01/29/2024 Substance Use Answer Date Recorded How many times in the past y ear have you used prescription drugs for non-medical reasons? Never 01/29/2024 How many times in the past year have you used il legal drugs? Never 01/29/2024 Mental Health Answer Date Recorded Calculation of above two rows 0 Comments No Sex and Gender Information Value Date Recorded Sex Assigned at Not on file Legal Sex Female 3:35 PM CDT Gender Identity Not on file Sexual Orientation Not on file Last Filed Vital Signs Vital Sign Reading Time Taken Comments Blood Pressure 142/69 02/06/2024 4:50 PM EDT Pulse 67 02/06/2024 12:35 PM EDT Temperature 36.5 C (97.7 F) 02/06/2024 4:50 PM EDT Respiratory Rate 15 02/06/2024 9:39 AM EDT Oxygen Saturation 98% 02/06/2024 12:35 PM EDT Inhaled Oxygen Concentration - - Weight 59 kg (130 lb) 01/29/2024 4:28 AM EDT Height 162.6 cm (5' 4 ) 01/29/2024 4:28 AM EDT Body Mass Index 22.31 01/29/2024 4:28 AM EDT Plan of Treatment Health Maintenance Due Date Last Done Comments CT Colonography 1959 Colonoscopy 1959 Colorectal Cancer Screening 1959 DXA SCAN 1959 FOBT/FIT 1959 Fit-DNA (Cologuard) 1959 Sigmoidoscopy 1959 Depression Screening (12+) 1971 HIV Screening 1974 Hepatitis C Screening 1977 Pap Smear 1980 Breast Cancer Screening 1999 Pneumococcal 50+ years (2 of 2 - PCV) 01/06/201810/2016 Respiratory Syncytial Virus (RSV) Adult or (1 - Risk 60-74 years 1-dose series) 2019 DTAP/TDAP/TD VACCINES (2 - Td or Tdap) 06/23/2020 Shingles Vaccine (Zoster) (2 of 2) 07/15/20202020 Falls Risk Screening 05/03/2024 COVID-19 VACCINE (3 - season) 2025, 08/07/2020 Influenza Vaccine (#1) 2025 01/31/2024, 2021 Tobacco Cessation Counseling and Screening (12+) 02/04/2025 02/05/2024 Lipid Panel 02/05/2027 02/06/2024, 01/29/2024 Medical Devices Implanted Type Area Gi Asst Device Identifier Shelf Expiration Date Model / Serial / Lot Stnt Trnscrtd Enroute [id number] [id number]-0940-[id number] - [id number] Implanted:Qt y: 1 on 02/02/2024 by Abhijeet Desir DO at [facility] IMPLANTS Left: Carotid Artery [facility] [id number] 01/30/2026 [id number] S / / [id number] Procedures Procedure Name Priority Date/Time Associated Diagnosis Comments LIPID PANEL Add-On 02/06/2024 6:58 AM EDT from Last 3 Months or Most Recently Relevant to Health Maintenance Results * Lipid panel (02/06/2024 6:58 AM EDT) Triglycerides 82 0 - 249 mg/dL 02/06/2024 5:34 PM EDT [facility] Cholesterol 131 0 - 199 mg/dL 02/06/2024 5:34 PM EDT [facility] Comment: 200 to 239 mg/dL = Moderate (borderline) >239 mg/dL = High HDL Cholesterol 48 >=40 mg/dL 5:34 PM EDT [facility] Comment: >=60 mg/dL = Desirable <40 mg/dL = Increased Risk All other components are listed individually or are calculations VLDL Cholesterol 16.4 5 - 40 mg/dL 02/06/2024 5:34 PM EDT [facility] Cholesterol/HDL ratio 2.7 0.0 - 3.2 02/06/2024 5:34 PM EDT [facility] LDl/HDL Ratio 1 0 - 4 02/06/2024 5:34 PM EDT [facility] RISK COMP 3 02/06/2024 5:34 PM EDT [facility] LDL Cholesterol, Calculated 67 0 - 99 mg/dL 02/06/2024 5:34 PM EDT [facility] Blood Venipuncture / Unknown 02/06/2024 6:58 AM EDT 02/06/2024 7:16 AM EDT us Dominique Frank DO LAB BLOOD ORDERABLES Final Resu lt [facility] [address] [phone] from Last 3 Months or Most Recently Relevant to Health Maintenance Insurance [address] [place] [id number] [employer] [place] Advance Directives For more information, please contact: [phone] * Full Code (Latest Code Status on File) Date Activated Date Inactivated Comments 01/29/2024 1:56 AM 02/06/2024 8:28 PM Care Teams Sky Diver Relationship Specialty Start Date End Date [facility], Provider Not In The System, [place] [address] PCP - General 01/29/24
--- OUTSIDE RECORDS SUMMARY | 2025-02-06 09:29 | XMS_ITS | Clinical Summary ---
Author Organization Healthcare Address [address] [place] [address] Care Team Providers Care Demand Generation Manager Name Role Phone Jluis Marie MD Primary Care Provider Family History Medical History Relation Name Comments Cardiac disorder Brother 1 Hypertension Brother 2 Alcohol abuse Father Diabetes Father Diabetes Mother Stroke Mother Hypertension Sister Relation Name Status Comments Brother 1 Brother 2 Father Mother Sister Social History Tobacco Use Types Packs/Day Years Used Date Smoking Tobacco: Every Day Alcohol Use Standard Drinks/Week Comments Yes 0 (1 standard drink = 0.6 oz pure alcohol) Alcoholic Drinks/day: Minimum alcohol consumption Comments Unknown Sex and Gender Information Value Date Recorded Sex Assigned at Not on file Legal Sex Female 6:16 PM EDT Gender Identity Not on file Sexual Orientation Not on file Last Filed Vital Signs Vital Sign Reading Time Taken Comments Blood Pressure - - Pulse - - Temperature - - Respiratory Rate - - Oxygen Saturation - - Inhaled Oxygen Concentration - - Weight 73 kg (161 lb) 06/26/2015 10:06 AM EST Height 162.6 cm (5' 4 ) 06/26/2015 10:06 AM EST Body Mass Index 27.64 06/26/2015 10:06 AM EST Plan of Treatment Not on file Care Teams Demand Generation Manager Relationship Specialty Start Date End Date Jluis Marie MD [address] [place] [address] [place] [id number] PCP - General 09/13/20
--- OUTSIDE RECORDS SUMMARY | 2025-02-06 09:29 | XMS_ITS | Referral Summary ---
Author Organization [employer] ([place], [place], [place], [place]) Address [address] [place] [address] Care Team Providers Care Soft Drink Powder Mixer Name Role Phone Sjh, Provider Not In [...] your living situation today? I have a [facility] place to live 01/29/2024 Think [...] Do you speak a language other than Korean at [facility]? No 01/29/2024 Do you want help with [...] Mass Index 22.31 01/29/2024 4:28 AM EDT Functional Status * Are you deaf or do you have serious difficulty hearing? Answer Date of Assessment Author No 02/06/2024 6:16 PM CDT Isa Zaidi RN * Are you blind or do you have serious difficulty seeing, even when wearing glasses? Answer Date of Assessment Author No 02/06/2024 6:16 PM Isa Casillas RN * Do you have serious difficulty walking or climbing stairs? Answer Date of Assessment Author Yes 02/06/2024 6:16 PM Isa Casillas RN * Do you have serious difficulty dressing or bathing? Answer Date of Assessment Author Yes 02/06/2024 6:16 PM Ias Casillas RN * Because of a physical, mental, or emotional condition, do you have serious difficulty doing errandsalone such as visiting the doctor? Answer Date of Assessment Author Yes 02/06/2024 6:16 PM Isa Casillas RN Mental Status * Because of a physical, mental, or emotional condition, do you have serious difficulty concentrating, remembering, or making decisions? (5 years old or older) Answer Entry Date Author Yes 02/06/2024 6:16 PM Isa Casillas RN Plan of Treatment Not on file Medical Devices Implanted Type Area Workday Manager Device Identifier Shelf Expiration Date Model / Serial / Lot Stnt Trnscrtd Enroute 9x40 Sr-0940-Cs - [id number] Implanted:Qt y: 1 on 02/02/2024 by Abhijeet Desir DO at [facility] IMPLANTS Left: Carotid Artery [facility] [id number] 01/30/2026 SR-0940-C S / / [id number] Procedures Procedure Name Priority Date/Time Associated Diagnosis Comments LIPID PANEL Add-On 02/06/2024 6:58 AM EDT from Last 3 Months or Most Recently Relevant to Health Maintenance Results * Lipid panel (02/06/2024 6:58 AM EDT) Triglycerides 82 0 - 249 mg/dL 02/06/2024 5:34 PM EDT [facility] Cholesterol 131 0 - 199 mg/dL 02/06/2024 5:34 PM EDT [facility] Comment: 200 to 239 mg/dL = Moderate (borderline) >239 mg/dL = High HDL Cholesterol 48 >=40 mg/dL 5:34 PM EDT [facility] Comment: >=60 mg/dL = Desirable <40 mg/dL = Increased Risk All other components are listed individually or are calculations VLDL Cholesterol 16.4 5 - 40 mg/dL 02/06/2024 5:34 PM EDT [facility] Cholesterol/HDL ratio 2.7 0.0 - 3.2 02/06/2024 5:34 PM EDT [facility] LDl/HDL Ratio 1 0 - 4 02/06/2024 5:34 PM EDT [facility] RISK COMP 3 02/06/2024 5:34 PM EDT [facility] LDL Cholesterol, Calculated 67 0 - 99 mg/dL 02/06/2024 5:34 PM EDT [facility] Blood Venipuncture / Unknown 02/06/2024 6:58 AM EDT 02/06/2024 7:16 AM EDT us Dominique Frank DO LAB BLOOD ORDERABLES Final Resu lt [facility] [address] [phone] from Last 3 Months or Most Recently Relevant to Health Maintenance Insurance [address] [place] [id number] [employer]NA [facility] Advance Directives For more information, please contact: [phone] * Full Code (Latest Code Status on File) Date Activated Date Inactivated Comments 01/29/2024 1:56 AM 02/06/2024 8:28 PM Care Teams Soft Drink Powder Mixer Relationship Specialty Start Date End Date [facility], Provider Not In The System, [place] [address] PCP - General 01/29/24
--- NOTE | 2025-02-06 10:30 | CA_ITS ---
FINAL REPORT TECHNIQUE: Lopez scale, color and spectral doppler images of the bilateral carotid arteries were obtained. CLINICAL HISTORY: CARIE s/p left CCA?ICA stenting, Smoker, COPD, HTN, HLD, Confusion, CAD, GE FINDINGS: Peak systolic velocity in the right internal carotid artery is 109 cm/sec. The internal carotid to common carotid artery ratio is 1.1. There is mild to moderate carotid artery stenosis and no significant plaque formation. The right vertebral artery is retrograde. Peak systolic velocity in the left internal carotid artery is 139 cm/sec. The internal carotid to common carotid artery ratio is 1.3. There mild to moderate significant carotid artery stenosis and no significant plaque formation. The left vertebral artery is antegrade. IMPRESSION: Less than 50% carotid stenosis bilaterally. Right vertebral artery is retrograde. Consider CTA. Reviewed, Interpreted and Dictated by Tiara Francois MD Transcribed by Cathryn Persaud Authenticated and [facility]
== END 2025-02-06 23:59 | disposition home or self-care (01) ==
LOC: RT 09:28
PROVIDERS: PCP Internal Medicine Adolescent Medicine; Visit Provider Nurse Practitioner Family
DX: I65.23 Occlusion and stenosis of bilateral carotid arteries (principal); I25.10 Atherosclerotic heart disease of native coronary artery without angina pectoris; I10 Essential (primary) hypertension; E78.5 Hyperlipidemia, unspecified; F17.200 Nicotine dependence, unspecified, uncomplicated; J44.9 Chronic obstructive pulmonary disease, unspecified; R41.0 Disorientation, unspecified; Z98.890 Other specified postprocedural states
CPT/HCPCS: 93880

== ENCOUNTER 2025-02-20 10:17 | Outpatient (CLI) | payer OTHER, SELFPAY ==
--- NOTE | 2025-02-20 10:20 | US_ITS ---
FINAL REPORT TECHNIQUE: Ultrasound images of the kidneys and bladder were obtained. CLINICAL HISTORY: RESISTANT HYPERTENSION/ ABNORMAL CREATININE FINDINGS: The right kidney measures 9.3 cm in length which is in the lower limits of normal. The left kidney measures 8.6 cm in length which is within the lower limits of normal. IMPRESSION: Symmetric bilateral renal atrophy. Reviewed, Interpreted and Dictated by Brady Lui MD Transcribed by Cathryn Persaud Authenticated and . [facility]
--- OUTSIDE RECORDS SUMMARY | 2025-02-20 10:20 | XMS_ITS | Clinical Summary ---
Author Organization Healthcare Address [address] [place] [address] Care Team Providers Care Salesperson Shoes Name Role Phone Jluis Marie MD Primary [...] of Treatment Not on file Care Teams Salesperson Shoes Relationship Specialty Start Date End Date Jluis Marie MD [address] [place] [address] [place] [address] PCP - General 09/13/20
--- OUTSIDE RECORDS SUMMARY | 2025-02-20 10:20 | XMS_ITS | Referral Summary ---
Author Organization [employer] ([place], [place], [place], [place]) Address [address] [place] [address] Care Team Providers Care Strategic Sourcing Consultant Name Role Phone Sj, Provider Not In The System MD Primary [...] mouth daily. 30 tablet 02/07/2024 02/07/20 25 hydroCHLOROthia zide (HYDRODIURIL) 25 MG tablet Take 1 tablet (25 mg total) by mouth daily. 30 tablet 02/07/2024 02/07/20 25 atorvastatin (LIPITOR) 80 MG tablet Take 1 [...] your living situation today? I have a [facility] place to live 01/29/2024 Think about the [...] Do you speak a language other than Slovenian at [facility]? No 01/29/2024 Do you want help with [...] of Assessment Author No 02/06/2024 6:16 PM CDIsa Steward RN * Are you blind or do [...] 02/06/2024 6:16 PM Isa Casillas RN * Because of a physical, [...] on file Medical Devices Implanted Type Area Fur Stretcher Device Identifier Shelf Expiration Date Model / Serial / Lot Stnt Trnscrtd Enroute 9x40 Sr-0940-Cs - [id number] Implanted:Qt y: 1 on 02/02/2024 by Abhijeet Desir DO at [facility] IMPLANTS Left: Carotid Artery [facility] [id number] 01/30/2026 SR-0940-C S / / [id number] Procedures Procedure Name Priority Date/Time Associated Diagnosis Comments LIPID PANEL Add-On 02/06/2024 6:58 AM EDT from Last 3 Months or Most Recently Relevant to Health Maintenance Results * Lipid panel (02/06/2024 6:58 AM EDT) Triglycerides 82 0 - 249 mg/dL 02/06/2024 5:34 PM EDT [facility] Cholesterol 131 0 - 199 mg/dL 02/06/2024 5:34 PM EDT [facility] Comment: 200 to 239 mg/dL = Moderate (borderline) >239 mg/dL = High HDL Cholesterol 48 >=40 mg/dL 5:34 PM EDT [facility] Comment: >=60 mg/dL = Desirable <40 mg/dL = Increased Risk All other components are listed individually or are calculations VLDL Cholesterol 16.4 5 - 40 mg/dL 02/06/2024 5:34 PM EDT [facility] Cholesterol/HDL ratio 2.7 0.0 - 3.2 02/06/2024 5:34 PM EDT [facility] LDl/HDL Ratio 1 0 - 4 02/06/2024 5:34 PM EDT [facility] RISK COMP 3 02/06/2024 5:34 PM EDT [facility] LDL Cholesterol, Calculated 67 0 - 99 mg/dL 02/06/2024 5:34 PM EDT [facility] Blood Venipuncture / Unknown 02/06/2024 6:58 AM EDT 02/06/2024 7:16 AM EDT us Dominique Frank DO LAB BLOOD ORDERABLES Final Resu lt [facility] [address] [phone] from Last 3 Months or Most Recently Relevant to Health Maintenance Insurance [address] [place] [id number] [employer]ETNA [facility] Advance Directives For more information, please contact: [phone] * Full Code (Latest Code Status on File) Date Activated Date Inactivated Comments 01/29/2024 1:56 AM 02/06/2024 8:28 PM Care Teams Strategic Sourcing Consultant Relationship Specialty Start Date End Date [facility], Provider Not In The System, [place] [address] PCP - General 01/29/24
--- OUTSIDE RECORDS SUMMARY | 2025-02-20 10:20 | XMS_ITS | Clinical Summary ---
Author Organization [employer] ([place], [place], [place], [place]) Address [address] [place] [address] Care Team Providers Care Mechanical Design Engineer Facilities Name Role Phone Sj, Provider Not In [...] your living situation today? I have a [facility] place to live 01/29/2024 Think about the [...] Do you speak a language other than Bhutanese at [facility]? No 01/29/2024 Do you want [...] 02/06/2024, 01/29/2024 Medical Devices Implanted Type Area Registered Nurse Post Partum Device Identifier Shelf Expiration Date Model / Serial / Lot Stnt Trnscrtd Enroute 9x40 Sr-0940-Cs - [id number] Implanted:Qt y: 1 on 02/02/2024 by Abhijeet Desir DO at [facility] IMPLANTS Left: Carotid Artery [facility] [id number] 01/30/2026 SR-0940-C S / / [id number] Procedures Procedure Name Priority Date/Time Associated Diagnosis Comments LIPID PANEL Add-On 02/06/2024 6:58 AM EDT from Last 3 Months or Most Recently Relevant to Health Maintenance Results * Lipid panel (02/06/2024 6:58 AM EDT) Triglycerides 82 0 - 249 mg/dL 02/06/2024 5:34 PM EDT [facility] Cholesterol 131 0 - 199 mg/dL 02/06/2024 5:34 PM EDT [facility] Comment: 200 to 239 mg/dL = Moderate (borderline) >239 mg/dL = High HDL Cholesterol 48 >=40 mg/dL 5:34 PM EDT [facility] Comment: >=60 mg/dL = Desirable <40 mg/dL = Increased Risk All other components are listed individually or are calculations VLDL Cholesterol 16.4 5 - 40 mg/dL 02/06/2024 5:34 PM EDT [facility] Cholesterol/HDL ratio 2.7 0.0 - 3.2 02/06/2024 5:34 PM EDT [facility] LDl/HDL Ratio 1 0 - 4 02/06/2024 5:34 PM EDT [facility] RISK COMP 3 02/06/2024 5:34 PM EDT [facility] LDL Cholesterol, Calculated 67 0 - 99 mg/dL 02/06/2024 5:34 PM EDT [facility] Blood Venipuncture / Unknown 02/06/2024 6:58 AM EDT 02/06/2024 7:16 AM EDT us Dominique Frank DO LAB BLOOD ORDERABLES Final Resu lt [facility] [address] [phone] from Last 3 Months or Most Recently Relevant to Health Maintenance Insurance [address] [place] [id number] [employer] [facility] [place] Advance Directives For more information, please contact: [phone] * Full Code (Latest Code Status on File) Date Activated Date Inactivated Comments 01/29/2024 1:56 AM 02/06/2024 8:28 PM Care Teams Mechanical Design Engineer Facilities Relationship Specialty Start Date End Date [facility], Provider Not In The System, [place] [address] PCP - General 01/29/24
== END 2025-02-20 23:59 | disposition home or self-care (01) ==
LOC: RAD 10:17
PROVIDERS: PCP Internal Medicine Adolescent Medicine; Visit Provider Nurse Practitioner Family
DX: N26.1 Atrophy of kidney (terminal) (principal); I10 Essential (primary) hypertension; R94.4 Abnormal results of kidney function studies
CPT/HCPCS: 76770

== ENCOUNTER 2025-04-19 09:20 | Outpatient (CLI) | payer OTHER, SELFPAY ==
--- NOTE | 2025-04-19 09:23 | MM_ITS ---
PROCEDURE INFORMATION: Exam: MG Bilateral Screening 3D Mammography Exam date and time: 04/19/2025 9:51 AM Age: 64 years old Clinical indication: Screening examination TECHNIQUE: Imaging protocol: Bilateral Screening tomosynthesis and 2D mammography including computer-aided detection (CAD) when performed. COMPARISON: 1. MG MM DIG SCREENING MAMM BI W/CAD 03/08/2023 12:51 PM 2. MG MM DIG MAMM DX UNILAT RT CAD 08/26/2022 2:06 PM FINDINGS: MAMMOGRAPHY: Breast composition: There are scattered areas of fibroglandular density. Mass: No suspicious masses. Architectural distortion: None. Calcifications: No suspicious calcifications. Asymmetric density: None. Skin thickening: None. Axillary adenopathy: None. IMPRESSION: No mammographic evidence of malignancy. Annual screening is recommended unless otherwise clinically indicated. ASSESSMENT: BI-RADS Category 1: Negative.
--- OUTSIDE RECORDS SUMMARY | 2025-04-19 09:32 | XMS_ITS | Clinical Summary ---
Author Organization [employer] ([place], [place], [place], [place], [place]) Address [address] [place] [address] Care Team Providers Care Electrotyper Name Role Phone Sj, Provider Not In [...] total) by mouth via inhaler daily. Active Active Problems Problem Noted Date Diagnosed Date [...] your living situation today? I have a [facility] place to live 01/29/2024 Think about [...] Do you speak a language other than Slovak at [facility]? No 01/29/2024 Do you want help with [...] 07/15/20202020 Falls Risk Screening 05/03/2024 COVID-19 VACCINE ( - season) 2025, 08/07/2020 Influenza Vaccine (#1) 2025 01/31/2024, 2021 Tobacco Cessation Counseling and Screening (12+) 02/04/2025 02/05/2024 Lipid Panel 02/05/2027 02/06/2024, 01/29/2024 Medical Devices Implanted Type Area Steam Turbine Operator Device Identifier Shelf Expiration Date Model / Serial / Lot Stnt Trnscrtd Enroute 9x40 Sr-0940-Cs - [id number] Implanted:Qt y: 1 on 02/02/2024 by Abhijeet Desir DO at [facility] IMPLANTS Left: Carotid Artery [facility] [id number] 01/30/2026 SR-0940-C S / / [id number] Procedures Procedure Name Priority Date/Time Associated Diagnosis Comments LIPID PANEL Add-On 02/06/2024 6:58 AM EDT from Last 3 Months or Most Recently Relevant to Health Maintenance Results * Lipid panel (02/06/2024 6:58 AM EDT) Triglycerides 82 0 - 249 mg/dL 02/06/2024 5:34 PM EDT [facility] Cholesterol 131 0 - 199 mg/dL 02/06/2024 5:34 PM EDT [facility] Comment: 200 to 239 mg/dL = Moderate (borderline) >239 mg/dL = High HDL Cholesterol 48 >=40 mg/dL 5:34 PM EDT [facility] Comment: >=60 mg/dL = Desirable <40 mg/dL = Increased Risk All other components are listed individually or are calculations VLDL Cholesterol 16.4 5 - 40 mg/dL 02/06/2024 5:34 PM EDT [facility] Cholesterol/HDL ratio 2.7 0.0 - 3.2 02/06/2024 5:34 PM EDT [facility] LDl/HDL Ratio 1 0 - 4 02/06/2024 5:34 PM EDT [facility] RISK COMP 3 02/06/2024 5:34 PM EDT [facility] LDL Cholesterol, Calculated 67 0 - 99 mg/dL 02/06/2024 5:34 PM EDT [facility] Blood Venipuncture / Unknown 02/06/2024 6:58 AM EDT 02/06/2024 7:16 AM EDT us Dominique Frank DO LAB BLOOD ORDERABLES Final Resu lt [facility] [address] [phone] from Last 3 Months or Most Recently Relevant to Health Maintenance Insurance [address] [place] [id number] [employer]NA [facility] Advance Directives For more information, please contact: [phone] * Full Code (Latest Code Status on File) Date Activated Date Inactivated Comments 01/29/2024 1:56 AM 02/06/2024 8:28 PM Care Teams Electrotyper Relationship Specialty Start Date End Date [facility], Provider Not In The System, [place] [address] PCP - General 01/29/24
--- OUTSIDE RECORDS SUMMARY | 2025-04-19 09:32 | XMS_ITS | Referral Summary ---
Author Organization [employer] ([place], [place], [place], [place], [place]) Address [address] [place] [address] Care Team Providers Care Cake Wrapper Name Role Phone Sj, Provider Not In [...] your living situation today? I have a [facility] place to live 01/29/2024 Think about the [...] Do you speak a language other than German at [facility]? No 01/29/2024 Do you [...] 02/06/2024 6:16 PM Isa Casillas RN * Are you blind or do [...] on file Medical Devices Implanted Type Area Cut And Cover Line Worker Device Identifier Shelf Expiration Date Model / Serial / Lot Stnt Trnscrtd Enroute 9x40 Sr-0940-Cs - [id number] Implanted:Qt y: 1 on 02/02/2024 by Abhijeet Desir DO at [facility] IMPLANTS Left: Carotid Artery [facility] [id number] 01/30/2026 SR-0940-C S / / [id number] Procedures Procedure Name Priority Date/Time Associated Diagnosis Comments LIPID PANEL Add-On 02/06/2024 6:58 AM EDT from Last 3 Months or Most Recently Relevant to Health Maintenance Results * Lipid panel (02/06/2024 6:58 AM EDT) Triglycerides 82 0 - 249 mg/dL 02/06/2024 5:34 PM EDT [facility] Cholesterol 131 0 - 199 mg/dL 02/06/2024 5:34 PM EDT [facility] Comment: 200 to 239 mg/dL = Moderate (borderline) >239 mg/dL = High HDL Cholesterol 48 >=40 mg/dL 5:34 PM EDT [facility] Comment: >=60 mg/dL = Desirable <40 mg/dL = Increased Risk All other components are listed individually or are calculations VLDL Cholesterol 16.4 5 - 40 mg/dL 02/06/2024 5:34 PM EDT [facility] Cholesterol/HDL ratio 2.7 0.0 - 3.2 02/06/2024 5:34 PM EDT [facility] LDl/HDL Ratio 1 0 - 4 02/06/2024 5:34 PM EDT [facility] RISK COMP 3 02/06/2024 5:34 PM EDT [facility] LDL Cholesterol, Calculated 67 0 - 99 mg/dL 02/06/2024 5:34 PM EDT [facility] Blood Venipuncture / Unknown 02/06/2024 6:58 AM EDT 02/06/2024 7:16 AM EDT us Dominique Frank DO LAB BLOOD ORDERABLES Final Resu lt [facility] [address] [phone] from Last 3 Months or Most Recently Relevant to Health Maintenance Insurance [address] [id number] [employer] [facility] Advance Directives For more information, please contact: [phone] * Full Code (Latest Code Status on File) Date Activated Date Inactivated Comments 01/29/2024 1:56 AM 02/06/2024 8:28 PM Care Teams Cake Wrapper Relationship Specialty Start Date End Date [facility], Provider Not In The System, [place] [address] PCP - General 01/29/24
--- OUTSIDE RECORDS SUMMARY | 2025-04-19 09:32 | XMS_ITS | Clinical Summary ---
Author Organization Healthcare Address [address] [place] [address] Care Team Providers Care Insurance Sales Representative Name Role Phone Jluis Marie MD Primary [...] of Treatment Not on file Care Teams Insurance Sales Representative Relationship Specialty Start Date End Date Jluis Marie MD [address] [place] [address] [place] [address] PCP - General 09/13/20
== END 2025-04-19 23:59 | disposition home or self-care (01) ==
LOC: RAD 09:21
PROVIDERS: PCP Internal Medicine Adolescent Medicine; Visit Provider Nurse Practitioner Family
DX: Z12.31 Encounter for screening mammogram for malignant neoplasm of breast (principal); R92.323 Mammographic fibroglandular density, bilateral breasts
CPT/HCPCS: 77063; 77067